=== PATIENT | female | born 1980 | race African-American/Black ===

== ENCOUNTER 2018-11-30 12:19 | Emergency (ER) | payer SELFPAY ==
[2018-11-30] MEDS ORDERED: NA CHLORIDE 0.9% 1,000 ML ONE (12:55)
[2018-11-30] MEDS ORDERED: KETOROLAC 30 MG/ML INJ ONE (12:55)
[2018-11-30] MEDS ORDERED: ONDANSETRON 4 MG/2 ML VIAL ONE (12:55)
[2018-11-30 13:03] LABS: Urine Blood NEGATIVE (NEG); Urine Glucose 2+ (NEG); Urine Protein NEGATIVE (NEG); Urine pH 6.5 (5.0-7.0)
[2018-11-30 13:18] LABS: Absolute Lymphocytes (CBC) 3.6 K/uL (0.7-4.9); Basophils % 0.8 % (0-1.3); Hematocrit 41.4 % (36.0-45.0); Lymphocytes % 44.5 % (15.3-44.8); MPV 8.6 fL (7.6-11.3)
[2018-11-30 13:30] LABS: ALT/SGPT 23 U/L (12-78); AST/SGOT 11 U/L (15-37); Alkaline Phosphatase 113 U/L (45-117); BUN Blood Urea Nitrogen 8 mg/dL (7-18); Bicarbonate 28 mmol/L (21-32); Bilirubin Total 0.3 mg/dL (0.2-1.0); Glucose Level 220 mg/dL (74-106); Potassium 3.9 mmol/L (3.5-5.1); Protein, Total 7.4 g/dL (6.4-8.2); Sodium Level 139 mmol/L (136-145)
--- NOTE | 2018-11-30 13:48 | ER ---
Nurse's Notes [facility] Name: Jeffrey Diaz Age: 38 yrs Sex: Female : 1980 Arrival Date: 11/30/2018 Time: 12:23 Bed 26 Private MD: Diagnosis: Migraine Presentation: 11/30 12:32 Presenting complaint: Patient states: has had a headache for a couple of days. It was dm5 getting a little worse while sitting in orientation. The patient states that she became nauseated and weak after eating a salad. Pt states that she has a history of migraines but that this one is a feels a little different. BP at this time is 123/86 MAP 100. Transition of care: patient was not received from another setting of care. Onset of symptoms was November 30, 2018. Risk Assessment: Do you want to hurt yourself or someone else? Patient reports no desire to harm self or others. Initial Sepsis Screen: Does the patient meet any 2 criteria? No. Patient's initial sepsis screen is negative. Does the patient have a suspected source of infection? No. Patient's initial sepsis screen is negative. Care prior to arrival: None. 12:32 Method Of Arrival: Wheelchair dm5 12:32 Acuity: NADER 3 dm5 Triage Assessment: 12:35 General: Appears in no apparent distress. uncomfortable, Behavior is cooperative. Pain: dm5 Complains of pain in head. Neuro: Level of Consciousness is awake, alert, obeys commands, Reports headache. Cardiovascular: No deficits noted. Respiratory: No deficits noted. GI: Reports nausea. : No deficits noted. No signs and/or symptoms were reported regarding the genitourinary system. Derm: Skin is pink, warm \T\ dry. 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 - Social history:: Smoking status: Patient/guardian denies using tobacco. - Ebola Screening: : Patient negative for fever greater than or equal to 101.5 degrees Fahrenheit, and additional compatible Ebola Virus Disease symptoms Patient denies exposure to infectious person Patient denies travel to an Ebola-affected area in the 21 days before illness onset No symptoms or risks identified at this time. - Family history:: not pertinent. Screenin:45 Abuse screen: Denies threats or abuse. Denies injuries from another. Nutritional ca1 screening: No deficits noted. Tuberculosis screening: No symptoms or risk factors identified. Fall Risk IV access (20 points). Assessment: 12:45 General: Appears in no apparent distress. comfortable, Behavior is calm, cooperative, ca1 appropriate for age. Pain: Complains of pain in right base of the skull and right occipital area and right side of the back of head and right frontal area and left base of the skull and left occipital area and left side of the back of head and left frontal area and forehead and top of head and head Pain currently is 10 out of 10 on a pain scale. Quality of pain is described as throbbing. 12:45 Neuro: Level of Consciousness is awake, alert, obeys commands, Oriented to person, ca1 place, time, situation. Cardiovascular: Heart tones S1 S2 present Capillary refill < 3 seconds Patient's skin is warm and dry. Respiratory: Airway is patent Respiratory effort is even, unlabored, Respiratory pattern is regular, symmetrical, Breath sounds are clear bilaterally. GI: Abdomen is flat, non-distended, Reports nausea. : No deficits noted. No signs and/or symptoms were reported regarding the genitourinary system. EENT: No deficits noted. No signs and/or symptoms were reported regarding the EENT system. Derm: Skin is intact, is healthy with good turgor, Skin is pink, warm \T\ dry. Musculoskeletal: Circulation, motion, and sensation intact. Capillary refill < 3 seconds. 13:30 Reassessment: Patient appears in no apparent distress at this time. Patient and/or ca1 family updated on plan of care and expected duration. Pain level reassessed. Patient is alert, oriented x 3, equal unlabored respirations, skin warm/dry/pink. 14:30 Reassessment: Patient appears in no apparent distress at this time. Patient and/or ca1 family updated on plan of care and expected duration. Pain level reassessed. Patient is alert, oriented x 3, equal unlabored respirations, skin warm/dry/pink. Vital Signs: 12:35 BP 123 / 86; Pulse 79; Resp 17; Temp 98.8; Pulse Ox 100% on R/A; dm5 12:35 Weight 65.77 kg (R); Height 5 ft. 2 in. (157.48 cm); Pain 10/10; ca1 13:30 BP 107 / 74; Pulse 85; Resp 16 S; Pulse Ox 100% on R/A; ca1 14:30 BP 121 / 79; Pulse 81; Resp 16 S; Temp 98(O); Pulse Ox 100% on R/A; ca1 12:35 Body Mass Index 26.52 (65.77 kg, 157.48 cm) ca1 ED Course: 12:23 Patient arrived in ED. iw 12:25 Teto Cardenas MD is Attending Physician. bennett 12:26 Karen Licea, SID is Primary Nurse. ca1 12:34 Triage completed. dm5 12:35 Arm band placed on right wrist. Patient placed in an exam room, in a wheelchair, on dm5 security monitor. 12:45 Patient has correct armband on for positive identification. Placed in gown. Bed in low ca1 position. Call light in reach. Side rails up X2. monitor and storage bin tender on. Pulse ox on. NIBP on. Door closed. Noise minimized. Lights dimmed. Warm blanket given. 12:45 No provider procedures requiring assistance completed. Inserted saline lock: 20 gauge ca1 in right antecubital area, using aseptic technique. Blood collected. 12:50 Urine collected: clean catch specimen, clear, rocky colored. jp3 14:39 IV discontinued, intact, bleeding controlled, No redness/swelling at site. Pressure ca1 dressing applied. Administered Medications: 12:55 Drug: NS 0.9% 1000 ml Route: IV; Rate: 1 bolus; Site: right antecubital; ca1 13:55 Follow up: Response: No adverse reaction; IV Status: Completed infusion; IV Intake: ca1 1000ml 12:55 Drug: TORadol 30 mg Route: IVP; Site: right antecubital; ca1 13:35 Follow up: Response: No adverse reaction; Pain is decreased ca1 12:56 Drug: Zofran 4 mg Route: IVP; Site: right antecubital; ca1 13:30 Follow up: Response: No adverse reaction; Nausea is decreased ca1 Intake: 13:55 IV: 1000ml; Total: 1000ml. ca1 Outcome: 13:48 Discharge ordered by MD. guajardo 14:39 Discharged to home ambulatory. ca1 14:39 Condition: stable 14:39 Discharge instructions given to patient, Instructed on discharge instructions, follow up and referral plans. medication usage, Demonstrated understanding of instructions, follow-up care, medications, Prescriptions given X 2. 14:43 Patient left the ED. ca1 Signatures: Ashlyn Larson, RN RN Teto Garcia MD MD cha Williams, Irene, RN Mitchel Valentin 3 Karen Licea RN RN ca1
--- NOTE | 2018-11-30 13:49 | EDPHYS ---
Physician Documentation [facility] Name: Jeffrey Diaz Age: 38 yrs Sex: Female : 1980 Arrival Date: 11/30/2018 Time: 12:23 Bed 26 Private MD: ED Physician Teto Cardenas HPI: 11/30 12:48 This 38 yrs old Black Female presents to ER via Wheelchair with complaints of Headache. bennett 12:48 The patient complains of pain to the top of head, forehead, left frontal area, left bennett side of the back of head, left occipital area, left base of the skull, right frontal area, right side of the back of head, right occipital area and right base of the skull. The patient describes the headache as aching. Onset: The symptoms/episode began/occurred just prior to arrival, 2 day(s) ago. Associated signs and symptoms: Pertinent positives: weakness. Severity of symptoms: At its worst the pain was mild, moderate, in the emergency department the pain is unchanged. Headache History: The patient has had previous headaches and this one is similar to previous episodes. The symptoms are alleviated by Darkened room, quiet, remaining still, the symptoms are aggravated by lights, movement, noise. The patient has experienced similar episodes in the past, multiple times. 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 - Social history:: Smoking status: Patient/guardian denies using tobacco. - Ebola Screening: : Patient negative for fever greater than or equal to 101.5 degrees Fahrenheit, and additional compatible Ebola Virus Disease symptoms Patient denies exposure to infectious person Patient denies travel to an Ebola-affected area in the 21 days before illness onset No symptoms or risks identified at this time. - Family history:: not pertinent. ROS: 12:48 Constitutional: Negative for fever, chills, and weight loss, Eyes: Negative for injury, bennett pain, redness, and discharge, ENT: Negative for injury, pain, and discharge, Neck: Negative for injury, pain, and swelling, Cardiovascular: Negative for chest pain, palpitations, and edema, Respiratory: Negative for shortness of breath, cough, wheezing, and pleuritic chest pain, Abdomen/GI: Negative for abdominal pain, nausea, vomiting, diarrhea, and constipation, Back: Negative for injury and pain, : Negative for injury, bleeding, discharge, and swelling, MS/Extremity: Negative for injury and deformity, Skin: Negative for injury, rash, and discoloration, Psych: Negative for depression, anxiety, suicide ideation, homicidal ideation, and hallucinations, Allergy/Immunology: Negative for hives, rash, and allergies, Endocrine: Negative for neck swelling, polydipsia, polyuria, polyphagia, and marked weight changes, Hematologic/Lymphatic: Negative for swollen nodes, abnormal bleeding, and unusual bruising. 12:48 Neuro: Positive for headache. Exam: 12:48 Constitutional: This is a well developed, well nourished patient who is awake, alert, bennett and in no acute distress. Head/Face: Normocephalic, atraumatic. Eyes: Pupils equal round and reactive to light, extra-ocular motions intact. Lids and lashes normal. Conjunctiva and sclera are non-icteric and not injected. Cornea within normal limits. Periorbital areas with no swelling, redness, or edema. ENT: Nares patent. No nasal discharge, no septal abnormalities noted. Tympanic membranes are normal and external auditory canals are clear. Oropharynx with no redness, swelling, or masses, exudates, or evidence of obstruction, uvula midline. Mucous membranes moist. Neck: Trachea midline, no thyromegaly or masses palpated, and no cervical lymphadenopathy. Supple, full range of motion without nuchal rigidity, or vertebral point tenderness. No Meningismus. Chest/axilla: Normal chest wall appearance and motion. Nontender with no deformity. No lesions are appreciated. Cardiovascular: Regular rate and rhythm with a normal S1 and S2. No gallops, murmurs, or rubs. Normal PMI, no JVD. No pulse deficits. Respiratory: Lungs have equal breath sounds bilaterally, clear to auscultation and percussion. No rales, rhonchi or wheezes noted. No increased work of breathing, no retractions or nasal flaring. Abdomen/GI: Soft, non-tender, with normal bowel sounds. No distension or tympany. No guarding or rebound. No evidence of tenderness throughout. Back: No spinal tenderness. No costovertebral tenderness. Full range of motion. Skin: Warm, dry with normal turgor. Normal color with no rashes, no lesions, and no evidence of cellulitis. MS/ Extremity: Pulses equal, no cyanosis. Neurovascular intact. Full, normal range of motion. Neuro: Awake and alert, GCS 15, oriented to person, place, time, and situation. Cranial nerves II-XII grossly intact. Motor strength 5/5 in all extremities. Sensory grossly intact. Cerebellar exam normal. Normal gait. Psych: Awake, alert, with orientation to person, place and time. Behavior, mood, and affect are within normal limits. 12:48 Neck: ROM/movement: is normal, no acute changes, Meningeal signs: are not present, Kernig's sign is negative, Brudzinski's sign is negative. Vital Signs: 12:35 BP 123 / 86; Pulse 79; Resp 17; Temp 98.8; Pulse Ox 100% on R/A; dm5 12:35 Weight 65.77 kg (R); Height 5 ft. 2 in. (157.48 cm); Pain 10/10; ca1 13:30 BP 107 / 74; Pulse 85; Resp 16 S; Pulse Ox 100% on R/A; ca1 14:30 BP 121 / 79; Pulse 81; Resp 16 S; Temp 98(O); Pulse Ox 100% on R/A; ca1 12:35 Body Mass Index 26.52 (65.77 kg, 157.48 cm) ca1 MDM: 12:25 Patient medically screened. [facility] 12:51 Data reviewed: vital signs, nurses notes, lab test result(s). [facility] 11/30 12:48 Order name: CBC with Diff; Complete Time: 13:47 [facility] 11/30 12:48 Order name: Comprehensive Metabolic Panel; Complete Time: 13:47 [facility] 11/30 12:59 Order name: Urine Dipstick--Ancillary (enter results); Complete Time: 13:47 11/30 12:59 Order name: Urine --Ancillary (enter results); Complete Time: 13:47 11/30 12:48 Order name: Urine Dipstick-Ancillary (obtain specimen); Complete Time: 12:50 [facility] 11/30 12:48 Order name: Urine Test (obtain specimen); Complete Time: 12:50 [facility] Administered Medications: 12:55 Drug: NS 0.9% 1000 ml Route: IV; Rate: 1 bolus; Site: right antecubital; ca1 13:55 Follow up: Response: No adverse reaction; IV Status: Completed infusion; IV Intake: ca1 1000ml 12:55 Drug: TORadol 30 mg Route: IVP; Site: right antecubital; ca1 13:35 Follow up: Response: No adverse reaction; Pain is decreased ca1 12:56 Drug: Zofran 4 mg Route: IVP; Site: right antecubital; ca1 13:30 Follow up: Response: No adverse reaction; Nausea is decreased ca1 Disposition: 11/30/18 13:48 Discharged to Home. Impression: Migraine. - Condition is Stable. - Discharge Instructions: Migraine Headache, Migraine Headache, [id number]. - Prescriptions for Fioricet with Codeine 50- 325-40-30 mg Oral capsule - take 1 capsule by ORAL route every 4 hours as needed not to exceed 6 capsules per 24hrs; 20 capsule. Zofran 4 mg Oral Tablet - take 1 tablet by ORAL route every 12 hours As needed; 20 tablet. - Medication Reconciliation Form, Thank You Letter, Antibiotic Education, Prescription Opioid Use form. - Follow up: Private Physician; When: 2 - 3 days; Reason: Recheck today's complaints, Continuance of care, Re-evaluation by your physician. - Problem is new. - Symptoms have improved. Signatures: Dispatcher [employer] Ashlyn Bledsoe RN RN dm5 Teto Cardenas MD MD cha Acob, Cheryl, RN RN ca1 Corrections: (The following items were deleted from the chart) 14:43 13:48 11/30/2018 13:48 Discharged to Home. Impression: Migraine. Condition is Stable. ca1 Discharge Instructions: Migraine Headache, Migraine Headache, [id number]. Prescriptions for Fioricet with Codeine 01-724-58-30 mg Oral capsule - take 1 capsule by ORAL route every 4 hours as needed not to exceed 6 capsules per 24hrs; 20 capsule, Zofran 4 mg Oral Tablet - take 1 tablet by ORAL route every 12 hours As needed; 20 tablet. and Forms are Medication Reconciliation Form, Thank You Letter, Antibiotic Education, Prescription Opioid Use. Follow up: Private Physician; When: 2 - 3 days; Reason: Recheck today's complaints, Continuance of care, Re-evaluation by your physician. Problem is new. Symptoms have improved. bennett
== END 2018-11-30 14:43 | disposition home or self-care (01) ==
LOC: ER 12:19
DX: G43.909 Migraine, unspecified, not intractable, without status migrainosus (principal)
CPT/HCPCS: 36415; 80053; 81003; 81025; 85025; 96361; 96374; 96375; 99284; J2405; J7030

== ENCOUNTER 2019-01-16 11:55 | Emergency (ER) | payer OTHER, SELFPAY ==
[2019-01-16] MEDS ORDERED: MORPHINE 4 MG/ML SYR ONE (13:23)
[2019-01-16] MEDS ORDERED: NA CHLORIDE 0.9% 1,000 ML ONE (13:23)
[2019-01-16] MEDS ORDERED: ONDANSETRON 4 MG/2 ML VIAL ONE (13:23)
[2019-01-16 13:29] LABS: Absolute Lymphocytes (CBC) 3.1 K/uL (0.7-4.9); Basophils % 0.9 % (0-1.3); Hematocrit 39.6 % (36.0-45.0); Lymphocytes % 42.7 % (15.3-44.8); MPV 8.8 fL (7.6-11.3); RBC Red Blood Cell Count 4.43 M/uL (3.86-4.86)
--- NOTE | 2019-01-16 13:41 | RAD REPORT ---
EXAM DESCRIPTION: CT - Abdomen Pelvis Wo Contrast - 01/16/2019 1:28 pm CLINICAL HISTORY: Abdominal pain vomiting COMPARISON: None TECHNIQUE: Computed axial tomography of the abdomen and pelvis was obtained. IV and oral contrast we re not requested. All CT scans are performed using dose optimization technique as appropriate and may include automated exposure control or mA/KV adjustment according to patient size. FINDINGS: The evaluation of solid organs, vessels and bowel is limited secondary to the lack of con trast administration. The liver, spleen, pancreas, adrenals and right kidney appear grossly normal. 15 millimeter low-density upper pole left kidney The appendix is normal. There is no evidence of diverticulitis. IMPRESSION: A 15 millimeter low-density upper pole left kidney could either represent a cyst or mild pyelocaliectasis. Normal appendix
[2019-01-16 13:50] LABS: ALT/SGPT 15 U/L (12-78); AST/SGOT 10 U/L (15-37); Albumin 3.9 g/dL (3.4-5.0); Alkaline Phosphatase 121 U/L (45-117); BUN Blood Urea Nitrogen 4 mg/dL (7-18); Bicarbonate 28 mmol/L (21-32); Bilirubin Direct 0.2 mg/dL (0-0.2); Bilirubin Total 0.5 mg/dL (0.2-1.0); Glucose Level 206 mg/dL (74-106); Lipase 120 U/L (73-393); Potassium 3.7 mmol/L (3.5-5.1); Protein, Total 7.2 g/dL (6.4-8.2); Sodium Level 138 mmol/L (136-145)
[2019-01-16 13:53] LABS: Urine Blood NEGATIVE (NEG); Urine Glucose 2+ (NEG); Urine Protein NEGATIVE (NEG); Urine pH 6.5 (5.0-7.0)
--- NOTE | 2019-01-16 14:20 | EDPHYS ---
Physician Documentation [facility] Name: Jeffrey Diaz Age: 38 yrs Sex: Female : 1980 Arrival Date: 01/16/2019 Time: 11:58 Bed 6 Private MD: GUADALUPE Physician Teto Cardenas HPI: 01/16 13:07 This 38 yrs old Black Female presents to ER via Wheelchair with complaints of Abdominal bennett Pain. 13:07 The patient presents with abdominal pain in the upper abdomen, in the lower abdomen. bennett Onset: The symptoms/episode began/occurred 2 day(s) ago. The patient presents to the emergency department with nausea, vomiting, that is continuous. Onset: The symptoms/episode began/occurred 2 day(s) ago. Possible causes: unknown. Associated signs and symptoms: The patient has no apparent associated signs or symptoms. Modifying factors: The symptoms are alleviated by nothing, the symptoms are aggravated by nothing. 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 - Social history:: Smoking status: Patient/guardian denies using tobacco. - Ebola Screening: : No symptoms or risks identified at this time. - Family history:: not pertinent. ROS: 13:07 Constitutional: Negative for fever, chills, and weight loss, Eyes: Negative for injury, bennett pain, redness, and discharge, ENT: Negative for injury, pain, and discharge, Neck: Negative for injury, pain, and swelling, Cardiovascular: Negative for chest pain, palpitations, and edema, Respiratory: Negative for shortness of breath, cough, wheezing, and pleuritic chest pain, Back: Negative for injury and pain, : Negative for injury, bleeding, discharge, and swelling, MS/Extremity: Negative for injury and deformity, Skin: Negative for injury, rash, and discoloration, Neuro: Negative for headache, weakness, numbness, tingling, and seizure, Psych: Negative for depression, anxiety, suicide ideation, homicidal ideation, and hallucinations, Allergy/Immunology: Negative for hives, rash, and allergies, Endocrine: Negative for neck swelling, polydipsia, polyuria, polyphagia, and marked weight changes. 13:07 Abdomen/GI: Positive for abdominal pain, nausea and vomiting, of the right lower quadrant and left lower quadrant. Exam: 13:07 Constitutional: This is a well developed, well nourished patient who is awake, alert, bennett and in no acute distress. Head/Face: Normocephalic, atraumatic. Eyes: Pupils equal round and reactive to light, extra-ocular motions intact. Lids and lashes normal. Conjunctiva and sclera are non-icteric and not injected. Cornea within normal limits. Periorbital areas with no swelling, redness, or edema. ENT: Nares patent. No nasal discharge, no septal abnormalities noted. Tympanic membranes are normal and external auditory canals are clear. Oropharynx with no redness, swelling, or masses, exudates, or evidence of obstruction, uvula midline. Mucous membranes moist. Neck: Trachea midline, no thyromegaly or masses palpated, and no cervical lymphadenopathy. Supple, full range of motion without nuchal rigidity, or vertebral point tenderness. No Meningismus. Chest/axilla: Normal chest wall appearance and motion. Nontender with no deformity. No lesions are appreciated. Cardiovascular: Regular rate and rhythm with a normal S1 and S2. No gallops, murmurs, or rubs. Normal PMI, no JVD. No pulse deficits. Respiratory: Lungs have equal breath sounds bilaterally, clear to auscultation and percussion. No rales, rhonchi or wheezes noted. No increased work of breathing, no retractions or nasal flaring. Back: No spinal tenderness. No costovertebral tenderness. Full range of motion. Female : Normal external genitalia. Skin: Warm, dry with normal turgor. Normal color with no rashes, no lesions, and no evidence of cellulitis. MS/ Extremity: Pulses equal, no cyanosis. Neurovascular intact. Full, normal range of motion. Neuro: Awake and alert, GCS 15, oriented to person, place, time, and situation. Cranial nerves II-XII grossly intact. Motor strength 5/5 in all extremities. Sensory grossly intact. Cerebellar exam normal. Normal gait. Psych: Awake, alert, with orientation to person, place and time. Behavior, mood, and affect are within normal limits. 13:07 Abdomen/GI: Inspection: abdomen appears normal, Bowel sounds: normal, Palpation: mild abdominal tenderness, moderate abdominal tenderness, in the right lower quadrant and left lower quadrant, Liver: no appreciated palpable abnormalities, Hernia: not appreciated. Vital Signs: 12:11 BP 111 / 86; Pulse 91; Resp 16 S; Temp 98.4(O); Pulse Ox 100% on R/A; Weight 68.95 kg aa5 (R); Height 5 ft. 0 in. (152.40 cm) (R); Pain 10/10; 13:46 Pulse 86; Resp 14; Pulse Ox 99% on R/A; Pain 7/10; ch 14:00 BP 118 / 76; Pulse 83; Resp 16 S; Pulse Ox 100% on R/A; jl7 15:00 BP 114 / 70; Pulse 74; Resp 16; Pulse Ox 100% ; Pain 9/10; jl7 12:11 Body Mass Index 29.69 (68.95 kg, 152.40 cm) aa5 MDM: 12:34 Patient medically screened. [facility] 13:09 Data reviewed: vital signs, nurses notes, lab test result(s), EKG, radiologic studies, bennett plain films. 01/16 13:03 Order name: Basic Metabolic Panel; Complete Time: 14:17 [facility] 01/16 13:03 Order name: CBC with Diff; Complete Time: 13:49 [facility] 01/16 13:03 Order name: Creatinine for Radiology; Complete Time: 13:49 [facility] 01/16 13:03 Order name: Hepatic Function; Complete Time: 14:17 [facility] 01/16 13:03 Order name: Lipase; Complete Time: 14:17 [facility] 01/16 13:03 Order name: Urine Culture [facility] 01/16 13:03 Order name: IV Saline Lock; Complete Time: 13:22 [facility] 01/16 13:03 Order name: CT Abd/Pelvis - Without Contrast; Complete Time: 13:49 [facility] 01/16 13:42 Order name: Urine Dipstick--Ancillary (enter results); Complete Time: 14:17 01/16 13:42 Order name: Urine --Ancillary (enter results); Complete Time: 14:17 01/16 13:03 Order name: Labs collected and sent; Complete Time: 13:22 [facility] 01/16 13:03 Order name: Urine Dipstick-Ancillary (obtain specimen); Complete Time: 13:22 bennett Administered Medications: 13:46 Drug: NS 0.9% 1000 ml Route: IV; Rate: 1 bolus; Site: left antecubital; 15:00 Follow up: Response: No adverse reaction; IV Status: Completed infusion; IV Intake: jl7 1000ml 13:46 Drug: morphine 4 mg Route: IVP; Site: left antecubital; 14:49 Follow up: Response: No adverse reaction; Pain is unchanged, physician notified jl7 13:46 Drug: Zofran 4 mg Route: IVP; Site: left antecubital; 14:49 Follow up: Response: No adverse reaction jl7 15:30 Drug: morphine 2 mg Route: IVP; Site: left antecubital; 7 15:35 Follow up: Response: No adverse reaction; Pain is decreased jl7 Disposition: 01/16/19 14:19 Discharged to Home. Impression: Abdominal tenderness, Hyperglycemia, unspecified. - Condition is Stable. - Discharge Instructions: Abdominal Pain, Adult, Hyperglycemia, Nausea and Vomiting, Adult, Abdominal Pain, Adult, [id number], Hyperglycemia, [id number]. - Prescriptions for Bentyl 20 mg Oral Tablet - take 1 tablet by ORAL route every 6 hours As needed; 20 tablet. Pepcid 20 mg Oral Tablet - take 1 tablet by ORAL route every 12 hours for 10 days; 20 tablet. Zofran 4 mg Oral Tablet - take 1 tablet by ORAL route every 12 hours As needed; 20 tablet. - Medication Reconciliation Form, Thank You Letter, Antibiotic Education, Prescription Opioid Use form. - Follow up: Private Physician; When: 2 - 3 days; Reason: Recheck today's complaints, Continuance of care, Re-evaluation by your physician. - Problem is new. - Symptoms have improved. Signatures: Dispatcher [employer] EDMS Juana Soliman RN RN ch Anderson, Corey, MD MD cha Calderon, Audri RN RN per5 Yuki Roberson RN RN jl7 Corrections: (The following items were deleted from the chart) 14:19 14:19 01/16/2019 14:19 Discharged to Home. Impression: Abdominal tenderness. Condition bennett is Stable. Forms are Medication Reconciliation Form, Thank You Letter, Antibiotic Education, Prescription Opioid Use. Follow up: Private Physician; When: 2 - 3 days; Reason: Recheck today's complaints, Continuance of care, Re-evaluation by your physician. Problem is new. Symptoms have improved. [facility] 15:41 14:19 01/16/2019 14:19 Discharged to Home. Impression: Abdominal tenderness; jl7 Hyperglycemia, unspecified. Condition is Stable. Forms are Medication Reconciliation Form, Thank You Letter, Antibiotic Education, Prescription Opioid Use. Follow up: Private Physician; When: 2 - 3 days; Reason: Recheck today's complaints, Continuance of care, Re-evaluation by your physician. Problem is new. Symptoms have improved. bennett
--- NOTE | 2019-01-16 14:20 | ER ---
Nurse's Notes [facility] Name: Jeffrey Diaz Age: 38 yrs Sex: Female : 1980 Arrival Date: 01/16/2019 Time: 11:58 Bed 6 Private MD: Diagnosis: Abdominal tenderness;Hyperglycemia, unspecified Presentation: 01/16 12:09 Presenting complaint: Patient states: lower abd pain , lower back pain, and migraine aa5 that began yesterday. Pt also reports vomiting, denies diarrhea. Transition of care: patient was not received from another setting of care. Onset of symptoms was December 2018. Risk Assessment: Do you want to hurt yourself or someone else? Patient reports no desire to harm self or others. Initial Sepsis Screen: Does the patient meet any 2 criteria? No. Patient's initial sepsis screen is negative. Does the patient have a suspected source of infection? No. Patient's initial sepsis screen is negative. Care prior to arrival: None. 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 - Social history:: Smoking status: Patient/guardian denies using tobacco. - Ebola Screening: : No symptoms or risks identified at this time. - Family history:: not pertinent. Screenin:22 Abuse screen: Denies threats or abuse. Denies injuries from another. Nutritional jl7 screening: No deficits noted. Tuberculosis screening: No symptoms or risk factors identified. Fall Risk IV access (20 points). Total Lewis Fall Scale indicates No Risk (0-24 pts). Assessment: 13:50 General: Appears uncomfortable, Behavior is appropriate for age, anxious. Pain: jl7 Complains of pain in left lower quadrant Pain radiates to right lower quadrant Pain Quality of pain is described as sharp, shooting, Pain began 1 day ago. Is continuous. Neuro: Level of Consciousness is awake, alert, obeys commands, Oriented to person, place, time, situation. Cardiovascular: Patient's skin is warm and dry. Respiratory: Airway is patent Respiratory effort is even, unlabored, Respiratory pattern is regular, symmetrical. GI: Abdomen is flat, non-distended, Bowel sounds present X 4 quads. Abd is soft X 4 quads Abdomen is tender to palpation in right lower quadrant and left lower quadrant Guarding noted in right lower quadrant and left lower quadrant Reports nausea, Patient currently denies constipation, diarrhea, vomiting. : Denies burning with urination. EENT: No signs and/or symptoms were reported regarding the EENT system. Derm: Skin is dry, Skin is normal, Skin temperature is warm. Musculoskeletal: No signs and/or symptoms reported regarding the musculoskeletal system. 14:25 Reassessment: Pt will be discharged after fluids are done infusing and ERD goes to talk jl7 to pt for discharge. 15:15 Reassessment: Dr. Cardenas at bedside discussing plan of care, VO for 2 mg Morphine IVP.jl7 Vital Signs: 12:11 BP 111 / 86; Pulse 91; Resp 16 S; Temp 98.4(O); Pulse Ox 100% on R/A; Weight 68.95 kg aa5 (R); Height 5 ft. 0 in. (152.40 cm) (R); Pain 10/10; 13:46 Pulse 86; Resp 14; Pulse Ox 99% on R/A; Pain 7/10; ch 14:00 BP 118 / 76; Pulse 83; Resp 16 S; Pulse Ox 100% on R/A; jl7 15:00 BP 114 / 70; Pulse 74; Resp 16; Pulse Ox 100% ; Pain 9/10; jl7 12:11 Body Mass Index 29.69 (68.95 kg, 152.40 cm) aa5 ED Course: 11:58 Patient arrived in ED. mr 12:10 Triage completed. aa5 12:10 Arm band placed on. aa5 12:34 Teto Cardenas MD is Attending Physician. [facility] 13:11 Yuki Roberson RN is Primary Nurse. [facility] 13:22 Patient has correct armband on for positive identification. Placed in gown. Bed in low jl7 position. Call light in reach. Side rails up X 1. Pulse ox on. NIBP on. Warm blanket given. 13:22 Initial lab(s) drawn, by me, sent to lab. Urine collected: clean catch specimen, clear. jl7 Inserted saline lock: 22 gauge in left antecubital area, using aseptic technique. Blood collected. 13:28 CT completed. Patient tolerated procedure well. Patient moved back from CT. mw3 13:30 CT Abd/Pelvis - Without Contrast In Process Unspecified. EDMS Administered Medications: 13:46 Drug: NS 0.9% 1000 ml Route: IV; Rate: 1 bolus; Site: left antecubital; 15:00 Follow up: Response: No adverse reaction; IV Status: Completed infusion; IV Intake: jl7 1000ml 13:46 Drug: morphine 4 mg Route: IVP; Site: left antecubital; 14:49 Follow up: Response: No adverse reaction; Pain is unchanged, physician notified jl7 13:46 Drug: Zofran 4 mg Route: IVP; Site: left antecubital; 14:49 Follow up: Response: No adverse reaction jl7 15:30 Drug: morphine 2 mg Route: IVP; Site: left antecubital; jl7 15:35 Follow up: Response: No adverse reaction; Pain is decreased jl7 Intake: 15:00 IV: 1000ml; Total: 1000ml. jl7 Outcome: 14:19 Discharge ordered by MD. guajardo 15:41 Patient left the ED. jl7 Signatures: Dispatcher [employer] EDMS Juana Soliman, RN Teto Che ch, MD MD cha Rivera, Mary mr Sen, Tyra, RN RN aa5 Yuki Roberson RN SID [email or web address] Magda Lin 3
[2019-01-16] MEDS ORDERED: MORPHINE 2 MG/ML SYR ONE (15:31)
[2019-01-16 15:46] VITALS: TEMP 98.4
[2019-01-16 15:48] VITALS: O2SAT 100
[2019-01-16 15:50] VITALS: BP 114/70
== END 2019-01-16 15:41 | disposition home or self-care (01) ==
LOC: ER 11:55
DX: R73.9 Hyperglycemia, unspecified (principal); Z91.048 Other nonmedicinal substance allergy status
CPT/HCPCS: 96361; 87088; 85025; 87086; 80048; 36415; 81025; 80076; 81003; 83690; 74176; 96375; 96374; 99284; J2270; J7030; J2405

== ENCOUNTER 2019-11-04 06:52 | Day surgery (SDC) | payer OTHER ==
[2019-11-01 14:17] LABS: Urine Appearance CLEAR; Urine Bilirubin NEGATIVE (NEG); Urine Blood NEGATIVE (NEG); Urine Color YELLOW; Urine Glucose 3+ (NEG); Urine Protein NEGATIVE (NEG); Urine Specific Gravity >=1.030 (1.005-1.030); Urine Urobilinogen 0.2 mg/dL (0.2-1.0); Urine pH 5.5 (5.0-7.0)
[2019-11-01 14:19] LABS: Absolute Lymphocytes (CBC) 4.1 K/uL (0.7-4.9); Basophils % 0.7 % (0-1.3); Hematocrit 42.8 % (36.0-45.0); Lymphocytes % 35.9 % (15.3-44.8); MPV 8.6 fL (7.6-11.3); RBC Red Blood Cell Count 4.71 M/uL (3.86-4.86)
[2019-11-01 14:26] LABS: Urine Microscopic Reflex NO UMIC
[2019-11-01 14:40] LABS: BUN Blood Urea Nitrogen 8 mg/dL (7-18); Bicarbonate 24 mmol/L (21-32); Glucose Level 139 mg/dL (74-106); Potassium 3.9 mmol/L (3.5-5.1); Sodium Level 141 mmol/L (136-145)
--- OUTSIDE RECORDS SUMMARY | 2019-11-04 06:54 | XMS REPORT | Continuity of Care Document ---
:1980 Author Organization [facility] t Address [address] [place] [address] Care Team Providers Name Role Phone Surya MCLAUGHLIN Attending Clinician Keshav Schmitt Attending Clinician Problems Condition Condition Condition Status Onset Resolution Last Treating Co mments Source Name Details Category Date Date Treatment Clinician Date LOWER BACK Diagnosis Active 2018-07-01 Memoria PAIN 9-15 14:13:00 l LOWER 00:00: Robert BACK PAIN 00 Active 01/03/2017 [facility] Fall on Problem 2017-09-05 Eloy heriberto same level 15:25:21 l from Fall on Chrisney slipping, same level tripping from and slipping, stumbling tripping without and subsequent stumbling striking without against subsequent object, striking initial against encounter object, initial encounter 09/05/2017 [facility] Radiculopa Problem 2017-2017-09-05 2017-09-05 Memoria thy, 2-15 15:25:21 15:25:21 l lumbar 04:25: Robert region Radiculopa 58 thy, lumbar region 06/05/2017 09/05/2017 [facility] Allergies, Adverse Reactions, Alerts Allergy Allergy Status Severity Reaction(s) Onset Inactive Treating Comm ents Source Name Type Date Date Clinician iodine iodine Active Memoria topical topical l Chrisney Medications Ordered Filled Start Stop Current Ordering Indication Dosage Frequency Signature Comments Components Source Medication Medication Date Date Medication? Clinician (SIG) Name Name Acetaminoph No 1 tab, PO, Memoria en 300 MG / 2-09 Q6H, PRN l Codeine 23:58: Pain, X 7 Aleja nn Phosphate 00 day, # 16 30 MG Oral tab, 0 Tablet Refill(s) [Tylenol with Codeine #3] baclofen 10 Yes 10 mg = 1 M emoria mg oral -09 tab, PO, l tablet 23:57: TID, PRN Robert 00 Spasms, # 24 tab, 0 Refill(s) ibuprofen 2017-0 No 800 mg = 1 Me moria 800 mg oral - tab, PO, l tablet 23:47: Q8H, PRN Chrisney 00 Pain, Take with food, X 8 day, # 28 tab, 0 Refill(s) Dexamethaso 2018-0 No 10 mg, Eloy heriberto ne 05-30 Route: IM, l 23:20: ONCE, Dosing Weight 77.273, kg, Priority: STAT, Start date: 05/30/17 17:20:00 [employer], Stop date: 05/30/17 17:20:00 [employer] Diazepam 2018-0 No 5 mg, Memoria 05-30 Route: PO, l 23:18: ONCE, Dosing Weight 77.273, kg, Priority: STAT, Start date: 05/30/17 17:18:00 [employer], Stop date: 05/30/17 17:18:00 [employer] ketOROLAC 2018-0 No 30 mg, Memori a 30 mg/mL 05-30 Route: IM, l injectable 23:17: Drug form: H ermann solution 00 INJ, ONCE, Dosing Weight 77.273, kg, Priority: STAT, Start date: 05/30/17 17:17:00 [employer], Stop date: 05/30/17 17:17:00 [employer] Vital Signs Vital Name Observation Time Observation Value Comments Source Systolic (mm Hg) 2017-05-30 23:01:00 Eloy brad Jones Diastolic (mm Hg) 2017-05-30 23:01:00 [facility] oritani Jones Temperature Oral (F) 2017-05-30 23:01:00 98.4 F [facility] Weight 2017-05-30 23:01:00 [facility] Heart Rate 2017-05-30 23:01:00 [facility] Respitory Rate 2017-05-30 23:01:00 Gigi Jung Procedures This patient has no known procedures. Encounters Start End Encounter Admission Attending Care Care Encounter Source Date/Time Date/Time Type Type Clinicians Facility Department ID 2018-12-14 2018-12-14 Emergency Surya [facility] [id number] 11:20:59 14:55:00 [place]u [place] [id number] [place] [id number] [place] [id number] 2017-05-30 2017-05-30 Outpatient Oskar [facility] [id number] 16:58:00 18:08:00 [place] 00 Keshav Results This patient has no known results.
--- OUTSIDE RECORDS SUMMARY | 2019-11-04 06:54 | XMS REPORT | Continuity of Care Document ---
:1980 Author Organization [facility] Care Team Providers Name Role Phone [facility] Unavailable Un available Problems Problem Status Onset Classification Date Comments Sourc e Date Reported Radiculopathy, 09/05/2017 [facility] lumbar region 8 LOWER BACK Active [facility] 7 Fall on same 09/05/2017 [facility] Samantha thwest level from slipping, tripping and stumbling without subsequent striking against object, initial encounter Medications Medication Details Route Status Patient Ordering Order Source Instructions Provider Date Acetaminophen 1 tab, PO, No Longer 300 MG / Codeine Q6H, PRN Active 018 [facility] est Phosphate 30 MG Pain, X 7 Oral Tablet day, # 16 [Tylenol with tab, 0 Codeine #3] Refill(s) baclofen 10 mg 10 mg = 1 Active oral tablet tab, PO, 018 [facility] TID, PRN Spasms, # 24 tab, 0 Refill(s) ibuprofen 800 mg 800 mg = 1 No Longer oral tablet tab, PO, Active 018 [facility] Q8H, PRN Pain, Take with food, X 8 day, # 28 tab, 0 Refill(s) Dexamethasone 10 mg, Inactive Route: IM, 018 [facility] ONCE, Dosing Weight 77.273, kg, Priority: STAT, Start date: 05/30/17 17:20:00 F[employer]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, Stop date: 05/30/17 17:20:00 FACILITIES 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 Diazepam 5 mg, Inactive Route: PO, 018 [facility] ONCE, Dosing Weight 77.273, kg, Priority: STAT, Start date: 05/30/17 17:18:00 FACILITIES 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, Stop date: 05/30/17 17:18:00 FACILITIES 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 ketOROLAC 30 30 mg, Inactive mg/mL injectable Route: IM, 018 [facility] solution Drug form: INJ, ONCE, Dosing Weight 77.273, kg, Priority: STAT, Start date: 05/30/17 17:17:00 FACILITIES 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, Stop date: 05/30/17 17:17:00 FACILITIES 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 Allergies, Adverse Reactions, Alerts Substance Category Reaction Severity Reaction Status Date Comments S ource type Reported iodine Assertion Drug Active topical allergy [facility] t Immunizations No Data Provided for This Section Results No Data Provided for This Section Pathology Reports No Data Provided for This Section Diagnostic Reports Report Value Date Source Spine lumbar 2 or 3 Patient Name: RASHARD DELACRUZ 05/30/2017 [facility] views DX : 1980; Age: 36 years y/o Female MR: [id number] Study: Spine lumbar 2 or 3 views DX 05/30/2017 5:1 1 PM 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 There are no fractures, pars defects, or spondylolisthesis. The intervertebral disc spaces are nor mal. The posterior elements, spinous processes and transverse processes are normal. The paraspinal soft tissues are unremarkable. The visualized sacroiliac joints are unremarkable. If there is further concern or neurological abnormalities on clinical exam, MRI or CT of the lumbar spine may be performed for complete assessment. IMPRESSION: Unremarkable lumbar spine series. SL: ABBY-DELBERT Consultation Notes No Data Provided for This Section Discharge Summaries No Data Provided for This Section History and Physicals No Data Provided for This Section Vital Signs Vital Sign Value Date Comments Source Systolic (mm Hg) 141 05/30/2017 [facility] t Diastolic (mm Hg) 96 05/30/2017 [facility] Temperature Oral (F) 98.4 F 05/30/2017 [facility] Weight 77.273 05/30/2017 [facility] Heart Rate 98 05/30/2017 [facility] Respitory Rate 18 05/30/2017 [facility] Encounters Location Location Encounter Encounter Reason Attending ADM DC Stat us Source Details Type Number For Provider Date Date [facility] [id number] [place] 05/30 05/31 Robert Schmitt /2017 [facility] Procedures No Data Provided for This Section Assessment and Plan No Data Provided for This Section Plan of Care No Data Provided for This Section Social History Social History Date Source Social History TypeResponse 05/30/2017 [facility] Smoking Status Unknown if ever smoked; 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
[2019-11-04 07:14] LABS: Specific Gravity >= 1.030 (1.005-1.030)
[2019-11-04] MEDS ORDERED: Ringers Lactate 1,000 ML IV ONE ×2 (07:19→13:32)
[2019-11-04] MEDS ORDERED: SCOPOLAMINE HYDROBROMIDE PATCH TD ONE (07:30)
[2019-11-04] MEDS ORDERED: NA CHLORIDE 0.9% 1,000 ML ONE (07:30)
[2019-11-04] MEDS ORDERED: CEFAZOLIN/SWI 2gm 2 GM/20 ML SYR ONE (07:31)
[2019-11-04] MEDS ORDERED: FENTANYL CITR 100 MCG/2 ML ONE ×2 (07:55→10:33)
[2019-11-04] MEDS ORDERED: propofoL 200 MG/20 ML VIAL IV ONE (07:56)
[2019-11-04] MEDS ORDERED: LIDOCAINE 2% MPF 5 ML VIAL ONE (07:56)
[2019-11-04] MEDS ORDERED: ROCURONIUM 50 MG/5 ML VIAL IV ONE (08:00)
[2019-11-04] MEDS ORDERED: MIDAZOLAM HCL 2 MG/2 ML INJ ONE (08:04)
[2019-11-04] MEDS ORDERED: dexAMETHasone 10 MG/ML VIAL ONE (08:47)
[2019-11-04] MEDS ORDERED: ONDANSETRON 4 MG/2 ML VIAL ONE (08:47)
[2019-11-04] MEDS ORDERED: KETOROLAC 30 MG/ML INJ ONE (08:47)
[2019-11-04] MEDS: BUPIVACAINE 0.25% PF 30 ML VIAL ONE ×2 (09:03→09:30)
[2019-11-04] MEDS ORDERED: NS 0.9% VIAL 10 ML ONE (10:33)
[2019-11-04] MEDS ORDERED: VECURONIUM 10 MG/VIAL IV ONE (10:34)
[2019-11-04] MEDS ORDERED: GLYCOPYRROLATE 0.2 MG/ML SYR ONE (11:55)
[2019-11-04] MEDS ORDERED: NEOSTIGMINE 1 MG/ML -5 ML ONE (11:56)
[2019-11-04] MEDS ORDERED: MEPERIDINE HCL 25 MG/ML SYR ONE (11:57)
[2019-11-04] MEDS: MEPERIDINE HCL 25 MG/ML SYR ONE ×2 (12:28→12:37)
[2019-11-04] MEDS: HYDROMORPHONE HCL 1 MG/ML INJ ONE ×2 (12:34→12:40)
[2019-11-04] MEDS ORDERED: PROMETHAZINE INJ 25 MG/ML AMP ONE (12:41)
[2019-11-04] MEDS ORDERED: HYDROMORPHONE HCL 1 MG/ML INJ ONE (12:56)
[2019-11-04] MEDS ORDERED: HYDROCODONE/APAP 5/325 MG TAB ONE (13:51)
[2019-11-04 13:52] VITALS: TEMP 97.9
[2019-11-04 14:47] VITALS: BP 138/71; O2SAT 100
--- NOTE | 2019-11-04 23:12 | OP ---
Date of Procedure: 11/04/2019 Surgeon: Anneliese Haque MD Unemployment Insurance Hearing Officer: Neli Lucia. Preoperative Diagnoses: Pelvic pain, dysmenorrhea, menorrhagia for which she had an ablation and now she has secondary amenorrhea, sickle cell trait. Postoperative Diagnoses: Pelvic pain, dysmenorrhea, menorrhagia for which she had an ablation and no w she has secondary amenorrhea, sickle cell trait, fibroids, no endometriosis with bilateral tubo-ova adria adhesions, adhesions of the bladder. Procedures Performed: 1.Total laparoscopic hysterectomy and bilateral salpingectomy. 2.Right ovariopexy. 3.Bilateral lysis of tubo-ovarian adhesions extensively and vaginal morcellation for retrieval of sp ecimen due to the size of the uterus. The uterine size was 260 g as measured in the OR. Anesthesia: General endotracheal. Estimated Blood Loss: Minimal. Complications: No complications. Drains: No drains. Condition: The patient's condition stable. Indications For Procedure: The patient is a 39-year-old 2, para 2, who had a tubal ligation in the past and ablation for bleeding, recently increased pelvic pain. On evaluation, possible cyst, slightly enlarged uterus, small myomata. After going through all the options and alternatives and b enefits of the procedure, she preferred to proceed with hysterectomy and bilateral salpingectomy, pos sible left oophorectomy if endometriosis was seen. She actually had a consultation with the hematolo gist to evaluate her sickle cell status. The patient believes that she had sickle cell disease and t hat she had crisis in the past, but on re-evaluation and further blood testing, her family support specialist dete rmined that hers was just the sickle cell trait and she was counseled appropriately. Description Of Procedure: After informed consent was verified, she was taken back to OR, placed in s upine fashion on the operating table. General anesthesia was given, placed in a dorsal lithotomy pos ition. Pelvic exam performed. Abdomen, vulva, vagina, and perineum were prepped and draped in a makayla rile fashion. Stahl was placed to drain the bladder and large VCare introduced into the uterus and f ixed in place. A 1 cm supraumbilical incision made with a scalpel using the open laparoscopy techniq ue. Fascia was incised. Peritoneum entered sharply. Tag sutures placed on edges of the fascia. Granger sson introduced. Peritoneal cavity insufflated. Site of entry was checked, unremarkable. Upper abd ominal surfaces were surveyed as well and were negative. After the patient was placed in Trendelenbu rg position, both tubes and ovaries were evaluated. Then, they had very dense adhesions of the tube and ovary to the lateral wall, posterior broad ligament, and to the sidewall. So, first before even starting the surgery, had to take down these adhesions for me to be able to get to the posterior aspe ct of the uterus itself. So, 5 left and right lower quadrant ports were placed, 10 suprapubic port. The bowel was retracted with a 3-0 Monocryl with a Craig-Albino needle from the left upper quadra nt. Then, after inspecting the posterior wall, the ureters were drawn closer near the cup, but other vazquez, no other distortions were seen. Tubo-ovarian adhesions were first taken down. The lateral adh esions of the tube were taken down. The tube had endometriosis close to its attachment to the uterus . This was dissected and removed. Then, mesosalpinx was taken down from the level of the fimbriated end and all the way. The tube was removed. There were adhesions between the tube and the ovary and these were also lysed. There were adhesions of the ovary to the posterior broad ligament and these were systematically taken down after getting good retraction. Then, once all these adhesions were ta rick down sharply as well as with the LigaSure, the ovary was freed up and then the utero-ovarian liga ment was taken down. Round ligament was taken down and broad ligament was opened up. The vessels we re skeletonized on the opposite side in similar fashion. The tube was resected, the proximal half. Then, utero-ovarian ligament taken down, round ligament taken down. Anteriorly, broad ligament was c onnected with the bladder flap. The bladder was dissected inferiorly on the anterior vaginal wall. Posteriorly, peritoneum taken down to the right uterosacral, was able to skeletonize the vessels whil e here as well. Then, vessels were cauterized with the bipolar and taken down with the LigaSure on b oth sides. Cardinal ligaments were also taken down. Circumferential colpotomy was performed with a monopolar hook blade used to perform this. The specimen was attempted to be pulled out through the v agina without morcellation and it did not work , so went vaginally. A vaginal tray was taken for mass clamps and a 10 blade with suction evacuator separately for this pa rt of the procedure. Lots of venous bleeding was seen that had come out. Then, the specimen was mor cellated to be retrieved through the vaginal canal. Once this was done, went back up on the top. Th ere were small areas of bleeding at the uterosacral attachments and these were cauterized with the lp of bipolar. Then, vaginal cuff closure with 0 PDS x5, 2 angle stitches, 3 eibahum-nn-jqqer in the center, very well apposed vaginal vault. The patient is doing well. The right ovary was stretched out because of her fibroids and was very droopy, increased risk of tors ion, so the ovary was taken and tacked to the base of the round ligament that was detached via 3-0 Mo nocryl suture. The left ovary appeared to be completely unremarkable and was left alone as discussed . Then, all the trocars were removed. Gas was desufflated. Fascial ports and skin were injected wi th 0.25% Marcaine with epi both at entry and exit. After the gas was desufflated, fascia was closed at the umbilicus with 0 Vicryl in a fashion that the ends were tied together. Then, suprapubic fasci al incision closed with simple 0 Vicryl stitch and then all the skin incisions with 4-0 Vicryl interr upted. The Stahl was removed and bladder cystoscopy was performed with a 17-Serbian sheath, 30-degree lens, n ormal saline. Strong jets of urine from both ureteric orifices. No evidence of any trauma. Bladder was then drained. Vagina cleaned up. There was excellent position of the edges at the top. The pa tient tolerated the procedure well. She will follow up with me in 1 week and then 4 weeks. RICHARD/SHARAD Voice ID: [id number] Report ID: [id number]
== END 2019-11-04 14:35 | disposition home or self-care (01) ==
LOC: OR 06:52
PROVIDERS: ATTEND Obstetrics & Gynecology
PROC: 0UT7FZZ Resection of Bilateral Fallopian Tubes, Via Natural or Artificial Opening With Percutaneous Endoscopic Assistance (ICD-10-PCS; 2019-11-04)
PROC: 0US04ZZ Reposition Right Ovary, Percutaneous Endoscopic Approach (ICD-10-PCS; 2019-11-04)
PROC: 0UT9FZZ Resection of Uterus, Via Natural or Artificial Opening With Percutaneous Endoscopic Assistance (ICD-10-PCS; principal; 2019-11-04 08:00)
DX: N94.6 Dysmenorrhea, unspecified (principal); N91.1 Secondary amenorrhea; N80.2 Endometriosis of fallopian tube; N73.6 Female pelvic peritoneal adhesions (postinfective); N32.89 Other specified disorders of bladder; N88.8 Other specified noninflammatory disorders of cervix uteri; D25.9 Leiomyoma of uterus, unspecified; N94.12 Deep dyspareunia; E11.9 Type 2 diabetes mellitus without complications; D57.219 Sickle-cell/Hb-C disease with crisis, unspecified; F17.210 Nicotine dependence, cigarettes, uncomplicated; Z79.84 Long term (current) use of oral hypoglycemic drugs; Z80.41 Family history of malignant neoplasm of ovary; Z80.49 Family history of malignant neoplasm of other genital organs; Z80.0 Family history of malignant neoplasm of digestive organs
CPT/HCPCS: 85025; 80048; 36415; 86900; 86850; 81025; 86901; 82947 ×2; 88307; 81003; 58554; 58999; U0002; J2704; J2550; J2250; J3010 ×2; J1100; J2175 ×2; J1170 ×2; J2710; J0690; J7120 ×2; J7030; J2405

== ENCOUNTER 2021-08-29 16:27 | Emergency (ER) | payer OTHER ==
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
[2021-08-29] MEDS ORDERED: HYDROCODONE/APAP 5/325 MG TAB ONE (17:12)
--- NOTE | 2021-08-29 17:19 | RAD REPORT ---
EXAM DESCRIPTION: CT - Head C Spine Mpr Wo Con - 08/29/2021 5:07 pm CLINICAL HISTORY: Head and neck injury status post fall. Head and neck pain COMPARISON: None. TECHNIQUE: Computed axial tomography of the head and cervical spine was obtained. Sagittal and coronal reconstruction was performed. All CT scans are performed using dose optimization technique as appropriate and may include automated exposure control or mA/KV adjustment according to patient size. FINDINGS: An intracranial bleed is not seen. The ventricles are normal in caliber. An extra-axial fl uid collection is not noted.Fluid within the visualized sinuses and mastoids is not seen A cervical fracture is not visualized. No dislocation is noted. IMPRESSION: No acute intracranial abnormality is seen. A cervical fracture is not visualized. If the patient continues to have symptoms to suggest intracra nial /spinal cord pathology then MRI would be recommended
--- NOTE | 2021-08-29 17:42 | RAD REPORT ---
EXAM DESCRIPTION: RAD - Pelvis - 08/29/2021 5:36 pm CLINICAL HISTORY: Pelvic pain status post injury FINDINGS: No fracture or dislocation is seen.
--- NOTE | 2021-08-29 17:43 | RAD REPORT ---
EXAM DESCRIPTION: RAD - Lumbar Spine 3 Views - 08/29/2021 5:36 pm CLINICAL HISTORY: Back pain FINDINGS: The alignment of the lumbar spine is satisfactory. No fracture or dislocation is seen. Sacralization of L5
--- NOTE | 2021-08-29 17:45 | RAD REPORT ---
EXAM DESCRIPTION: RAD - Ribs Left - 08/29/2021 5:36 pm CLINICAL HISTORY: Rib pain FINDINGS: Rib fracture is not visualized
--- NOTE | 2021-08-29 17:46 | RAD REPORT ---
EXAM DESCRIPTION: Bhupinder Single View08/29/2021 5:36 pm CLINICAL HISTORY: Chest pain COMPARISON: none FINDINGS: The lungs appear clear of acute infiltrate. The heart is normal size IMPRESSION: No acute abnormalities displayed
[2021-08-29 17:57] LABS: Urine Blood Negative (Negative); Urine Glucose 3+ (Negative); Urine Protein Negative (Negative)
[2021-08-29 17:58] LABS: Absolute Lymphocytes (CBC) 3.8 K/uL (0.7-4.9); Hematocrit 41.5 % (36.0-45.0); Lymphocytes % 41.5 % (15.3-44.8); MPV 7.9 fL (7.6-11.3); RBC Red Blood Cell Count 4.61 M/uL (3.86-4.86)
[2021-08-29 18:12] LABS: Potassium 3.8 mmol/L (3.5-5.1)
--- NOTE | 2021-08-29 18:14 | EDPHYS ---
Physician Documentation [facility] Name: Jeffrey Diaz Age: 40 yrs Sex: Female : 1980 Arrival Date: 08/29/2021 Time: 16:30 Bed 10 Private MD: ED Physician Natanael Ramirez HPI: 08/29 16:56 This 40 yrs old Black Female presents to ER via Ambulatory with complaints of Fall ms3 Injury, Head Injury Without LOC-Adult, Back Pain. 16:56 Details of fall: The patient fell from an upright position, while standing, and struck ms3 Hard floor. Onset: The symptoms/episode began/occurred today. Associated injuries: The patient sustained injury to the head, pain, injury to the chest, Pain, Left shoulder. Severity of symptoms: At their worst the symptoms were severe. 40-year-old female with past medical history of migraines, PTSD, anxiety presents for head pain, left shoulder pain, left rib pain status post falling prior to arrival. 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 Patient states she is in severe pain that is aching. Patient denies alleviating factors.. 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 - Social history:: Smoking status: Patient reports the use of cigarette tobacco products. ROS: 16:56 Constitutional: Negative for fever, and chills. Neck: Negative for injury, pain, and ms3 swelling, Cardiovascular: Negative for chest pain, and palpitations. Respiratory: Negative for shortness of breath, cough, wheezing, and pleuritic chest pain, Abdomen/GI: Negative for abdominal pain, nausea, vomiting, diarrhea, and constipation. 16:56 MS/extremity: Positive for pain, Head, Left chest, Left shoulder. 16:56 All other systems are negative. Exam: 16:56 Constitutional: This is a well developed, well nourished patient who is awake, alert, ms3 and in no acute distress. Eyes: Pupils equal round and reactive to light, extra-ocular motions intact. Lids and lashes normal. Conjunctiva and sclera are non-icteric and not injected. Periorbital areas with no swelling, redness, or edema. ENT: Nares patent. No nasal discharge, no septal abnormalities noted. Tympanic membranes are normal and external auditory canals are clear. Oropharynx with no redness, swelling, or masses, exudates, or evidence of obstruction, uvula midline. Mucous membranes moist. Neck: Trachea midline, no cervical lymphadenopathy. Supple, full range of motion without nuchal rigidity, or vertebral point tenderness. No Meningismus. Chest/axilla: Normal chest wall appearance and motion. Nontender with no deformity. Cardiovascular: Regular rate and rhythm with a normal S1 and S2. No gallops, murmurs, or rubs. Normal PMI, no JVD. No pulse deficits. Respiratory: Lungs have equal breath sounds bilaterally, clear to auscultation and percussion. No rales, rhonchi or wheezes noted. No increased work of breathing, no retractions or nasal flaring. Abdomen/GI: Soft, non-tender, with normal bowel sounds. No distension or tympany. No guarding or rebound. No evidence of tenderness throughout. Neuro: Awake and alert, GCS 15, oriented to person, place, time, and situation. Cranial nerves II-XII grossly intact. Motor strength 5/5 in all extremities. Sensory grossly intact. Cerebellar exam normal. Normal gait. 16:56 Musculoskeletal/extremity: Extremities: noted in the Left shoulder: pain, tenderness, noted in the Left ribs: pain, tenderness. Vital Signs: 16:36 BP 118 / 81; Pulse 101; Resp 17; Temp 98.6; Pulse Ox 99% ; Weight 65.77 kg; Height 5 jl7 ft. 0 in. (152.40 cm); Pain 10/10; 17:56 BP 126 / 82; Pulse 96; Resp 18; Pulse Ox 99% on R/A; Pain 6/10; ld1 16:36 Body Mass Index 28.32 (65.77 kg, 152.40 cm) jl7 MDM: 16:53 Patient medically screened. ms3 21:33 Differential diagnosis: abrasion, closed head injury, contusion, fracture, multiple ms3 trauma, sprain, strain. Data reviewed: vital signs, nurses notes, lab test result(s), radiologic studies, CT scan, plain films. Counseling: I had a detailed discussion with the patient and/or guardian regarding: the historical points, exam findings, and any diagnostic results supporting the discharge/admit diagnosis, lab results, radiology results, the need for outpatient follow up, to return to the emergency department if symptoms worsen or persist or if there are any questions or concerns that arise at home. ED course: Discussed labs, CT scans, x-rays, and PE findings with patient. Patient to follow up with PMD as discussd. Patient understands/ agrees with plan. All questions answered. Return precautions given to include worsening symptoms, or any other concerns. Patient is improved, in NAD, non-toxic appearing, ambulatory in ED, speaking full sentences.. 08/29 16:56 Order name: Basic Metabolic Panel ms3 08/29 16:56 Order name: CBC with Diff; Complete Time: 18:09 ms3 08/29 16:56 Order name: Type And Screen ms3 08/29 16:56 Order name: CT Head C Spine; Complete Time: 18:09 ms3 08/29 17:57 Order name: Urine Dipstick-Ancillary; Complete Time: 18:09 EDMS 08/29 18:15 Order name: Urine --Ancillary (enter results) bd 08/29 16:56 Order name: XRAY Chest (1 view); Complete Time: 18:09 ms3 08/29 16:56 Order name: Labs collected and sent; Complete Time: 17:45 ms3 08/29 16:56 Order name: Ribs Left XRAY; Complete Time: 18:09 ms3 08/29 17:18 Order name: Lumbar Spine (3 Views) XRAY; Complete Time: 18:09 ms3 08/29 17:18 Order name: Pelvis XRAY; Complete Time: 18:09 ms3 08/29 17:18 Order name: Urine Test (obtain specimen); Complete Time: 17:56 ms3 Administered Medications: 17:56 Drug: HYDROcodone-acetaminophen 5 mg-325 mg 1 tabs Route: PO; ld1 Disposition Summary: 08/29/21 18:14 Discharge Ordered Location: Home ms3 Condition: Stable ms3 Diagnosis - Fall on same level, unspecified ms3 - Acute post-traumatic headache ms3 - Pain in left shoulder ms3 - Pain in left hip ms3 - UTI/ Urinary tract infection, site not specified ms3 Followup: ms3 - With: Gelacio Santiago MD - When: 2 - 3 days - Reason: Recheck today's complaints Discharge Instructions: - Discharge Summary Sheet ms3 - Musculoskeletal Pain ms3 - Urinary Tract Infection, Adult ms3 Forms: - Medication Reconciliation Form ms3 - Thank You Letter ms3 - Antibiotic Education ms3 - Prescription Opioid Use ms3 Prescriptions: - Cephalexin 500 mg Oral Capsule - take 1 capsule by ORAL route every 12 hours for 7 days; 14 capsule; Refills: 0, ms3 Product Selection Permitted Signatures: Dispatcher [employer] EDMS Yuki Roberson RN RN jl7 Natanael Ramirez DO DO ms3 Ruchi Crocker RN RN ld1 Corrections: (The following items were deleted from the chart) 17:37 16:56 Shoulder Left 2 View+RAD.[email or web address].[email or web address] ordered. EDMS EDMS
--- NOTE | 2021-08-29 18:14 | ER ---
Nurse's Notes [facility] Name: Jeffrey Diaz Age: 40 yrs Sex: Female : 1980 Arrival Date: 08/29/2021 Time: 16:30 Bed 10 Private MD: Diagnosis: Fall on same level, unspecified;Acute post-traumatic headache;Pain in left shoulder;Pain in left hip;UTI/ Urinary tract infection, site not specified Presentation: 08/29 16:36 Chief complaint: Patient states: Pt fell on top of me and I hit my head/left eye on the jl7 wall and my back on the wall. Reports PETERS and back pain. Coronavirus screen: At this time, the client does not indicate any symptoms associated with coronavirus-19. Ebola Screen: No symptoms or risks identified at this time. Initial Sepsis Screen: Does the patient meet any 2 criteria? No. Patient's initial sepsis screen is negative. Does the patient have a suspected source of infection? No. Patient's initial sepsis screen is negative. Risk Assessment: Do you want to hurt yourself or someone else? Patient reports no desire to harm self or others. Onset of symptoms was August 29, 2021 at 16:00. 16:36 Method Of Arrival: Ambulatory [facility] 16:36 Acuity: NADER 4 jl7 Triage Assessment: 16:38 General: Appears in no apparent distress. uncomfortable, Behavior is calm, cooperative. jl7 Pain: Complains of pain in left eye and back Pain currently is 20 out of 10 on a pain scale. 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 - Social history:: Smoking status: Patient reports the use of cigarette tobacco products. Screenin:56 Abuse screen: Denies threats or abuse. Denies injuries from another. Nutritional ld1 screening: No deficits noted. Tuberculosis screening: No symptoms or risk factors identified. Fall Risk None identified. Assessment: 17:56 General: Appears in no apparent distress. comfortable, Behavior is calm, cooperative, ld1 appropriate for age. Pain: Complains of pain in back Pain does not radiate. Pain at worst was 8 out of 10 on a pain scale. Neuro: Level of Consciousness is awake, alert, obeys commands, Oriented to person, place, time, situation. Cardiovascular: Capillary refill < 3 seconds Patient's skin is warm and dry. Respiratory: Airway is patent Respiratory effort is even, unlabored. GI: Abdomen is flat, non-distended. : No signs and/or symptoms were reported regarding the genitourinary system. EENT: No signs and/or symptoms were reported regarding the EENT system. Derm: No signs and/or symptoms reported regarding the dermatologic system. Musculoskeletal: No signs and/or symptoms reported regarding the musculoskeletal system. Vital Signs: 16:36 BP 118 / 81; Pulse 101; Resp 17; Temp 98.6; Pulse Ox 99% ; Weight 65.77 kg; Height 5 jl7 ft. 0 in. (152.40 cm); Pain 10/10; 17:56 BP 126 / 82; Pulse 96; Resp 18; Pulse Ox 99% on R/A; Pain 6/10; ld1 16:36 Body Mass Index 28.32 (65.77 kg, 152.40 cm) jl7 ED Course: 16:30 Patient arrived in ED. mr 16:38 Triage completed. jl7 16:38 Arm band placed on right wrist. jl7 16:39 Natanael Ramirez DO is Attending Physician. ms3 17:01 Ruchi Crocker, RN is Primary Nurse. ld1 17:08 CT Head C Spine In Process Unspecified. EDMS 17:38 XRAY Chest (1 view) In Process Unspecified. EDMS 17:38 Ribs Left XRAY In Process Unspecified. EDMS 17:38 Lumbar Spine (3 Views) XRAY In Process Unspecified. EDMS 17:38 Pelvis XRAY In Process Unspecified. EDMS 17:56 Patient has correct armband on for positive identification. Placed in gown. Bed in low ld1 position. Call light in reach. Side rails up X2. bike technician on. Pulse ox on. NIBP on. Door closed. Noise minimized. Warm blanket given. 17:56 No provider procedures requiring assistance completed. Inserted saline lock: 20 gauge ld1 in right antecubital area, using aseptic technique. Blood collected. 18:12 Gelacio Santiago MD is Referral Physician. ms3 18:22 IV discontinued, intact, bleeding controlled, No redness/swelling at site. ld1 Administered Medications: 17:56 Drug: HYDROcodone-acetaminophen 5 mg-325 mg 1 tabs Route: PO; ld1 Medication: 17:56 VIS not applicable for this client. ld1 Outcome: 18:14 Discharge ordered by . ms3 18:22 Discharged to home ambulatory, with family, with friend. ld1 18:22 Condition: stable 18:22 Discharge instructions given to patient, family, Instructed on discharge instructions, follow up and referral plans. medication usage, Demonstrated understanding of instructions, follow-up care, medications, Prescriptions given X 1. 18:23 Patient left the ED. ld1 Signatures: Dispatcher [employer] EDPR Divya Avalos Jahala RN RN jl7 Natanael Ramirez DO DO ms3 Ruchi Crocker RN RN ld1
[2021-08-29 20:54] VITALS: TEMP 98.6; O2SAT 99
[2021-08-29 20:55] VITALS: BP 126/82
== END 2021-08-29 18:23 | disposition home or self-care (01) ==
LOC: ER 16:27
DX: G44.319 Acute post-traumatic headache, not intractable (principal); M25.512 Pain in left shoulder; M25.552 Pain in left hip; N39.0 Urinary tract infection, site not specified; W18.30XA Fall on same level, unspecified, initial encounter; Z72.0 Tobacco use; F43.10 Post-traumatic stress disorder, unspecified; Z91.048 Other nonmedicinal substance allergy status
CPT/HCPCS: 36415; 70450; 71045; 72100; 72125; 72170; 80048; 81003; 81025; 85025; 86850; 86900; 86901

== ENCOUNTER 2023-08-15 17:34 | Inpatient (IN) | payer BC, OTHER, SELFPAY ==
[2023-08-15] MEDS ORDERED: MORPHINE 4 MG/ML SYR ONE ×2 (18:28→20:00)
[2023-08-15] MEDS ORDERED: DIPHENHYDRAMINE 50 MG/ML VIAL ONE ×3 (18:28→23:12)
[2023-08-15] MEDS ORDERED: METOCLOPRAMIDE 10 MG/2mL INJ ONE (18:28)
[2023-08-15] MEDS ORDERED: NA CHLORIDE 0.9% 1,000 ML ONE ×3 (18:28→20:44)
[2023-08-15] MEDS ORDERED: KETOROLAC 30 MG/ML INJ ONE (18:28)
--- NOTE | 2023-08-15 19:18 | RAD REPORT ---
EXAM DESCRIPTION: CT - Head Brain Wo Cont - 08/15/2023 6:45 pm CLINICAL HISTORY: Headache COMPARISON: 2021 TECHNIQUE: Computed axial tomography of the head was obtained. IV contrast was not requested. All CT scans are performed using dose optimization technique as appropriate and may include automated exposure control or mA/KV adjustment according to patient size. FINDINGS: An intracranial bleed is not seen The ventricles are normal in caliber No extra-axial fluid collection is noted. Borderline atrophy cerebellar vermis without significant change Fluid within the sinuses/ mastoids is not seen. IMPRESSION: No acute intracranial abnormality is seen If patient's symptoms persist MRI of the brain would be recommended
--- NOTE | 2023-08-15 19:22 | RAD REPORT ---
EXAM DESCRIPTION: Bhupinder Single View08/15/2023 6:24 pm CLINICAL HISTORY: Chest pain COMPARISON: 2021 FINDINGS: The lungs appear clear of acute infiltrate. The heart is normal size IMPRESSION: No acute abnormalities displayed
--- NOTE | 2023-08-15 19:22 | RAD REPORT ---
EXAM DESCRIPTION: CT - Abdomen Pelvis Wo Contrast - 08/15/2023 6:46 pm CLINICAL HISTORY: Abdominal pain COMPARISON: 2019 TECHNIQUE: Computed axial tomography of the abdomen and pelvis was obtained. IV and oral contrast we re not requested. All CT scans are performed using dose optimization technique as appropriate and may include automated exposure control or mA/KV adjustment according to patient size. FINDINGS: The evaluation of solid organs, vessels and bowel is limited secondary to the lack of con trast administration. The liver, spleen, pancreas, adrenals and kidneys appear grossly normal. The appendix is normal. There is no evidence of diverticulitis. Hysterectomy. No adnexal masses Moderate amount stool the colon IMPRESSION: Moderate amount of stool within the colon
[2023-08-15 19:26] LABS: Absolute Basophils 0.1 K/uL (0-0.5); Absolute Eosinophils 0.1 K/uL (0-0.5); Absolute Lymphocytes (CBC) 3.7 K/uL (0.7-4.9); Absolute Monocytes 0.6 K/uL (0.1-1.3); Absolute Neutrophil 4.7 K/uL (1.8-8.0); Basophils % 1.2 % (0-1.3); Eosinophils % 1.3 % (0-4.4); Hemoglobin 13.7 g/dL (12.0-15.0); Lymphocytes % 40.2 % (15.3-44.8); MCH 29.8 pg (27.0-35.0); MCHC 33.5 g/dL (32.0-36.0); MCV 88.9 fL (80-100); MPV 8.4 fL (7.6-11.3); Monocytes % 6.1 % (3.3-12.3); Neutrophils % 51.2 % (41.7-73.7); Nucleated Red Blood Cells % 0.3 % (0-0); Platelets 288 thou/uL (152-406); RBC Red Blood Cell Count 4.61 M/uL (3.86-4.86); Red Cell Distribution Width 12.5 % (12.1-15.2)
[2023-08-15 19:32] LABS: Specific Gravity > 1.030 (1.005-1.030); Urine Bilirubin NEGATIVE (Negative); Urine Blood Negative (Negative); Urine Clarity Clear (Clear); Urine Color Colorless (Yellow); Urine Glucose 4+ (Over) (Negative); Urine Ketones NEGATIVE (Negative); Urine Microscopic Reflex YN NO UMIC; Urine Nitrite NEGATIVE (Negative); Urine Protein NEGATIVE (Negative); Urine Urobilinogen Normal (Normal); Urine pH 6.5 (5.0-7.0)
[2023-08-15 19:40] LABS: Percent Reticulocyte Count 1.26 % (0.4-2.05)
[2023-08-15 19:50] LABS: ALT/SGPT 17 U/L (13-56); Albumin 3.7 g/dL (3.4-5.0); Albumin/Globulin Ratio 0.9 (1.1-1.8); Alkaline Phosphatase 130 U/L (45-117); Anion Gap 11.3 mEq/L (5.0-15.0); BUN Blood Urea Nitrogen 14 mg/dL (7-18); Bicarbonate 24 mEq/L (21-32); Bilirubin Total 0.3 mg/dL (0.2-1.0); Globulin 3.9 g/dL (2.3-3.5); Glomerular Filtration Rate 43 ml/min (=/>90); Lipase 123 U/L (13-75); Protein, Total 7.6 g/dL (6.4-8.2); Sodium Level 134 mEq/L (136-145)
[2023-08-15 19:55] LABS: AST/SGOT 6 U/L (15-37); Magnesium 2.1 mg/dL (1.6-2.4); Potassium 4.3 mEq/L (3.5-5.1); Troponin High Sensitivity < 3.0 pg/mL (<58.9)
[2023-08-15 20:07] LABS: Glucose Level 421 mg/dL (74-106)
[2023-08-15] MEDS ORDERED: ASPIRIN 81 MG CHEWABLE TABLET ONE (20:41)
[2023-08-15] MEDS ORDERED: INSULIN GLARGINE 100 UNIT/ML SQ ONE (20:43)
[2023-08-15] MEDS ORDERED: INSULIN REGULAR (HUMAN) 100 UNIT/ML ONE (20:43)
[2023-08-15] MEDS ORDERED: FAMOTIDINE 20 MG/2 ML VIAL IV ONE ×2 (20:43→23:13)
--- NOTE | 2023-08-15 20:47 | EDPHYS ---
Physician Documentation [facility] Name: Jeffrey Diaz Age: 42 yrs Sex: Female : 1980 Arrival Date: 08/15/2023 Time: 17:34 Bed 16 Private MD: ED Physician Teto Cardenas HPI: 08/14 18:42 This 42 yrs old Black Female presents to ER via Wheelchair with complaints of Chest rt Pain, Headache. 18:42 Patient presents to the ED with epigastric lower chest pain starting yesterday. She has rt nausea, vomiting, headache. States the pain is worsened today. Denies other acute complaints at this time, symptoms are moderate in severity, no other aggravating relieving factors.. Historical: - Allergies: 17:56 Iodine; aa5 - PMHx: 17:56 Anxiety; Migraines; PTSD; aa5 - PSHx: 17:56 Total abdominal hysterectomy; aa5 - Immunization history:: Adult Immunizations up to date. - Infectious Disease History:: Denies. - Social history:: Smoking status: Patient reports the use of cigarette tobacco products. - Family history:: not pertinent. ROS: 18:42 Constitutional: Negative for fever, chills, and weight loss, Respiratory: Negative for rt shortness of breath, cough, wheezing, and pleuritic chest pain, MS/Extremity: Negative for injury and deformity, Skin: Negative for injury, rash, and discoloration, 18:42 Cardiovascular: Positive for chest pain, Negative for edema, 18:42 Abdomen/GI: Positive for abdominal pain, nausea and vomiting, 18:42 Neuro: Positive for headache, Negative for altered mental status, Exam: 18:42 Constitutional: This is a well developed, well nourished patient who is awake, alert, rt and in no acute distress. Head/Face: Normocephalic, atraumatic. Chest/axilla: Normal chest wall appearance and motion. Nontender with no deformity. No lesions are appreciated. Cardiovascular: Regular rate and rhythm with a normal S1 and S2. No gallops, murmurs, or rubs. Normal PMI, no JVD. No pulse deficits. Respiratory: Lungs have equal breath sounds bilaterally, clear to auscultation and percussion. No rales, rhonchi or wheezes noted. No increased work of breathing, no retractions or nasal flaring. Skin: Warm, dry with normal turgor. Normal color with no rashes, no lesions, and no evidence of cellulitis. MS/ Extremity: Pulses equal, no cyanosis. Neurovascular intact. Full, normal range of motion. Neuro: Awake and alert, GCS 15, oriented to person, place, time, and situation. Cranial nerves II-XII grossly intact. Motor strength 5/5 in all extremities. Sensory grossly intact. Cerebellar exam normal. Normal gait. Psych: Awake, alert, with orientation to person, place and time. Behavior, mood, and affect are within normal limits. 18:42 ECG was reviewed by the Attending Physician. 18:42 Abdomen/GI: Tenderness to the epigastrium with moderate guarding, no rebound, distention, Vital Signs: 17:55 BP 116 / 59; Pulse 105; Resp 18 S; Temp 97.7(TE); Pulse Ox 95% on R/A; Weight 61.69 kg aa5 (R); Height 5 ft. 5 in. (R); 19:30 BP 128 / 90; Pulse 80; Resp 16; Pulse Ox 98% on R/A; Pain 9/10; pf1 20:23 BP 111 / 78; Pulse 84; Resp 16; Pulse Ox 100% on R/A; pf1 21:30 BP 119 / 77; Pulse 79; Resp 16; Pulse Ox 100% on R/A; Pain 5/10; pf1 22:30 BP 108 / 69; Pulse 71; Resp 16; Pulse Ox 100% on R/A; pf1 23:30 BP 106 / 74; Pulse 78; Resp 19; Pulse Ox 100% on R/A; pf1 08/15 00:30 BP 113 / 77; Pulse 75; Resp 16; Temp 97.9; Pulse Ox 100% on R/A; pf1 08/14 17:55 Body Mass Index 22.63 (61.69 kg, 165.1 cm) aa5 19:30 Pain Scale: Adult pf1 21:30 Pain Scale: Adult pf1 MDM: 08/14 18:02 Patient medically screened. rt 20:41 Differential diagnosis: abnormal EKG, acute myocardial infarction, acute pericarditis, bennett cholecystitis, Cholelithiasis costochondritis, esophagitis, gastritis, hiatal hernia, pancreatitis, peptic ulcer disease, stable angina, unstable angina. HEART Score: History: Slightly Suspicious (0), ECG: Normal (0), Age: < or = 45 years (0), Risk Factors: No Risk Factors Known (0), Troponin: < or = 1 x Normal Limit (0). The patient was given aspirin in the Emergency Department. NOEMY Risk Score: TOTAL SCORE = 0. Data reviewed: vital signs, nurses notes, lab test result(s), EKG, radiologic studies, CT scan, plain films. Consideration of Admission/Observation Escalation of care including admission/observation considered. I considered the following discharge prescriptions or medication management in the emergency department Medications were administered in the Emergency Department. See MAR. Independent interpretation of the following test(s) in the Emergency Department EKG: See my EKG interpretation above. 08/14 18:13 Order name: CBC with Diff; Complete Time: 19:50 rt 08/14 18:13 Order name: CMP; Complete Time: 20:26 rt 08/14 18:13 Order name: Lipase; Complete Time: 20: rt 08/14 18:13 Order name: Urinalysis w/ reflexes; Complete Time: 19:50 rt 08/14 18:13 Order name: Magnesium; Complete Time: 20:26 rt 08/14 18:13 Order name: Troponin HS; Complete Time: 20:26 rt 08/14 18:13 Order name: Retic Count; Complete Time: 19:50 rt 08/14 21:06 Order name: Glucose, Ancillary Testing; Complete Time: 23:16 EDMS 08/14 21:56 Order name: Hemoglobin A1c; Complete Time: 23:16 EDMS 08/14 21:56 Order name: CBC with Automated Diff EDUT 08/14 21:56 Order name: CBC with Automated Diff EDMS 08/14 21:56 Order name: Comprehensive Metabolic Panel EDMS 08/14 21:56 Order name: Comprehensive Metabolic Panel EDMS 08/14 21:56 Order name: Lipase EDMS 08/14 21:56 Order name: Lipase EDMS 08/14 18:13 Order name: CT Abd/Pelvis - Without Contrast; Complete Time: 19:23 rt 08/14 18:13 Order name: XRAY Chest (1 view); Complete Time: 19:23 rt 08/14 18:38 Order name: Head Brain Wo Cont; Complete Time: 19:23 EDMS 08/14 21:50 Order name: Abdomen EDUT 08/14 18:13 Order name: IV Saline Lock; Complete Time: 19:08 rt 08/14 18:13 Order name: Labs collected and sent; Complete Time: 19: rt 08/14 18:13 Order name: Cardiac monitoring; Complete Time: 18:21 rt 08/14 18:13 Order name: EKG - Nurse/Tech; Complete Time: 18:21 rt 08/14 18:13 Order name: O2 Per Protocol; Complete Time: 18:21 rt 08/14 18:13 Order name: O2 Sat Monitoring; Complete Time: 18:21 rt EC:42 Rate is 94 beats/min. Rhythm is regular, Normal Sinus Rhythm with No ectopy. QRS [place] rt is Normal. AR interval is normal. QRS interval is normal. QT interval is normal. No Q waves. T waves are Normal. No ST changes noted. Interpreted by me. Administered Medications: 19:09 Drug: NS 0.9% IV 1000 ml IV at 1 bolus Per protocol; 1000 mL bolus Route: IV; Rate: 1 kc6 bolus; Site: left forearm; 20:07 Follow up: Response: No adverse reaction; Marked relief of symptoms; IV Status: pf1 Completed infusion; IV Intake: 1000ml 19:09 Drug: TORadol - Ketorolac IVP 15 mg IVP once Route: IVP; Site: left forearm; [facility] 20:07 Follow up: Response: No adverse reaction; Marked relief of symptoms; Pain is decreased pf1 19:09 Drug: morphine IVP or IV 4 mg IVP once over 4 mins Route: IVP; Infused Over: 4 mins; [facility] Site: left forearm; 20:08 Follow up: Response: No adverse reaction; Marked relief of symptoms; Pain is decreased; pf1 RASS: Alert and Calm (0) 19:09 Drug: metoCLOPramide IVP 10 mg IVP once; over 1 to 2 minutes Route: IVP; Site: left kc6 forearm; 20:07 Follow up: Response: No adverse reaction; Marked relief of symptoms; Pain is decreased pf1 19:09 Drug: diphenhydrAMINE IVP 25 mg IVP once Route: IVP; Site: left forearm; [facility] 20:07 Follow up: Response: No adverse reaction; Marked relief of symptoms; Pain is decreased pf1 20:06 Drug: morphine IVP or IV 4 mg IVP once over 4 mins Route: IVP; Infused Over: 4 mins; pf1 Site: left forearm; 20:35 Follow up: Response: No adverse reaction; Marked relief of symptoms pf1 20:06 Drug: NS 0.9% IV 1000 ml IV at 1 bolus Per protocol; 1000 mL bolus Route: IV; Rate: 1 pf1 bolus; Site: left forearm; 21:15 Follow up: Response: No adverse reaction; Marked relief of symptoms; IV Status: pf1 Completed infusion; IV Intake: 1000ml 20:58 Drug: Insulin Glargine Sub-Q 30 units Sub-Q once {Co-Signature: cp4 (Liliya, pf1 Juana).} Route: Sub-Q; Site: left upper arm; 21:50 Follow up: Response: No adverse reaction; Marked relief of symptoms pf1 21:02 CANCELLED (Physician Discretion): ns 0.9% 1000 ml IV at 1 bolus Per protocol; 1000 mL pf1 bolus 21:02 Drug: Famotidine IVP 20 mg IVP once; dilute with 10 mL 0.9% NaCl; give over 2 minutes pf1 Route: IVP; Site: left forearm; 22:00 Follow up: Response: No adverse reaction; Marked relief of symptoms pf1 21:02 CANCELLED (Physician Discretion): insulin regular human10 units IVP once pf1 21:03 Drug: NS 0.9% IV 1000 ml IV at 125 ml/hr continuous Route: IV; Rate: 125 ml/hr; Site: pf1 left forearm; 08/15 00:50 Follow up: Response: No adverse reaction; Marked relief of symptoms; IV Status: pf1 Completed infusion; IV Intake: 500ml 08/14 21:15 CANCELLED (Physician Discretion; admit doctorr): aspirinchewable tablet 162 mg PO once pf1 23:20 Drug: Famotidine IVP 20 mg IVP once; dilute with 10 mL 0.9% NaCl; give over 2 minutes pf1 Route: IVP; Site: left forearm; 08/15 00:20 Follow up: Response: No adverse reaction; Marked relief of symptoms pf1 08/14 23:20 Drug: diphenhydrAMINE IVP 25 mg IVP once Route: IVP; Site: left forearm; pf1 08/15 00:20 Follow up: Response: No adverse reaction; Marked relief of symptoms pf1 08/14 23:20 Drug: Decadron - Dexamethasone IVP 10 mg IVP once Route: IVP; Site: left forearm; pf1 08/15 00:20 Follow up: Response: No adverse reaction; Marked relief of symptoms pf1 08/14 23:35 Drug: Levalbuterol Inhalation 1.25 mg Inhalation once Route: Inhalation; pf1 08/15 00:30 Follow up: Response: No adverse reaction; Marked relief of symptoms pf1 00:15 CANCELLED (Duplicate Order): morphineor iv 4 mg IVP once over 4 mins pf1 Disposition Summary: 08/15/23 20:47 Hospitalization Ordered Notes: Hospitalization Status: Observation bennett Provider: Leonel Muro cha Location: Telemetry/MedSurg (observation) bennett Condition: Stable bennett Problem: new bennett Symptoms: have improved bennett Bed/Room Type: Standard bennett Room Assignment: 221(08/15/23 22:28) cg Diagnosis - Epigastric abdominal tenderness bennett - Vomiting bennett - Nausea with vomiting, unspecified bennett - Type 2 diabetes mellitus with hyperglycemia - new onset bennett - Unspecified kidney failure - insufficency bennett Forms: - Medication Reconciliation Form bennett - SBAR form bennett - Leadership Thank You Letter bennett Signatures: Dispatcher [employer] EDTeto Qureshi MD MD cha Calderon, Audri, RN RN aa5 Jeannie Gan RN RN cg Jeny Bishop RN RN [id number] Chip Clement MD MD rt Finley, Pamala, RN RN pf1 Juana Lovell cp4 Corrections: (The following items were deleted from the chart) 08/14 18:14 18:14 CBC+H.LAB.BRZ ordered. EDMS EDMS 18:14 18:14 COMPREHENSIVE METABOLIC PANEL+C.LAB.BRZ ordered. EDMS EDMS 18:14 18:14 LIPASE+C.LAB.BRZ ordered. EDMS EDMS 18:14 18:14 Urinalysis+U.LAB.BRZ ordered. EDMS EDMS 18:14 18:14 MAGNESIUM+C.LAB.BRZ ordered. EDMS EDMS 18:14 18:14 Troponin High Sensitivity+C.LAB.BRZ ordered. EDMS EDMS 18:14 18:14 RETIC COUNT+H.LAB.BRZ ordered. EDMS EDMS 18: 18:14 Abdomen Pelvis Wo Con+CT.RAD.BRZ ordered. EDMS EDMS 18: 18:14 Chest Single View+RAD.RAD.BRZ ordered. EDMS EDMS 21: 20:27 NS 0.9% IV 1000 ml IV at 1 bolus Per protocol; 1000 mL bolus ordered. bennett pf1 21: 20:32 Insulin Regular Human IVP 10 units IVP once ordered. bennett pf1 : 21: Insulin Regular Human IVP 10 units IVP once ordered. pf1 pf1 21: 21:02 NS 0.9% IV 1000 ml IV at 1 bolus Per protocol; 1000 mL bolus ordered. pf1 pf1 : 20:27 Aspirin PO Chewable Tablet 162 mg PO once ordered. bennett pf1 : 21:04 Aspirin PO Chewable Tablet 162 mg PO once given. pf1 pf1 : 21:14 Aspirin PO Chewable Tablet 162 mg PO once ordered. pf1 pf1 22:28 20:47 bennett cg 08/15 00:15 08/14 20:39 morphine IVP or IV 4 mg IVP once over 4 mins ordered. bennett pf1 08/15 00:15 00:15 morphine IVP or IV 4 mg IVP once over 4 mins ordered. pf1 pf1
--- NOTE | 2023-08-15 20:47 | ER ---
Nurse's Notes [facility] Name: Jeffrey Diaz Age: 42 yrs Sex: Female : 1980 Arrival Date: 08/15/2023 Time: 17:34 Bed 16 Private MD: Diagnosis: Epigastric abdominal tenderness;Vomiting;Nausea with vomiting, unspecified;Type 2 diabetes mellitus with hyperglycemia-new onset;Unspecified kidney failure-insufficency Presentation: 08/14 17:55 Chief complaint: Patient states: chest pain and headache that began 3 days ago. aa5 Coronavirus screen: headache. Ebola Screen: Patient denies travel to an Ebola-affected area in the 21 days before illness onset. Initial Sepsis Screen: Does the patient meet any 2 criteria? No. Patient's initial sepsis screen is negative. Does the patient have a suspected source of infection? No. Patient's initial sepsis screen is negative. Risk Assessment: Do you want to hurt yourself or someone else? Patient reports no desire to harm self or others. Onset of symptoms was July 2023. 17:55 Method Of Arrival: Wheelchair aa5 17:55 Acuity: NADER 3 aa5 Historical: - Allergies: 17:56 Iodine; aa5 - PMHx: 17:56 Anxiety; Migraines; PTSD; aa5 - PSHx: 17:56 Total abdominal hysterectomy; aa5 - Immunization history:: Adult Immunizations up to date. - Infectious Disease History:: Denies. - Social history:: Smoking status: Patient reports the use of cigarette tobacco products. - Family history:: not pertinent. Screenin:12 [facility] ED Fall Risk Assessment (Adult) History of falling in the last 3 months, kc6 including since admission No falls in past 3 months (0 pts) Confusion or Disorientation No (0 pts) Intoxicated or Sedated No (0 pts) Impaired Gait No (0 pts) Mobility Assist Device Used No (0 pt) Altered Elimination No (0 pt) Score/Fall Risk Level 0 - 2 = Low Risk. Abuse screen: Denies threats or abuse. Denies injuries from another. Nutritional screening: No deficits noted. Tuberculosis screening: No symptoms or risk factors identified. Assessment: 19:12 General: Appears in no apparent distress. uncomfortable, well groomed, well developed, kc6 Behavior is calm, cooperative, appropriate for age. Pain: Complains of pain in chest Pain does not radiate. Pain began 2-3 days ago. Neuro: Level of Consciousness is awake, alert, obeys commands, Oriented to person, place, time, situation, Appropriate for age Reports blurred vision headache photophobia. Cardiovascular: Reports chest pain, Heart tones S1 S2 present Capillary refill < 3 seconds. Respiratory: Airway is patent Trachea midline Respiratory effort is even, unlabored, Respiratory pattern is regular, symmetrical. GI: No signs and/or symptoms were reported involving the gastrointestinal system. : No signs and/or symptoms were reported regarding the genitourinary system. Urine is clear. EENT: No signs and/or symptoms were reported regarding the EENT system. Derm: No signs and/or symptoms reported regarding the dermatologic system. Skin is intact, is healthy with good turgor, Skin is pink, warm \T\ dry. Musculoskeletal: No signs and/or symptoms reported regarding the musculoskeletal system. Circulation, motion, and sensation intact. Capillary refill < 3 seconds, Range of motion: intact in all extremities. 19:15 General: Appears in no apparent distress. uncomfortable, well groomed, well developed, pf1 Behavior is calm, cooperative, appropriate for age, quiet. 19:15 Pain: Complains of pain in abdomen, back, chest, head Pain currently is 9 out of 10 on pf1 a pain scale. Pain began 2-3 days ago. Neuro: Level of Consciousness is awake, alert, obeys commands, Oriented to person, place, time, situation, Reports blurred vision headache photophobia. Cardiovascular: Reports chest pain, Capillary refill < 3 seconds Patient's skin is warm and dry. Respiratory: No deficits noted. Airway is patent Respiratory effort is even, unlabored, Respiratory pattern is regular, symmetrical. GI: Reports upper abdominal pain. : No deficits noted. No signs and/or symptoms were reported regarding the genitourinary system. EENT: No deficits noted. No signs and/or symptoms were reported regarding the EENT system. Derm: No deficits noted. No signs and/or symptoms reported regarding the dermatologic system. Musculoskeletal: Reports pain in back and chest. 20:23 Reassessment: Patient appears in no apparent distress at this time. Patient and/or pf1 family updated on plan of care and expected duration. Pain level reassessed. Patient is alert, oriented x 3, equal unlabored respirations, skin warm/dry/pink. 21:04 Reassessment: Patient appears in no apparent distress at this time. Patient and/or pf1 family updated on plan of care and expected duration. Pain level reassessed. Patient is alert, oriented x 3, equal unlabored respirations, skin warm/dry/pink. Patient states symptoms have improved. 22:30 Reassessment: Patient delayed with admission due to catscan ordered by admit Dr sara gatica in ER, to be per medicated for catscan then to wait 30 minutes to go to [facility]. 23:30 Reassessment: Patient and/or family updated on plan of care and expected duration. Pain pf1 level reassessed. Patient return from [facility] with having an allergic reaction symptoms of itchy throat, generalized body itching and SOB, notified Dr. Cardenas. 23:40 Reassessment: Notified Dr. Springer of patient's allergic reaction symptoms. pf1 08/15 00:38 Reassessment: Patient appears in no apparent distress at this time. Patient and/or pf1 family updated on plan of care and expected duration. Pain level reassessed. Patient is alert, oriented x 3, equal unlabored respirations, skin warm/dry/pink. Patient states symptoms have improved. Vital Signs: 08/14 17:55 BP 116 / 59; Pulse 105; Resp 18 S; Temp 97.7(TE); Pulse Ox 95% on R/A; Weight 61.69 kg aa5 (R); Height 5 ft. 5 in. (R); 19:30 BP 128 / 90; Pulse 80; Resp 16; Pulse Ox 98% on R/A; Pain 9/10; pf1 20:23 BP 111 / 78; Pulse 84; Resp 16; Pulse Ox 100% on R/A; pf1 21:30 BP 119 / 77; Pulse 79; Resp 16; Pulse Ox 100% on R/A; Pain 5/10; pf1 22:30 BP 108 / 69; Pulse 71; Resp 16; Pulse Ox 100% on R/A; pf1 23:30 BP 106 / 74; Pulse 78; Resp 19; Pulse Ox 100% on R/A; pf1 08/15 00:30 BP 113 / 77; Pulse 75; Resp 16; Temp 97.9; Pulse Ox 100% on R/A; pf1 08/14 17:55 Body Mass Index 22.63 (61.69 kg, 165.1 cm) aa5 19:30 Pain Scale: Adult pf1 21:30 Pain Scale: Adult pf1 ED Course: 08/14 17:38 Patient arrived in ED. mg5 17:42 Chip Clement MD is Attending Physician. rt 17:55 Arm band placed on. aa5 17:56 Triage completed. aa5 18:06 Jeny Bishop RN is Primary Nurse. kc6 18:20 EKG done, by ED staff. jg11 18:26 XRAY Chest (1 view) In Process Unspecified. EDMS 18:47 CT Abd/Pelvis - Without Contrast In Process Unspecified. EDMS 18:47 Head Brain Wo Cont In Process Unspecified. EDMS 19:00 O2 via room air. pf1 19:12 Patient has correct armband on for positive identification. Bed in low position. Call kc6 light in reach. Side rails up X 1. Adult w/ patient. Client placed on continuous cardiac and pulse oximetry monitoring. NIBP monitoring applied. Door closed. Noise minimized. Visitors limited. Lights dimmed. 19:12 Inserted saline lock: 22 gauge in left forearm, using aseptic technique. Blood kc6 collected. 19:13 Report given to Monica Beckwith RN. kc6 19:57 Notified ED physician of a critical lab result(s). Blood Glucose 421. cm10 20:07 Attending Physician role handed off by Chip Clement MD bennett 20:07 Teto Cardenas MD is Attending Physician. bennett 20:44 Leonel Muro is Hospitalizing Provider. bennett 23:16 Inserted saline lock: 18 gauge in right antecubital area, using aseptic technique. cm10 23:20 Primary Nurse role handed off by Jeny Bishop RN cm10 23:46 No provider procedures requiring assistance completed. pf1 08/15 00:00 Provided Education on: need for admit. pf1 00:50 Patient admitted, IV remains in place. pf1 Administered Medications: 08/14 19:09 Drug: NS 0.9% IV 1000 ml IV at 1 bolus Per protocol; 1000 mL bolus Route: IV; Rate: 1 kc6 bolus; Site: left forearm; 20:07 Follow up: Response: No adverse reaction; Marked relief of symptoms; IV Status: pf1 Completed infusion; IV Intake: 1000ml 19:09 Drug: TORadol - Ketorolac IVP 15 mg IVP once Route: IVP; Site: left forearm; kc6 20:07 Follow up: Response: No adverse reaction; Marked relief of symptoms; Pain is decreased pf1 19:09 Drug: morphine IVP or IV 4 mg IVP once over 4 mins Route: IVP; Infused Over: 4 mins; kc6 Site: left forearm; 20:08 Follow up: Response: No adverse reaction; Marked relief of symptoms; Pain is decreased; pf1 RASS: Alert and Calm (0) 19:09 Drug: metoCLOPramide IVP 10 mg IVP once; over 1 to 2 minutes Route: IVP; Site: left kc6 forearm; 20:07 Follow up: Response: No adverse reaction; Marked relief of symptoms; Pain is decreased pf1 19:09 Drug: diphenhydrAMINE IVP 25 mg IVP once Route: IVP; Site: left forearm; kc6 20:07 Follow up: Response: No adverse reaction; Marked relief of symptoms; Pain is decreased pf1 20:06 Drug: morphine IVP or IV 4 mg IVP once over 4 mins Route: IVP; Infused Over: 4 mins; pf1 Site: left forearm; 20:35 Follow up: Response: No adverse reaction; Marked relief of symptoms pf1 20:06 Drug: NS 0.9% IV 1000 ml IV at 1 bolus Per protocol; 1000 mL bolus Route: IV; Rate: 1 pf1 bolus; Site: left forearm; 21:15 Follow up: Response: No adverse reaction; Marked relief of symptoms; IV Status: pf1 Completed infusion; IV Intake: 1000ml 20:58 Drug: Insulin Glargine Sub-Q 30 units Sub-Q once {Co-Signature: cp4 Tisha, pfRaj Lorenzana.} Route: Sub-Q; Site: left upper arm; 21:50 Follow up: Response: No adverse reaction; Marked relief of symptoms pf1 21:02 CANCELLED (Physician Discretion): ns 0.9% 1000 ml IV at 1 bolus Per protocol; 1000 mL pf1 bolus 21:02 Drug: Famotidine IVP 20 mg IVP once; dilute with 10 mL 0.9% NaCl; give over 2 minutes pf1 Route: IVP; Site: left forearm; 22:00 Follow up: Response: No adverse reaction; Marked relief of symptoms pf1 21:02 CANCELLED (Physician Discretion): insulin regular human10 units IVP once pf1 21:03 Drug: NS 0.9% IV 1000 ml IV at 125 ml/hr continuous Route: IV; Rate: 125 ml/hr; Site: pf1 left forearm; 08/15 00:50 Follow up: Response: No adverse reaction; Marked relief of symptoms; IV Status: pf1 Completed infusion; IV Intake: 500ml 08/14 21:15 CANCELLED (Physician Discretion; admit doctorr): aspirinchewable tablet 162 mg PO once pf1 23:20 Drug: Famotidine IVP 20 mg IVP once; dilute with 10 mL 0.9% NaCl; give over 2 minutes pf1 Route: IVP; Site: left forearm; 08/15 00:20 Follow up: Response: No adverse reaction; Marked relief of symptoms pf1 08/14 23:20 Drug: diphenhydrAMINE IVP 25 mg IVP once Route: IVP; Site: left forearm; pf1 08/15 00:20 Follow up: Response: No adverse reaction; Marked relief of symptoms pf1 08/14 23:20 Drug: Decadron - Dexamethasone IVP 10 mg IVP once Route: IVP; Site: left forearm; pf1 08/15 00:20 Follow up: Response: No adverse reaction; Marked relief of symptoms pf1 08/14 23:35 Drug: Levalbuterol Inhalation 1.25 mg Inhalation once Route: Inhalation; pf1 08/15 00:30 Follow up: Response: No adverse reaction; Marked relief of symptoms pf1 00:15 CANCELLED (Duplicate Order): morphineor iv 4 mg IVP once over 4 mins pf1 Medication: 08/14 23:46 VIS not applicable for this client. pf1 Intake: 20:07 IV: 1000ml; Total: 1000ml. pf1 21:15 IV: 1000ml; Total: 2000ml. pf1 08/15 00:50 IV: 500ml; Total: 2500ml. pf1 Outcome: 08/14 20:47 Decision to Hospitalize by Provider. bennett 08/15 00:39 Admitted to Med/surg accompanied by tech, via wheelchair, room 221, Report called to pf1 report faxed Condition: improved Instructed on the need for admit, 00:50 Patient left the ED. pf1 Signatures: Dispatcher [employer] EDMS Teto Cardenas MD MD cha Calderon, Audri, RN RN aa5 Jeny Bishop RN RN kc6 Chip Clement MD MD rt Radha Beckwith RN RN pf1 Johanna Rey RN RN cm10 Cyndee Campbell mg5 Thong Shrestha jg11 Juana Lovell cp4 Corrections: (The following items were deleted from the chart) 08/14 21:14 21:00 Aspirin PO Chewable Tablet 162 mg PO pf1 pf1 08/15 06:20 08/14 22:00 Reassessment: Patient delayed with admission due to catscan ordered by pf1 evonne Pang while in ER, to be per medicated for catscan then to wait 30 minutes to go to catscan pf1 08/15 06:20 08/14 23:00 Reassessment: Patient appears in no apparent distress at this time. Patient pf1 and/or family updated on plan of care and expected duration. Pain level reassessed. Patient is alert, oriented x 3, equal unlabored respirations, skin warm/dry/pink. pf1
[2023-08-15] MEDS ORDERED: HYDRALAZINE HCL 20 MG/ML VIAL IV PRN (21:45)
[2023-08-15] MEDS: DIPHENHYDRAMINE 50 MG/ML VIAL IV ONE (21:47)
[2023-08-15] MEDS: Ringers Lactate 1,000 ML IV SCH (22:00)
--- NOTE | 2023-08-15 22:21 | P.HP ---
Certification for Inpatient Patient admitted to: Observation With expected LOS: <2 Midnights Patient will require the following post-hospital care: None Practitioner: I am a practitioner with admitting privileges, knowledge of patient current condition, hospital course, and medical plan of care. Services: Services provided to patient in accordance with Admission requirements found in Title 42 Section 412.3 of the Code of Federal Regulations Patient History Date of Service: 08/15/23 Reason for admission: Abdominal pain and vomiting History of Present Illness: 42-year-old female with past medical history of dysmenorrhea, PTSD status post hysterectomy, presented because of complaint of epigastric area pain onset since the last 3 days associated with abdominal bloating, vomiting x 3 episodes today nonbilious nonbloody, persistent nausea with anorexia. Patient admits she has been having worsening of the bloating since the last 2 days. She denies any constipation or diarrhea. She states epigastric pain initially started in the right mid quadrant then later migrated towards the epigastric area. She denies any chest pain despite previously noted on ER records. She denies any shortness of breath. She denies any fever or chills. She denies any dysuria. On arrival in the ED vital signs were stable, EKG shows normal sinus rhythm with no ST segment changes, troponin was negative, CT of the abdomen and pelvics shows stool in the bowel but no acute intra-abdominal pathology, lipase was noted elevated at 123, glucose was noted elevated at 417 with creatinine of 1.5. She states she has never been diagnosed with diabetes but does have a strong family history of diabetes in the mom and grandparents. Review of records shows she was actually started on metformin by Dr. Magallanes in 2019 during admission for dysmenorrhea requiring total abdominal hysterectomy at the time. She admits to history of a contrast allergy given her rash in the past Allergies iodine Allergy (Verified 11/01/19 13:21) Anaphylaxis Home Medications: Metformin HCl 1,000 mg PO BID 11/01/19 - Past Medical/Surgical History -: PTSD -: Denies history of diabetes but noted on metformin in the past -: Total abdominal hysterectomy - Family History Mother -: Diabetes - Social History Smoking Status: Current some day smoker Smoking therapy provided: No Alcohol use: No Place of Residence: Home Review of Systems 10-point ROS is otherwise unremarkable Cardiovascular: Orthopnea, Light Headedness Gastrointestinal: Nausea, Vomiting, Abdominal Pain, Distention Physical Examination - Physical Exam General: Alert, In no apparent distress, Oriented x3 HEENT: Atraumatic, Normocephalic, PERRLA Neck: Supple, 2+ carotid pulse no bruit, JVD not distended Respiratory: Clear to auscultation bilaterally, Normal air movement Cardiovascular: Normal pulses, Regular rate/rhythm, Normal S1 S2 Gastrointestinal: Normal bowel sounds, No ascites, Distended, Tenderness (intense with guarding ) Musculoskeletal: No clubbing, No swelling Integumentary: No breakdown, No significant lesion Neurological: Normal speech, Normal strength at 5/5 x4 extr, Normal tone - Studies Laboratory Data (last 24 hrs) 08/15/23 08/15/23 19:00 19:00 WBC 9.20 Hgb 13.7 Hct 41.0 Plt Count 288 Sodium 134 L Potassium 4.3 BUN 14 Creatinine 1.55 H Glucose 421 H* Magnesium 2.1 Total Bilirubin 0.3 AST 6 L ALT 17 Alkaline Phosphatase 130 H Lipase 123 H Assessment and Plan - Problems (Diagnosis) (1) Abdominal pain Current Visit: Yes Status: Acute - Plan Impression Right mid quadrant abdominal pain with elevated lipase Possible pancreatitis Elevated glucosemay be due to pancreatitis versus new onset diabetes mellitus History of iodine contrast allergy Plan Will admit patient to observation Will obtain repeat CT with contrast of the abdomen with contrast to further evaluate rule out pancreatitis Will premedicate with IV steroids/Benadryl given history of contrast allergy Obtain hemoglobin A1c Start gentle IV hydration Antiemetics as tolerated Pain control Insulin sliding scale with Accu-Cheks If actually elevated glucose and new diagnosis of diabetes are not due to pancreatitis will need diabetics teaching Subcutaneous Lovenox for DVT prophylaxis Discharge Plan: Home - Advance Directives Does patient have a Living Will: No Does patient have a Durable POA for Healthcare: No - Code Status/Comfort Care Code Status Assessed: Yes Code Status: Full Code Physician Review: Patient Assessed, Agree with Above Assessment and Plan Time Spent Managing Pts Care (In Minutes): 65
[2023-08-15] MEDS ORDERED: METHYLPREDNISOLONE 125 MG INJ ONE (22:36)
[2023-08-15] MEDS: METHYLPRED NA SUC 125 MG in NA CHLORIDE 0.9% 100 ML IV ONE (22:44)
[2023-08-15] MEDS: METHYLPREDNISOLONE 125 MG INJ IV ONE (22:47)
[2023-08-15] MEDS ORDERED: dexAMETHasone 10 MG/ML VIAL ONE (23:12)
[2023-08-15] MEDS ORDERED: EPINEPHRINE 1 MG/ML VIAL ONE (23:13)
[2023-08-15] MEDS ORDERED: LEVALBUTEROL 1.25 MG/3 ML NEB ONE (23:36)
[2023-08-16] MEDS: MORPHINE 2 MG/ML SYR IV PRN (01:26)
[2023-08-16 03:06] VITALS: BMI 26.5
[2023-08-16 03:11] LABS: Absolute Lymphocytes (CBC) 1.4 K/uL (0.7-4.9); Absolute Monocytes 0.2 K/uL (0.1-1.3); Absolute Neutrophil 11.1 K/uL (1.8-8.0); Basophils % 0.3 % (0-1.3); Eosinophils % 0.1 % (0-4.4); Hematocrit 39.2 % (36.0-45.0); Hemoglobin 12.7 g/dL (12.0-15.0); Lymphocytes % 10.9 % (15.3-44.8); MCH 29.4 pg (27.0-35.0); MCHC 32.5 g/dL (32.0-36.0); MCV 90.3 fL (80-100); Monocytes % 1.3 % (3.3-12.3); Neutrophils % 87.4 % (41.7-73.7); Platelets 283 thou/uL (152-406); RBC Red Blood Cell Count 4.34 M/uL (3.86-4.86); Red Cell Distribution Width 12.6 % (12.1-15.2)
[2023-08-16 03:24] LABS: Albumin 3.6 g/dL (3.4-5.0); Anion Gap -2.1 mEq/L (5.0-15.0); Bilirubin Total 0.2 mg/dL (0.2-1.0); Globulin 3.6 g/dL (2.3-3.5); Potassium 3.9 mEq/L (3.5-5.1); Protein, Total 7.2 g/dL (6.4-8.2)
[2023-08-16] MEDS ORDERED: ACETAMINOPHEN 325 MG TABLET PO PRN (03:45)
[2023-08-16] MEDS: INSULIN GLARGINE 100 UNIT/ML SQ SCH (04:21)
[2023-08-16] MEDS: ACETAMINOPHEN 500 MG TAB ONE (05:15)
--- NOTE | 2023-08-16 07:29 | P.PN ---
Date of Service: 08/16/23 Subjective: feeling much better compared to how she felt in ED has been having to strain/push when urinating for past few days. +urinating frequently and large volume minimal appetite last few days, +nausea/vomiting feels some pins/needles bottom of her feet tolerating sips of water. ROS: 10 point ROS as noted above, otherwise negative Physical Exam: GEN: Alert, oriented, NAD HEENT: Normal conjunctiva, sclera anicteric CV: Regular rate and rhythm, no edema Pulm: Nonlabored respirations on room air, clear bilaterally ABD: Soft, mild abdominal tenderness throughout, no distention Neuro: Normal speech, normal affect vitals reviewed Problem List: Intractable abdominal pain / nausea / vomiting secondary to Severe Hyperglycemia CRISTINA, pre-renal secondary to dehydration/GI loss; resolved Hyponatremia-pseudohyponatremia secondary to hyperglycemia IDDM2 Dysmenorrhea PTSD/anxiety tobacco use Intractable abdominal pain / nausea / vomiting secondary to severe hyperglycemia Reports worsening abdominal pain / bloating for ~1-2 days. +nausea/vomiting/headache CT abdomen (08/14): moderate stool in colon. CT abdomen w/contrast (08/14): 2.5 cm cystic structure at level of posterior pelvis - possible ovarian cyst, otherwise negative CT. CT head / chest xray (08/14): both negative for any acute findings lipase 123 on admission, repeat improved 64 (08/15) leukocytosis 9.2 -> 12.7 (08/15) suspect secondary to steroids given in ED continue IV fluids PRN analgesics / antiemetics trial of clear liquids for dinner; advance as tolerated urinalysis unremarkable Severe Hyperglycemia IDDM2 reports pre-diabetes ~4 years ago, and has been off metformin since ~2019 - told she didn't need it anymore Patient noted to be started on metformin [place] [address] Magallanes when admitted and had her total abdominal hysterectomy Was told she was prediabetic in 2019. Thinks a1c was ~5.5 in 2020. Reports intermittent headaches and neuropathy to lower extremities / feet titrate semglee pt will need insulin on discharge Accu-checks, SSI cortisol levels pending a1c 12.9 some component of hyperglycemia likely due to steroids given in ED, unclear reason for steroid CRISTINA, pre-renal secondary to dehydration/GI loss; resolved Hyponatremia-pseudohyponatremia secondary to hyperglycemia pre-renal CRISTINA, secondary to dehydration / vomiting / decreased PO intake creatinine 1-55 -> 0.93 (08/15) sodium 132 -> 128 (08/15) continue to monitor renal function, electrolytes nephrology consulted continue IV fluids Dysmenorrhea PTSD/anxiety confirm home meds, restart as appropriate tobacco use nicoderm patch ordered VTE: Lovenox Code: Full Dispo: Home, ~2 days Pending glc improves and remains stable
[2023-08-16] MEDS: NICOTINE 21 MG/PAT TD SCH (08:46)
[2023-08-16] MEDS: ENOXAPARIN 40 MG/0.4 ML SQ SCH (08:47)
[2023-08-16] MEDS: INSULIN REGULAR (HUMAN) 100 UNIT/ML SQ SCH (08:54)
--- NOTE | 2023-08-16 11:39 | CON ---
Date of Consultation: 08/16/2023 Reason For Consultation: Elevated BUN and creatinine, fluid management. History Of Present Illness: This is a pleasant 42-year-old female with significant past medical hist ory of posttraumatic stress, sickle cell trait with episode every 3 months. The patient came to the hospital complaining of nausea and vomiting and found to have DKA and elevation in BUN and creatinine . Creatinine 1.5. Patient was started on aggressive hydration. The patient's kidney function has b een improved. Acidosis resolved, but blood sugar still elevated. Past Medical History: Includes sickle cell trait. Past Surgical History: Includes hysterectomy. Allergies: TO IODINE. Home Medications: Include metformin. Social History: Active smoker. Occasional alcohol. Denied drugs abuse. Review of Systems: Head and Neck: Has headache. GI: Has nausea, vomiting. : No polyuria. No dysuria. No hematuria. 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 Respiratory: No shortness of breath. Cardiovascular: No chest pain. Endocrine: No polydipsia. Skin: No rash. Neuro: Has neuropathy. Musculoskeletal: No joint pain. Physical Examination: General: When I saw the patient, patient was lying in bed. Vital Signs: Blood pressure 118/67, pulse of 76, afebrile. Chest: Clear to auscultation. Heart: S1, S2. Regular. Abdomen: Tenderness. No guarding or rebound. DICTATION ENDS HERE LISSETTE Voice ID: [id number] Report ID: [id number]
[2023-08-16] MEDS: ACETAMINOPHEN 500 MG TAB PO PRN (11:44)
[2023-08-16] MEDS: NA CHLORIDE 0.9% 1,000 ML IV SCH (11:46)
--- NOTE | 2023-08-16 13:21 | CON ---
Date of Consultation: 08/16/2023 Reason For Consultation: Elevated BUN and creatinine, electrolyte imbalance. History Of Present Illness: This is a pleasant 42-year-old female with significant past medical hist ory of sickle cell disease with episodes of crisis every 3 months, hypertension, hyperlipidemia. ___ history of diabetes. The patient came to the hospital with nausea and vomiting for the last 3 days with abdominal pain, found to have elevation in BUN and creatinine, acidosis. For that reason , we have been consulted. The patient denied taking any pain medication. Upon arrival to the [facility], the patient was started on aggressive hydration. Kidney function has improved. Still has abdomi nal pain. Past Medical History: Includes: 1.Hypertension. 2.Sickle cell disease. Past Surgical History: Includes hysterectomy. Allergy: Iodine. Home Medication: Metformin. Family History: Positive for diabetes. Social History: Active smoker. Occasional alcohol. Denied drug abuse. Review of Systems: Head and Neck: No red eye. No ear pain. GI: Has abdominal pain. Has nausea, vomiting. : No polyuria, no dysuria, no hematuria. 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 Respiratory: No shortness of breath. Cardiovascular: No chest pain. Endocrine: No polydipsia. Skin: No rash. Physical Examination: Vital Signs: Blood pressure 118/67, pulse of 76, afebrile. Chest: Clear to auscultation. Heart: S1, S2 regular. Abdomen: Soft, tender. No guarding or rebound. Extremities: No edema. Neurologic: Alert. No focality. Lab: Upon admission hemoglobin 13.7, today 12.7, WBC 12.7, platelets 283. Upon admission sodium 134 , potassium 4.3, bicarb 24, BUN 14, creatinine 1.5, GFR of 43, blood sugar 421. Calcium 8.9, magnesi um 2.1. Albumin 3.7. Today sodium 128, potassium 3.9, bicarb 21, BUN 18, creatinine 0.9, blood suga r 322. Calcium 8.3. Albumin 3.6. Current Medications: The patient on include diphenhydramine, nicotine patch, hydralazine, LR, Zofran , Solu-Medrol. Assessment And Plan: 1.Acute kidney injury secondary to prerenal, secondary to gluco diuresis and GI loss, resolved. I a m going to go ahead and send for basic workup with PC ratio history of diabetes and we latasha l continue hydration. 2.Hyponatremia secondary to renal failure superimposed with pseudo hyponatremia secondary to hypergl ycemia. Corrected sodium around 131. I am going to change IV fluid to normal saline and we will inc rease the rate. We will send for cortisol and uric acid with TSH and we will follow up. 3.Hyperglycemia. As by primary. 4.Contraction alkalosis. Start aggressive hydration. 5.Gastroenteritis secondary to hyperglycemia. Continue symptomatic treatment. Follow up with ronel melton. Thank you Dr. Springer for allowing us to participate in the care of your patient. LUCIAN/SHARAD Voice ID: [id number] Report ID: [id number]
[2023-08-16] MEDS: INSULIN GLARGINE 100 UNIT/ML SQ ONE (13:55)
[2023-08-16] MEDS: INSULIN GLARGINE 100 UNIT/ML SQ STA (14:01)
[2023-08-16] MEDS: DIPHENHYDRAMINE 25 MG TAB/CAP PO ONE (19:48)
[2023-08-16] MEDS ORDERED: METHYLPREDNISOLONE 125 MG INJ IV ONE (21:46)
[2023-08-17] MEDS: ONDANSETRON 4 MG/2 ML VIAL IV PRN (07:37)
[2023-08-17 07:45] LABS: Albumin 2.5 g/dL (3.4-5.0); Anion Gap 4.3 mEq/L (5.0-15.0); Phosphorus 2.4 mg/dL (2.5-4.9); Potassium 3.3 mEq/L (3.5-5.1); Thyroid Stimulating Hormone 0.893 uIU/mL (0.358-3.740); Uric Acid 3.8 mg/dL (2.6-6.0)
[2023-08-17 08:08] LABS: Absolute Eosinophils 0.1 K/uL (0-0.5); Absolute Lymphocytes (CBC) 4.4 K/uL (0.7-4.9); Absolute Monocytes 0.4 K/uL (0.1-1.3); Absolute Neutrophil 4.5 K/uL (1.8-8.0); Basophils % 0.1 % (0-1.3); Eosinophils % 0.7 % (0-4.4); Hematocrit 30.1 % (36.0-45.0); Lymphocytes % 46.8 % (15.3-44.8); MCH 29.8 pg (27.0-35.0); MCHC 33.3 g/dL (32.0-36.0); MCV 89.7 fL (80-100); MPV 8.2 fL (7.6-11.3); Monocytes % 4.6 % (3.3-12.3); Neutrophils % 47.8 % (41.7-73.7); Platelets 201 thou/uL (152-406); RBC Red Blood Cell Count 3.36 M/uL (3.86-4.86); Red Cell Distribution Width 12.6 % (12.1-15.2)
[2023-08-17] MEDS: MORPHINE 4 MG/ML SYR IV PRN ×2 (08:49→21:08)
--- NOTE | 2023-08-17 10:19 | P.PN ---
Date of Service: 08/17/23 Subjective: nausea/vomiting worsened overnight. 2 episodes of vomiting overnight no BM since admission. +flatus. feeling some abdominal discomfort/bloating, worsened with movement still having to strain/push entire time when urinating. +large volume. Having to urinate every 1-2 hours chronologically started feeling bloated first, then straining when urinating ROS: 10 point ROS as noted above, otherwise negative Physical Exam: GEN: Alert, oriented, NAD HEENT: Normal conjunctiva, sclera anicteric CV: Regular rate and rhythm, no edema Pulm: Nonlabored respirations on room air, clear bilaterally ABD: Soft, moderate abdominal tenderness throughout, no distention Neuro: Normal speech, normal affect vitals reviewed Problem List: Intractable abdominal pain / nausea / vomiting secondary to Severe Hyperglycemia CRISTINA, pre-renal secondary to dehydration/GI loss; resolved Hyponatremia-pseudohyponatremia secondary to hyperglycemia IDDM2 with Severe Hyperglycemia Constipation Dysmenorrhea PTSD/anxiety tobacco use hx Sickle cell trait Intractable abdominal pain / nausea / vomiting secondary to severe hyperglycemia Reports worsening abdominal pain / bloating for ~1-2 days. + nausea/vomiting/headache CT abdomen (08/14): moderate stool in colon. CT abdomen w/contrast (08/14): 2.5 cm cystic structure at level of posterior pelvis - possible ovarian cyst, otherwise negative CT. CT head / chest xray (08/14): both negative for any acute findings lipase 123 on admission, repeat improved 64 (08/15) leukocytosis resolved (08/16) suspect secondary to steroids given in ED continue IV fluids PRN analgesics / antiemetics clear liquid diet urinalysis unremarkable IDDM2 with Severe Hyperglycemia reports pre-diabetes ~4 years ago, and has been off metformin since ~2019 - told she didn't need it anymore. Thinks a1c was ~5.5 in 2019. Patient noted to be started on [place] [address] Magallanes when admitted and had her total abdominal hysterectomy Reports intermittent headaches and neuropathy to lower extremities / feet titrate semglee pt will need insulin on discharge Accu-checks, SSI cortisol 1.93 wnl a1c 12.9 some component of hyperglycemia likely due to steroids given in ED, unclear reason for steroid Constipation CT with moderate amount of stool throughout colon Patient reports increased bloating/abd discomfort, +has to strain when urinating Hasn't had BM in few days. +passing flatus suspect urinary symptoms secondary to constipation. Urinalysis not suggestive of UTI. patient wanting to try for oral/liquid laxative first Start stool softener, mag citrate x1 ordered CRISTINA, pre-renal secondary to dehydration/GI loss; resolved Hyponatremia-pseudohyponatremia secondary to hyperglycemia pre-renal CRISTINA, secondary to dehydration / vomiting / decreased PO intake CRISTINA resolved, hypoNa resolved (08/16) continue to monitor renal function, electrolytes nephrology consulted continue IV fluids Dysmenorrhea PTSD/anxiety confirm home meds, restart as appropriate tobacco use nicoderm patch ordered hx Sickle cell trait Reports being bedridden and had to be hospitalized in [place] as a child. Has been relatively okay/stable since moving to [place] years ago. does not appear to be in crisis VTE: Lovenox Code: Full Dispo: Home, ~1-2 days Pending glc improves and remains stable pending +BM
[2023-08-17] MEDS: MAGNESIUM CITRATE 300 ML BOT PO SCH (11:00)
--- NOTE | 2023-08-17 12:01 | RAD REPORT ---
EXAM DESCRIPTION: Abdomen Pelvis W Contrast 11:11:59 PM CLINICAL HISTORY: Suspected pancreatitis COMPARISON: 08/15/2023, CT Abdomen Pelvis Without IV Contrast 06: 50:31 PM TECHNIQUE: Contiguous axial images of the abdomen and pelvis were obtained after the administration of intravenous contrast followed by reconstruction images.This exam was performed according to our de partmental dose-optimization program, which includes automated exposure control, adjustment of the mA and/or kV according to patient size and/or use of iterative reconstruction technique. FINDINGS: 2.5 cm cystic structure at the level of the posterior pelvis could represent an ovarian cy st. No further follow-up recommended. The liver, spleen, pancreas and kidneys are within normal limits. There is no hydronephrosis or renal stones. The gallbladder is unremarkable by CT criteria. Adrenal glands are within normal limits. Aor ta is of normal caliber and tapering. There is no free fluid in the abdomen or pelvis. There is no amanda wel obstruction. There is no stranding of the mesenteric fat to suggest an inflammatory response. The appendix is within normal limits. There is no pericecal inflammation. IMPRESSION: No acute intra-abdominal abnormality. Electronically signed by: Inderjit Bellamy MD 08/15/2023 11:38 PM CDT Due to temporary technical issues with the PACS/Fluency reporting system, reports are being signed by the in house radiologists without review as a courtesy to insure prompt reporting. The interpreting radiologist is fully responsible for the content of the report.
--- NOTE | 2023-08-17 12:17 | PN ---
Date of Progress Note: 08/17/2023 Subjective: The patient was admitted to the hospital with acute kidney injury, sickle cell crisis __ hyponatremia, and contrast. The patient after hydration, kidney function has been improved. Physical Examination: Vital Signs: Blood pressure 125/81, pulse of 83, afebrile. Chest: Clear to auscultation. Heart: S1, S2 regular. Abdomen: Mild tenderness. No guarding or rebound. Extremities: No edema. Laboratory Data: Hemoglobin 10. Sodium 140, potassium 3.3, bicarb 24, BUN 11, creatinine 0.5, calci um 7.6. Uric acid 3.8. Phosphorus 2.4. Albumin 2.5. Corrected calcium is 8.8. Current Medications: The patient is on include: Diphenhydramine, Lovenox, hydralazine, Zofran, insu laurie, normal saline at 150 per hour. Assessment And Plan: 1.Acute kidney injury secondary to contrast exposure, prerenal secondary to glucose diuresis. On recovery phase. I am going to decrease IV fluid to 75. Plan to discontinue. 2.Hypokalemia. We will supplement. 3.Alkalosis secondary to glucose diuresis, recover, resolved. 4.Diabetic ketoacidosis as by primary. 5.Diabetes as by primary. LUCIAN/SHARAD Voice ID: [id number] Report ID: [id number]
[2023-08-17] MEDS: DIPHENHYDRAMINE 25 MG TAB/CAP ONE (13:27)
[2023-08-17] MEDS: POTASSIUM CL 40 MEQ in NA CHLORIDE 0.9% 500 ML IV SCH (13:29)
[2023-08-17] MEDS: DOCUSATE NA 100 MG CAP PO SCH (13:30)
[2023-08-17] MEDS: NA CHLORIDE 0.9% 1,000 ML IV SCH (13:30)
[2023-08-17] MEDS: DIPHENHYDRAMINE 12.5MG/5ML LIQ ONE (13:48)
[2023-08-17] MEDS: DIPHENHYDRAMINE 12.5MG/5ML LIQ PO ONE (13:50)
[2023-08-17] MEDS: MORPHINE 4 MG/ML SYR ONE (15:21)
[2023-08-17] MEDS: MORPHINE 4 MG/ML SYR IV ONE (15:23)
[2023-08-17] MEDS ORDERED: FLEET ENEMA ADULT PR PRN (17:53)
[2023-08-17] MEDS: KETOROLAC 30 MG/ML INJ IV ONE (19:17)
[2023-08-17] MEDS: DIPHENHYDRAMINE 25 MG TAB/CAP PO ONE (22:21)
--- NOTE | 2023-08-17 22:56 | P.PN ---
Date of Service: 08/17/23 Called to evaluate patient's with complaint of chest pain. On arrival patient complaining of bilateral breast pain,, she states her breast has increased in size since after showering this evening. On evaluation breast appears normal size, no tenderness of the breast, tenderness over the rib margin extending to on both sides and shoulder as well as posterior rib borders. Also tenderness on palpation of the extreme long bones. Patient on questioning admits to history of sickle cell trait. She states she has siblings who have sickle cell anemia. She says she has never had any chest syndrome but have intermittent bone pains. Will hemoglobin is stable at 13.7. Will continue pain regimen of morphine as needed, Will also obtain sickle cell screen as well as troponin level. Previously ordered EKG canceled
[2023-08-18] MEDS: CODEINE 30MG/APAP 300MG TAB PO PRN (00:24)
[2023-08-18 07:20] LABS: Absolute Basophils 0.1 K/uL (0-0.5); Absolute Eosinophils 0.2 K/uL (0-0.5); Absolute Lymphocytes (CBC) 4.4 K/uL (0.7-4.9); Absolute Monocytes 0.4 K/uL (0.1-1.3); Absolute Neutrophil 2.9 K/uL (1.8-8.0); Basophils % 0.9 % (0-1.3); Eosinophils % 2.9 % (0-4.4); Hematocrit 33.8 % (36.0-45.0); Hemoglobin 11.3 g/dL (12.0-15.0); Lymphocytes % 55.5 % (15.3-44.8); MCH 30.2 pg (27.0-35.0); MCHC 33.4 g/dL (32.0-36.0); MCV 90.5 fL (80-100); MPV 8.8 fL (7.6-11.3); Monocytes % 4.5 % (3.3-12.3); Neutrophils % 36.2 % (41.7-73.7); Nucleated Red Blood Cells % 0.2 % (0-0); Platelets 234 thou/uL (152-406); RBC Red Blood Cell Count 3.73 M/uL (3.86-4.86); Red Cell Distribution Width 12.7 % (12.1-15.2)
[2023-08-18 07:41] LABS: ALT/SGPT 65 U/L (13-56); AST/SGOT 51 U/L (15-37); Albumin 2.8 g/dL (3.4-5.0); Alkaline Phosphatase 84 U/L (45-117); Anion Gap 6.9 mEq/L (5.0-15.0); BUN Blood Urea Nitrogen 4 mg/dL (7-18); Bicarbonate 24 mEq/L (21-32); Bilirubin Total 0.3 mg/dL (0.2-1.0); Globulin 2.8 g/dL (2.3-3.5); Glomerular Filtration Rate 120 ml/min (=/>90); Glucose Level 126 mg/dL (74-106); Phosphorus 2.6 mg/dL (2.5-4.9); Potassium 3.9 mEq/L (3.5-5.1); Protein, Total 5.6 g/dL (6.4-8.2); Sodium Level 140 mEq/L (136-145)
[2023-08-18 07:45] LABS: Bilirubin Direct < 0.1 mg/dL (0-0.2); Bilirubin Indirect, Calculated ND mg/dL (0.2-0.8)
[2023-08-18] MEDS: DIPHENHYDRAMINE 25 MG TAB/CAP PO ONE (09:08)
--- NOTE | 2023-08-18 13:03 | EKG ---
Test Date: 2023-08-15 Test Time: 18:14:37 Inspector Aide: CATARINO MEASUREMENT RESULTS: Intervals: Rate: 94 CT: 130 QRSD: 84 QT: 358 QTc: 447 [place]: P: 79 CT: 130 QRS: 74 T: 46 INTERPRETIVE STATEMENTS: Normal sinus rhythm Normal ECG No previous ECG available for comparison Electronically Signed On 08-18-23 12:56:17 CDT by Vivek Wong
[2023-08-18 21:18] LABS: UR PROTEIN 10.4 mg/dL (<11.9); Urine Protein/Creatinine Ratio 0.14 ratio (<0.15)
[2023-08-18] MEDS: DIPHENHYDRAMINE 50 MG/ML VIAL IV PRN (23:51)
[2023-08-19 00:31] VITALS: O2SAT 100
--- NOTE | 2023-08-19 03:36 | PN ---
Date of Progress Note: 08/18/2023 Chief Complaint: Elevated BUN and creatinine and electrolyte imbalance. History: The patient is a 42-year-old woman with past medical history significant for sickle cell di sease with episodes of crisis every 3 months, hypertension, hyperlipidemia, has history of diabetes m ellitus. The patient came to the hospital because of nausea, vomiting. She developed some abdominal pain over 3 days prior to this admission. She was found to have elevated BUN and creatinine, metabo lic acidosis. Nephrology was consulted for abnormal renal function test. Renal function has somewha t improved in response to aggressive hydration. The patient is still complaining of nausea and abdom inal pain. Review of Systems: Denies chest pain, palpitations. Physical Examination: Lungs: Diminished breath sounds at bases. Heart: S1, S2. Abdomen: Soft. Extremities: No edema. Laboratory Data: BUN 14, creatinine 1.5, potassium 4.3. Sodium 134, calcium 8.9, blood glucose 421, magnesium is 2.1, albumin 3.7. Impression And Plan: 1.Acute kidney injury secondary to prerenal azotemia and uncontrolled diabetes. The patient had GI loss due to nausea, vomiting, and diarrhea. Continue IV fluids and monitor for renal function. 2.Hyponatremia secondary to renal pseudohyponatremia due to hyperglycemia. Corrected sod ium is around 131. Continue IV fluids with normal saline and adjust rate according to lab results. Monitor cortisol level and uric acid level as well as TSH to rule out other etiology. 3.Hyperglycemia. Continue insulin per primary team. 4.Contraction alkalosis. The patient was started on IV fluids to correct alkalosis. 5.Gastroenteritis, secondary to hyperglycemia. Continue treatment for gastroenteritis. Continue IV fluids. EB/MODL Voice ID: [id number] Report ID: [id number]
[2023-08-19 04:22] LABS: Albumin 2.7 g/dL (3.4-5.0); Phosphorus 3.5 mg/dL (2.5-4.9)
--- NOTE | 2023-08-19 07:33 | P.PN ---
Date of Service: 08/18/23 Subjective: no worsening minimal improvement of abd cramping pain +BMs overnight straining with urination less nausea, able to keep clear liquids down today ROS: 10 point ROS as noted above, otherwise negative Physical Exam: GEN: Alert, oriented, appears uncomfortable HEENT: Normal conjunctiva, sclera anicteric CV: Regular rate and rhythm, no edema Pulm: Nonlabored respirations on room air, clear bilaterally ABD: Soft, moderate abdominal tenderness throughout, no distention Neuro: Normal speech, normal affect vitals reviewed Problem List: Intractable abdominal pain / nausea / vomiting secondary to Severe Hyperglycemia CRISTINA, pre-renal secondary to dehydration/GI loss; resolved Hyponatremia-pseudohyponatremia secondary to hyperglycemia IDDM2 with Severe Hyperglycemia Constipation Dysmenorrhea PTSD/anxiety tobacco use hx Sickle cell trait Intractable abdominal pain / nausea / vomiting secondary to severe hyperglycemia Reports worsening abdominal pain / bloating for ~1-2 days. +nausea/vomiting/headache CT abdomen (08/14): moderate stool in colon. CT abdomen w/contrast (08/14): 2.5 cm cystic structure at level of posterior pelvis - possible ovarian cyst, otherwise negative CT. CT head / chest xray (08/14): both negative for any acute findings lipase 123 on admission, repeat improved 64 (08/15) leukocytosis resolved (08/16) suspect secondary to steroids given in ED continue IV fluids PRN analgesics / antiemetics clear liquid diet advance to fulls, ok for crackers 08/17 urinalysis unremarkable IDDM2 with Severe Hyperglycemia reports pre-diabetes ~4 years ago, and has been off metformin since ~2019 - told she didn't need it anymore. Thinks a1c was ~5.5 in 2019. Patient noted to be started on [place] [address] Magallanes when admitted and had her total abdominal hysterectomy Reports intermittent headaches and neuropathy to lower extremities / feet titrate semglee pt will need insulin on discharge Accu-checks, SSI cortisol 1.93 wnl a1c 12.9 some component of hyperglycemia likely due to steroids given in ED steroids given due to iodine allergy reported, and underwent CT with contrast Constipation CT with moderate amount of stool throughout colon Patient reports increased bloating/abd discomfort, +has to strain when urinating Hasn't had BM in few days. +passing flatus suspect urinary symptoms secondary to constipation. Urinalysis not suggestive of UTI. stool softener BMs after mg citrate CRISTINA, pre-renal secondary to dehydration/GI loss; resolved Hyponatremia-pseudohyponatremia secondary to hyperglycemia pre-renal CRISTINA, secondary to dehydration / vomiting / decreased PO intake CRISTINA resolved, hypoNa resolved (08/16) continue to monitor renal function, electrolytes nephrology consulted resolved with IVF Dysmenorrhea PTSD/anxiety confirm home meds, restart as appropriate tobacco use nicoderm patch ordered hx Sickle cell trait Reports being bedridden and had to be hospitalized in [place] as a child. Has been relatively okay/stable since moving to [place] years ago. does not appear to be in crisis VTE: Lovenox Code: Full Dispo: Home, ~1 day Pending glc improves and remains stable
[2023-08-19] MEDS: HYDROCODONE/APAP 5/325 MG TAB PO PRN (11:15)
[2023-08-19] MEDS: NA CHLORIDE 0.9% 1,000 ML IV SCH (13:00)
[2023-08-19] MEDS: NA CHLORIDE 0.9% 1,000 ML IV ONE (13:02)
[2023-08-19 16:16] VITALS: BP 105/59; TEMP 97.8
--- NOTE | 2023-08-19 16:54 | P.DS ---
Admission Date: 08/17/23 Discharge Date: 08/19/23 Disposition: ROUTINE DISCHARGE Discharge Condition: FAIR Reason for Admission: Abdominal pain and vomiting Brief History of Present Illness: 42-year-old female with past medical history of dysmenorrhea, PTSD status post hysterectomy, presented because of complaint of epigastric area pain of 3 days duration associated with abdominal bloating, nausea and vomiting. Patient also reported constipation. On arrival in the ED, CT of the abdomen and pelvics shows stool in the bowel but no acute intra-abdominal pathology, lipase was noted elevated at 123, glucose was noted elevated at 417 with creatinine of 1.5. Review of records showed she was actually started on metformin [place] [address] Haque during admission for dysmenorrhea requiring total abdominal hysterectomy at the time. Patient was hospitalized for further management. Hospital Course: Diagnosis Intractable abdominal pain / nausea / vomiting secondary to Severe Hyperglycemia CRISTINA, pre-renal secondary to dehydration/GI loss; resolved Hyponatremia-pseudohyponatremia secondary to hyperglycemia IDDM2 with Severe Hyperglycemia Constipation Dysmenorrhea PTSD/anxiety tobacco use hx Sickle cell trait Ovarian cyst. Presented with abdominal pain, nausea vomiting and headache. CT abdomen and pelvis showed some constipation, and a cystic structure at the level of the pelvis suggesting ovarian cyst Blood work also demonstrated severe hyperglycemia, hemoglobin A1c of 12 indicating uncontrolled diabetes. Blood work also showed dehydration. Patient was treated with IV fluid and placed on insulin sliding scale. Patient blood sugar readings were mostly below 200 which does not correlate with the high hemoglobin A1c. She intermittently needed insulin coverage but not every day during the hospital stay. Diet modification may play a significant role in her blood sugar control since she did not need as much insulin coverage. Patient was started on clear liquid diet and slowly advance to solid diet which she tolerated without nausea or vomiting. Her abdominal pain was managed with opioids. Overall patient has clinically improved. Patient is discharged with prescription for metformin and insulin sliding scale. Vital Signs/Physical Exam: Temp Pulse Resp BP Pulse Ox 97.8 F 81 14 105/59 L 100 08/19/23 15:54 08/19/23 15:54 08/19/23 15:54 08/19/23 15:54 08/19/23 15:54 General: Alert, In no apparent distress, Oriented x3 HEENT: Mucous membr. moist/pink Neck: Supple, JVD not distended Respiratory: Clear to auscultation bilaterally, Normal air movement Cardiovascular: No edema, Regular rate/rhythm, Normal S1 S2 Gastrointestinal: Normal bowel sounds, Soft and benign, Non-distended, No tenderness Musculoskeletal: No swelling Integumentary: No rashes, No cyanosis Neurological: Normal strength at 5/5 x4 extr Laboratory Data at Discharge: WBC 8.00 thou/uL (4.3-10.9) 08/18/23 06:18 Hgb 11.3 g/dL (12.0-15.0) L D 08/18/23 06:18 Hct 33.8 % (36.0-45.0) L 08/18/23 06:18 Plt Count 234 thou/uL (152-406) 08/18/23 06:18 Sodium 138 mEq/L (136-145) 08/19/23 03:27 Potassium 4.0 mEq/L (3.5-5.1) 08/19/23 03:27 BUN 4 mg/dL (7-18) L 08/19/23 03:27 Creatinine 0.67 mg/dL (0.55-1.02) 08/19/23 03:27 Glucose 253 mg/dL (74-106) H 08/19/23 03:27 Uric Acid 3.8 mg/dL (2.6-6.0) 08/17/23 06:53 Phosphorus 3.5 mg/dL (2.5-4.9) 08/19/23 03:27 Magnesium 2.1 mg/dL (1.6-2.4) 08/15/23 19:00 Total Bilirubin 0.3 mg/dL (0.2-1.0) 08/18/23 06:18 AST 51 U/L (15-37) H 08/18/23 06:18 ALT 65 U/L (13-56) H 08/18/23 06:18 Alkaline Phosphatase 84 U/L (45-117) 08/18/23 06:18 Lipase 57 U/L (13-75) 08/18/23 06:18 Home Medications: Alcohol Antiseptic Pads [Alcohol Swabs] 1 each TP TID #100 swab 08/19/23 Blood Sugar Diagnostic [Blood Glucose Test Strip] 1 each MC TID #90 strip 08/19/23 Blood-Glucose Meter [Blood Glucose Monitoring] 1 each MC TID #1 kit 08/19/23 Docusate [Colace Cap*] 100 mg PO BID #60 cap 08/19/23 Hydrocodone 5/APAP 325 [Prichard 5/325*] 1 tab PO Q6H PRN #12 tab 08/19/23 Insulin -Regular Human [Novolin -R*] See Protocol SQ ACHS #15 ml 08/19/23 Insulin Lispro [Insulin Lispro Kwikpen U-100] 100 unit SQ TID #15 ml 08/19/23 Lancets [E-Z Ject Lancets] 1 each MC TID #100 ea 08/19/23 Metformin HCl [Glucophage*] 500 mg PO BIDWM #60 tab 08/19/23 Syring-Needl,Disp,Insul,0.3 ml [Insulin Syringe] 1 each MC TID #100 units 08/19/23 New Medications: Alcohol Antiseptic Pads [Alcohol Swabs] 1 each TID #100 swab Blood-Glucose Meter [Blood Glucose Monitoring] 1 each MC TID #1 kit Blood Sugar Diagnostic [Blood Glucose Test Strip] 1 each MC TID #90 strip Docusate [Colace Cap*] 100 mg PO BID #60 cap Lancets [E-Z Ject Lancets] 1 each MC TID #100 ea Metformin HCl [Glucophage*] 500 mg PO BIDWM #60 tab Insulin Lispro [Insulin Lispro Kwikpen U-100] 100 unit SQ TID #15 ml Syring-Needl,Disp,Insul,0.3 ml [Insulin Syringe] 1 each MC TID #100 units Hydrocodone 5/APAP 325 [Prichard 5/325*] 1 tab PO Q6H PRN #12 tab PRN Reason: Pain Scale 5-7 (Moderate) Insulin -Regular Human [Novolin -R*] See Protocol SQ ACHS #15 ml Physician Discharge Instructions: Presented with abdominal pain, nausea vomiting and headache. CT abdomen and pelvis showed some constipation, and a cystic structure at the level of the pe lvis suggesting ovarian cyst Blood work also demonstrated severe hyperglycemia, hemoglobin A1c of 12 indicating uncontrolled diabetes. Blood work also showed dehydration. Patient was treated with IV fluid and placed on insulin sliding scale. Patient blood sugar readings were mostly below 200 which does not correlate with the high hemoglobin A1c. She intermittently needed insulin coverage but not every day during the hospital stay. Diet modification may play a significant role in her blood sugar control since she did not need as much insulin coverage. Patient was started on clear liquid diet and slowly advance to solid diet which she tolerated without nausea or vomiting. Her abdominal pain was managed with opioids. Overall patient has clinically improved. Patient is discharged with prescription for metformin and insulin sliding scale. Please check your blood sugar 3 times before meals and give yourself insulin according to the sliding scale. Keep a log of your blood sugar readings and follow-up with your PCP within 1 week for diabetes medications adjustments. Diabetic diet highly recommended. Please follow-up with your water valve repairer Dr. Haque regarding the ovarian cyst noted on the CT scan. Diet: ADA Activity: Ad kiran Followup: NONE,NONE [Primary Care Provider] - 1-2 Weeks Time spent managing pt's care (in minutes): 38
--- NOTE | 2023-08-19 17:18 | PN ---
Date of Progress Note: 08/19/2023 Subjective: The patient was admitted with sickle cell crisis with acute kidney injury secondary to p rerenal. The patient was started on hydration. The patient had contrast. Kidney function normalize d. Objective: Vital Signs: Blood pressure 97/54, pulse of 72, afebrile. Chest: Clear to auscultation. Heart: S1, S2. Regular. Abdomen: Tender. No guarding or rebound. Laboratory Data: Hemoglobin 11.3, sodium 138, potassium 4, bicarb 30, BUN 4, creatinine 0.6, calcium 8.1, phosphorus 3.1, albumin 2.7, corrected calcium 9.5. Current Medications: The patient on, it includes nicotine patch, Lovenox, Tylenol, insulin. Assessment And Plan: 1.Acute kidney injury secondary to prerenal. Continue to recover, resolved. Patient looked to me o n the dry side. I resumed hydration for the patient and we will follow up. 2.Hypertension, currently blood pressure on the lower side. We will follow up the patient. 3.DKA, new diagnosis, diabetes, as by Primary. 4.Contraction alkalosis. We will resume IV fluid. 5.Hyponatremia, depletional. Resume hydration. LUCIAN/SHARAD Voice ID: [id number] Report ID: [id number]
== END 2023-08-19 17:40 | disposition home health service (06) | DRG 638 ==
LOC: ER 17:34 → ERHOLD 21:49 → 2ND 23:50 → OBSVTOIN 08-17 10:40
PROVIDERS: ADMIT Internal Medicine; ATTEND Internal Medicine
DX: E11.10 Type 2 diabetes mellitus with ketoacidosis without coma (principal); E87.1 Hypo-osmolality and hyponatremia; N17.9 Acute kidney failure, unspecified; E87.3 Alkalosis; E11.40 Type 2 diabetes mellitus with diabetic neuropathy, unspecified; D57.1 Sickle-cell disease without crisis; E87.6 Hypokalemia; F43.10 Post-traumatic stress disorder, unspecified; E86.0 Dehydration; N94.6 Dysmenorrhea, unspecified; K59.00 Constipation, unspecified; F41.9 Anxiety disorder, unspecified; N83.209 Unspecified ovarian cyst, unspecified side; K52.9 Noninfective gastroenteritis and colitis, unspecified; D72.829 Elevated white blood cell count, unspecified; T38.0X5A Adverse effect of glucocorticoids and synthetic analogues, initial encounter; F17.210 Nicotine dependence, cigarettes, uncomplicated; Z79.84 Long term (current) use of oral hypoglycemic drugs; Z90.710 Acquired absence of both cervix and uterus; Z91.048 Other nonmedicinal substance allergy status
CPT/HCPCS: 36415; 70450; 71045; 74176; 74177; 80053; 80069; 80076; 81003; 82533; 82550; 82570; 82947; 83036; 83690; 83735; 84132; 84156; 84300; 84443; 84484; 84550; 85025; 85044; 85660; 93005; 96361; 96372; 96374; 96375; 99285; G0378; J0171; J1100; J1200; J1650; J1815; J2270; J2405; J2765; J2919; J3480; J7030; J7040; J7120; J7614; Q0163; Q9967

== ENCOUNTER 2023-09-29 19:24 | Emergency (ER) | payer BC ==
[2023-09-29] MEDS ORDERED: KETOROLAC 30 MG/ML INJ ONE (20:01)
[2023-09-29] MEDS ORDERED: DIPHENHYDRAMINE 50 MG/ML VIAL ONE (20:02)
[2023-09-29] MEDS ORDERED: METOCLOPRAMIDE 10 MG/2mL INJ ONE (20:02)
[2023-09-29] MEDS ORDERED: NA CHLORIDE 0.9% 1,000 ML ONE (20:02)
[2023-09-29 20:28] LABS: Absolute Basophils 0.1 K/uL (0-0.5); Absolute Eosinophils 0.1 K/uL (0-0.5); Absolute Lymphocytes (CBC) 2.8 K/uL (0.7-4.9); Absolute Monocytes 0.3 K/uL (0.1-1.3); Absolute Neutrophil 3.6 K/uL (1.8-8.0); Hematocrit 43.4 % (36.0-45.0); Hemoglobin 13.8 g/dL (12.0-15.0); Lymphocytes % 40.9 % (15.3-44.8); MCH 28.6 pg (27.0-35.0); MCHC 31.9 g/dL (32.0-36.0); MCV 89.9 fL (80-100); MPV 7.4 fL (7.6-11.3); Neutrophils % 52.1 % (41.7-73.7); Platelets 361 thou/uL (152-406); RBC Red Blood Cell Count 4.83 M/uL (3.86-4.86); Red Cell Distribution Width 12.7 % (12.1-15.2)
[2023-09-29 20:42] LABS: Anion Gap 5.6 mEq/L (5.0-15.0); Potassium 3.6 mEq/L (3.5-5.1)
--- NOTE | 2023-09-29 21:28 | ER ---
Nurse's Notes [facility] Name: Jeffrey Diaz Age: 42 yrs Sex: Female : 1980 Arrival Date: 09/29/2023 Time: 19:24 Bed 15 Private MD: Diagnosis: Hyperglycemia, unspecified;Migraine without aura, not intractable Presentation: 09/28 19:39 Chief complaint: Patient states: "For the past 3 days, I've had a migraine, N/V. I feel mb9 like my Diabetes is giving me a headache.". Coronavirus screen: At this time, the client does not indicate any symptoms associated with coronavirus-19. Ebola Screen: No symptoms or risks identified at this time. Initial Sepsis Screen: Does the patient meet any 2 criteria? No. Patient's initial sepsis screen is negative. Does the patient have a suspected source of infection? No. Patient's initial sepsis screen is negative. Risk Assessment: Do you want to hurt yourself or someone else? Patient reports no desire to harm self or others. Onset of symptoms was September 29, 2023. 19:39 Method Of Arrival: Ambulatory 9 19:39 Acuity: NADER 3 mb9 Triage Assessment: 19:41 General: Appears in no apparent distress. Behavior is calm, cooperative. Pain: mb9 Complains of pain in headache. Pain: Pain radiates to back Pain currently is 10 out of 10 on a pain scale. Quality of pain is described as sharp, Pain began 2-3 days ago. Is continuous. EENT: No signs and/or symptoms were reported regarding the EENT system. Neuro: Ocampo Agitation-Sedation Scale (RASS): 0 - Alert and Calm Level of Consciousness is awake, alert, obeys commands, Oriented to person, place, time, situation, Appropriate for age Secondary Teacher are equal bilaterally Moves all extremities. Gait is steady, Speech is normal, Facial symmetry appears normal, Pupils are PERRLA, Intact. Neuro: Reports headache. Cardiovascular: Patient's skin is warm and dry. Respiratory: Airway is patent Respiratory effort is even, unlabored, Respiratory pattern is regular, symmetrical. GI: Reports nausea, vomiting. : No signs and/or symptoms were reported regarding the genitourinary system. Derm: Skin is pink, warm \\T\\ dry. Musculoskeletal: Range of motion: intact in all extremities. KAIAKO KURA KAUPAPA MAORI: 21:49 LMP 2023, unknown jw7 Historical: - Allergies: 19:40 Iodine; mb9 - Home Meds: 19:40 None [Active]; mb9 - PMHx: 19:40 Anxiety; Migraines; PTSD; Diabetes mellitus; mb9 - PSHx: 19:40 Total abdominal hysterectomy; mb9 - Immunization history:: Adult Immunizations up to date. - Infectious Disease History:: Denies. - Social history:: Smoking status: Patient denies any tobacco usage or history of. Screenin:50 [facility] ED Fall Risk Assessment (Adult) History of falling in the last 3 months, jw7 including since admission No falls in past 3 months (0 pts) Confusion or Disorientation No (0 pts) Intoxicated or Sedated No (0 pts) Impaired Gait No (0 pts) Mobility Assist Device Used No (0 pt) Altered Elimination No (0 pt) Score/Fall Risk Level 0 - 2 = Low Risk Oriented to surroundings, Maintained a safe environment, Educated pt \\T\\ family on fall prevention, incl call for assistance when getting out of bed. Abuse screen: Denies threats or abuse. Denies injuries from another. Nutritional screening: No deficits noted. Tuberculosis screening: No symptoms or risk factors identified. Assessment: 19:50 General: Appears in no apparent distress. uncomfortable, Behavior is calm, cooperative, jw7 appropriate for age. Pain: Complains of pain in Head Pain does not radiate. Pain currently is 9 out of 10 on a pain scale. Quality of pain is described as throbbing, Pain began 2-3 days ago. Is continuous. Neuro: Level of Consciousness is awake, alert, obeys commands, Oriented to person, place, time, situation, Appropriate for age. Cardiovascular: Heart tones S1 S2 present Capillary refill < 3 seconds Patient's skin is warm and dry. Respiratory: Airway is patent Trachea midline Respiratory effort is even, unlabored, Respiratory pattern is regular, symmetrical. GI: Abdomen is flat, non-distended. : No deficits noted. No signs and/or symptoms were reported regarding the genitourinary system. EENT: No deficits noted. No signs and/or symptoms were reported regarding the EENT system. Derm: Skin is intact, is healthy with good turgor, Skin is dry, Skin is normal, Skin temperature is warm. Musculoskeletal: Circulation, motion, and sensation intact. Range of motion: intact in all extremities. 20:50 Reassessment: Patient appears in no apparent distress at this time. Patient and/or jw7 family updated on plan of care and expected duration. Pain level reassessed. Patient is alert, oriented x 3, equal unlabored respirations, skin warm/dry/pink. Patient states feeling better. Patient states symptoms have improved. 21:50 Reassessment: Patient appears in no apparent distress at this time. No changes from [facility] previously documented assessment. Patient and/or family updated on plan of care and expected duration. Pain level reassessed. Patient is alert, oriented x 3, equal unlabored respirations, skin warm/dry/pink. Vital Signs: 19:39 BP 131 / 76; Pulse 116; Resp 18; Temp 98.5; Pulse Ox 100% on R/A; Weight 59.87 kg; mb9 Height 5 ft. 0 in. ; Pain 10/10; 20:00 BP 113 / 90; Pulse 101; Resp 17 S; Pulse Ox 100% on R/A; jw7 21:42 BP 128 / 91; Pulse 98; Resp 17; Temp 98.1; Pulse Ox 100% ; Pain 0/10; jj7 19:39 Body Mass Index 25.78 (59.87 kg, 152.4 cm) mb9 19:39 Pain Scale: Adult mb9 21:42 Pain Scale: Adult 7 ED Course: 19:28 Patient arrived in ED. ra3 19:34 Debora Kennedy FNP-C [facility] kb 19:34 Chip Clement MD is Attending Physician. kb 19:40 Triage completed. mb9 19:41 Arm band placed on. mb9 19:47 Evi Teresa, SID is Primary Nurse. jw7 19:50 Patient has correct armband on for positive identification. Bed in low position. Call [facility] light in reach. Provided Education on: Use of Call Light. 20:15 Initial lab(s) drawn, by me, sent to lab. Inserted saline lock: 20 gauge in right jw antecubital area, using aseptic technique. Blood collected. 20:19 CBC with Diff Sent. jw7 20:19 Basic Metabolic Panel Sent. jw7 21:42 IV discontinued, intact, bleeding controlled, No redness/swelling at site. Pressure jj7 dressing applied. 21:49 No provider procedures requiring assistance completed. jw7 Administered Medications: 20:19 Drug: NS 0.9% IV 1000 ml IV at 1000 ml once Route: IV; Rate: 1000 ml; Site: right jw7 antecubital; 21:50 Follow up: Response: No adverse reaction; IV Status: Completed infusion; IV Intake: jw7 1000ml 20:19 Drug: metoCLOPramide IVP 10 mg IVP once; over 1 to 2 minutes Route: IVP; Site: right jw7 antecubital; 21:49 Follow up: Response: No adverse reaction; Marked relief of symptoms jw7 20:19 Drug: diphenhydrAMINE IVP 12.5 mg IVP once Route: IVP; Site: right antecubital; jw7 21:49 Follow up: Response: No adverse reaction; Marked relief of symptoms jw7 20:19 Drug: Ketorolac IVP 15 mg IVP once Route: IVP; Site: right antecubital; jw7 21:49 Follow up: Response: No adverse reaction; Marked relief of symptoms; Pain is decreased jw7 Medication: 21:49 VIS not applicable for this client. jw7 Intake: 21:50 IV: 1000ml; Total: 1000ml. jw7 Outcome: 21:27 Discharge ordered by MD. marcelo 21:42 Discharged to home ambulatory, jj7 21:42 Condition: improved 21:42 Discharge instructions given to patient, Instructed on discharge instructions, Demonstrated understanding of instructions, 21:51 Patient left the ED. jw7 Signatures: Debora Kennedy FNP-C FNP-Evi Cohen RN RN jw7 Charito Garcia RN RN jjDivya Serrano RN RN mb9 Lilian Starkey ra3
--- NOTE | 2023-09-29 21:28 | EDPHYS ---
Physician Documentation [facility] Name: Jeffrey Diaz Age: 42 yrs Sex: Female : 1980 Arrival Date: 09/29/2023 Time: 19:24 Bed 15 Private MD: ED Physician Chip Clement HPI: 09/28 19:43 This 42 yrs old Black Female presents to ER via Ambulatory with complaints of Migraine kb x3days. 19:43 Pt is a 42 year old female who presents for migraine that started 3 days ago. States kb this is similar to previous migraines. Reports nausea, vomiting, photophobia. Checked her BGL just [employer] and it was 478. . 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 - Infectious Disease History:: Denies. - Social history:: Smoking status: Patient denies any tobacco usage or history of. ROS: 19:43 Constitutional: As per HPI kb Exam: 19:43 Constitutional: This is a well developed, well nourished patient who is awake, alert, kb and in no acute distress. Head/Face: Normocephalic, atraumatic. Eyes: Pupils equal round and reactive to light, extra-ocular motions intact. Lids and lashes normal. Conjunctiva and sclera are non-icteric and not injected. Cornea within normal limits. Periorbital areas with no swelling, redness, or edema. ENT: Moist Mucous membranes Cardiovascular: Regular rate Respiratory: Respirations even and unlabored. No increased work of breathing. Talking in full sentences Abdomen/GI: Soft, non-tender. No distention Skin: Warm, dry with normal turgor. Normal color. MS/ Extremity: Pulses equal, no cyanosis. Neurovascular intact. Full, normal range of motion. Neuro: Awake and alert, GCS 15, oriented to person, place, time, and situation. Moves all extremities. Normal gait. Vital Signs: 19:39 BP 131 / 76; Pulse 116; Resp 18; Temp 98.5; Pulse Ox 100% on R/A; Weight 59.87 kg; mb9 Height 5 ft. 0 in. ; Pain 10/10; 20:00 BP 113 / 90; Pulse 101; Resp 17 S; Pulse Ox 100% on R/A; jw7 21:42 BP 128 / 91; Pulse 98; Resp 17; Temp 98.1; Pulse Ox 100% ; Pain 0/10; jj7 19:39 Body Mass Index 25.78 (59.87 kg, 152.4 cm) mb9 19:39 Pain Scale: Adult mb9 21:42 Pain Scale: Adult jj7 MDM: 19:43 Patient medically screened. kb 19:44 Data reviewed: vital signs, nurses notes. kb 19:45 Differential diagnosis: migraine, tension headache, DKA, hyperglycemia, dehydration. kb 19:46 Care significantly affected by the following chronic conditions: Diabetes. kb 20:46 Counseling: I had a detailed discussion with the patient and/or guardian regarding the kb historical points, exam findings, and any diagnostic results supporting the discharge/admit diagnosis, lab results, the need for outpatient follow up, a family practitioner, to return to the emergency department if symptoms worsen or persist or if there are any questions or concerns that arise at home. 21:27 Response to treatment: the patient's symptoms have resolved after treatment. 09/28 19:45 Order name: CBC with Diff; Complete Time: 20:46 kb 09/28 19:45 Order name: Basic Metabolic Panel; Complete Time: 20:46 kb 09/28 19:45 Order name: IV Start; Complete Time: 20:19 kb Administered Medications: 20:19 Drug: NS 0.9% IV 1000 ml IV at 1000 ml once Route: IV; Rate: 1000 ml; Site: right [facility] antecubital; 21:50 Follow up: Response: No adverse reaction; IV Status: Completed infusion; IV Intake: jw7 1000ml 20:19 Drug: metoCLOPramide IVP 10 mg IVP once; over 1 to 2 minutes Route: IVP; Site: right [facility] antecubital; 21:49 Follow up: Response: No adverse reaction; Marked relief of symptoms [facility] 20:19 Drug: diphenhydrAMINE IVP 12.5 mg IVP once Route: IVP; Site: right antecubital; [facility] 21:49 Follow up: Response: No adverse reaction; Marked relief of symptoms jw7 20:19 Drug: Ketorolac IVP 15 mg IVP once Route: IVP; Site: right antecubital; jw7 21:49 Follow up: Response: No adverse reaction; Marked relief of symptoms; Pain is decreased jw7 Disposition Summary: 09/29/23 21:27 Discharge Ordered Notes: Location: Home kb Condition: Stable kb Diagnosis - Hyperglycemia, unspecified kb - Migraine without aura, not intractable kb Followup: kb - With: Emergency Department - When: As needed - Reason: Worsening of condition Followup: kb - With: Private Physician - When: 2 - 3 days - Reason: Recheck today's complaints, Continuance of care, Re-evaluation by your physician Discharge Instructions: - Discharge Summary Sheet kb - Migraine Headache, [id number] kb - Hyperglycemia, [id number] kb Forms: - Medication Reconciliation Form kb - Antibiotic Education kb - Prescription Opioid Use kb - Patient Portal Instructions kb - Leadership Thank You Letter kb Signatures: Dispatcher [employer] Debora Jones, DONG-C IRRIGATION FOREMAN-Evi Cohen, RN RN jw7 Divya Calderon RN RN mb9
[2023-09-29 22:14] VITALS: BP 128/91; TEMP 98.1; O2SAT 100
== END 2023-09-29 21:51 | disposition home or self-care (01) ==
LOC: ER 19:24
DX: E11.65 Type 2 diabetes mellitus with hyperglycemia (principal); G43.009 Migraine without aura, not intractable, without status migrainosus
CPT/HCPCS: 96361; 85025; 80048; 36415; 96375; 96374; 99284; J2765; J1200; J7030

== ENCOUNTER 2024-04-27 20:06 | Emergency (ER) | payer BC, SELFPAY ==
[2024-04-27] MEDS ORDERED: KETOROLAC 30 MG/ML INJ ONE (20:11)
[2024-04-27] MEDS ORDERED: NA CHLORIDE 0.9% 1,000 ML ONE ×2 (20:23→21:42)
[2024-04-27 20:25] LABS: Absolute Eosinophils 0.1 K/uL (0-0.5); Absolute Lymphocytes (CBC) 2.9 K/uL (0.7-4.9); Absolute Monocytes 0.4 K/uL (0.1-1.3); Absolute Neutrophil 3.1 K/uL (1.8-8.0); Basophils % 0.5 % (0-1.3); Hematocrit 41.4 % (36.0-45.0); Hemoglobin 13.6 g/dL (12.0-15.0); Lymphocytes % 43.7 % (15.3-44.8); MCH 29.7 pg (27.0-35.0); MCHC 32.8 g/dL (32.0-36.0); MCV 90.4 fL (80-100); MPV 7.9 fL (7.6-11.3); Monocytes % 5.5 % (3.3-12.3); Neutrophils % 48.3 % (41.7-73.7); Nucleated Red Blood Cells % 0.1 % (0-0); Platelets 283 thou/uL (152-406); RBC Red Blood Cell Count 4.58 M/uL (3.86-4.86); Red Cell Distribution Width 13.1 % (12.1-15.2)
[2024-04-27 20:46] LABS: Specific Gravity > 1.030 (1.005-1.030)
[2024-04-27 20:47] LABS: Specific Gravity > 1.030 (1.005-1.030); Sqamous Epithelial <5 /HPF (None Seen); Urine Bacteria <20 /HPF (<20); Urine Bilirubin NEGATIVE (Negative); Urine Blood Negative (Negative); Urine Clarity Clear (Clear); Urine Color Colorless (Yellow); Urine Culture Reflex Order NOT NEEDED; Urine Glucose 4+ (Over) (Negative); Urine Ketones NEGATIVE (Negative); Urine Microscopic Reflex YN ORDER UMIC; Urine Nitrite NEGATIVE (Negative); Urine Protein NEGATIVE (Negative); Urine RBC <5 /HPF (None Seen); Urine Urobilinogen Normal (Normal); Urine WBC <5 /HPF (<5); Urine pH 5.5 (5.0-7.0)
[2024-04-27 20:50] LABS: ALT/SGPT 22 U/L (13-56); AST/SGOT < 10 U/L (15-37); Albumin 3.8 g/dL (3.4-5.0); Alkaline Phosphatase 123 U/L (45-117); Anion Gap 10.2 mEq/L (5.0-15.0); BUN Blood Urea Nitrogen 11 mg/dL (7-18); Bicarbonate 25 mEq/L (21-32); Bilirubin Total 0.3 mg/dL (0.2-1.0); Glomerular Filtration Rate 82 ml/min (=/>90); Lipase 38 U/L (13-75); Potassium 4.2 mEq/L (3.5-5.1); Protein, Total 7.8 g/dL (6.4-8.2); Sodium Level 132 mEq/L (136-145)
[2024-04-27 20:53] LABS: Glucose Level 495 mg/dL (74-106)
--- NOTE | 2024-04-27 21:14 | RAD REPORT ---
EXAMINATION: ONE VIEW CHEST XR CLINICAL INDICATION: CHEST PAIN TECHNIQUE: Frontal chest projection is submitted. Examination is limited by patient positioning and t echnique. COMPARISON: 08/15/2023 FINDINGS: The lungs are well inflated and clear. The heart is normal in size. No displaced fractures identified . IMPRESSION: No acute intrathoracic abnormalities.
[2024-04-27] MEDS ORDERED: METOCLOPRAMIDE 10 MG/2mL INJ ONE (21:40)
[2024-04-27] MEDS ORDERED: DIPHENHYDRAMINE 50 MG/ML VIAL ONE (21:40)
[2024-04-27] MEDS ORDERED: ACETAMINOPHEN 500 MG TAB ONE (21:40)
[2024-04-27] MEDS ORDERED: INSULIN REGULAR (HUMAN) 100 UNIT/ML ONE (21:41)
[2024-04-27 22:32] LABS: Percent Reticulocyte Count 1.23 % (0.4-2.05); RBC Red Blood Cell Count 4.61 M/uL (3.86-4.86)
[2024-04-27] MEDS ORDERED: MORPHINE 4 MG/ML SYR ONE (23:51)
--- NOTE | 2024-04-28 00:21 | EDPHYS ---
Physician Documentation [facility] Name: Jeffrey Diaz Age: 43 yrs Sex: Female : 1980 Arrival Date: 04/27/2024 Time: 20:06 Bed 6 Private MD: ED Physician Raman Barroso HPI: 04/27 20:07 This 43 yrs old Black Female presents to ER via Unassigned with complaints of LOW EXT sp4 PAIN. 22:17 43-year-old female presents with complaint of lower extremity pain. Patient has history sp4 of sickle cell trait, anxiety, diabetes mellitus, PTSD, migraine, hypertensive disorder. Patient reportedly was apprehended by police and developed diffuse pain particularly in her arms or legs. Patient's blood sugar was recorded as 389 by EMS. Patient states she has been off her metformin for several days.. 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 It has been more than one year since last vaccine. - Infectious Disease History:: Denies. - Social history:: Smoking status: Patient reports the use of cigarette tobacco products, smokes two packs cigarettes per day. - Family history:: not pertinent. ROS: 22:17 Constitutional: Negative for fever, chills, and weight loss, positive for bilateral sp4 pain of extremities 22:17 All other systems are negative, Exam: 22:17 Constitutional: This is a well developed, well nourished patient who is awake, alert, sp4 and in no acute distress. Head/Face: Normocephalic, atraumatic. Eyes: Pupils equal round and reactive to light, extra-ocular motions intact. Lids and lashes normal. Conjunctiva and sclera are not injected. Cornea within normal limits. Periorbital areas with no swelling, redness, or edema. ENT: Nares patent. No nasal discharge, no septal abnormalities noted. Tympanic membranes are normal and external auditory canals are clear. Oropharynx with no redness, swelling, or masses, exudates, or evidence of obstruction, uvula midline. Mucous membranes moist. Neck: Trachea midline, no thyromegaly or masses palpated, and no cervical lymphadenopathy. Supple, full range of motion without nuchal rigidity, or vertebral point tenderness. Chest/axilla: Normal chest wall appearance and motion. Nontender with no deformity. No lesions are appreciated. Cardiovascular: Regular rate and rhythm with a normal S1 and S2. No gallops, murmurs, or rubs. Normal PMI, no JVD. No pulse deficits. Respiratory: Lungs have equal breath sounds bilaterally, clear to auscultation and percussion. No rales, rhonchi or wheezes noted. No increased work of breathing, no retractions or nasal flaring. Abdomen/GI: Soft, with normal bowel sounds. No distension or tympany. No guarding or rebound. No evidence of tenderness throughout. Back: No spinal tenderness. No costovertebral tenderness. Skin: Warm, dry with normal turgor. Normal color with no rashes, no lesions, and no evidence of cellulitis. MS/ Extremity: Pulses equal, no cyanosis. Neurovascular intact. Full, normal range of motion. Neuro: Awake and alert, GCS 15, oriented to person, place, time, and situation. Cranial nerves II-XII grossly intact. Motor strength 5/5 in all extremities. Sensory grossly intact. Psych: Awake, alert, with orientation to person, place and time. Behavior, mood, and affect are within normal limits Vital Signs: 20:08 BP 131 / 84; Pulse 120; Resp 16; Temp 98.4; Pulse Ox 100% on R/A; Weight 59.87 kg; dd2 Height 5 ft. 0 in. ; Pain /10; 04/28 00:15 BP 119 / 80; Pulse 91; Resp 16; Pulse Ox 100% on R/A; ay 04/27 20:08 Body Mass Index 25.78 (59.87 kg, 152.4 cm) dd2 04/27 20:08 Pain Scale: Adult dd2 [place] Coma Score: 04/27 20:28 Eye Response: spontaneous(4). Motor Response: obeys commands(6). Verbal Response: ay oriented(5). Total: 15. 22:17 Eye Response: spontaneous(4). Motor Response: obeys commands(6). Verbal Response: sp4 oriented(5). Total: 15. MDM: 20:12 Medical Screening Exam initiated sp4 21:28 ED course: EXAMINATION: ONE VIEW CHEST XR CLINICAL INDICATION: CHEST PAIN TECHNIQUE: sp4 Frontal chest projection is submitted. Examination is limited by patient positioning and technique. COMPARISON: 08/15/2023 FINDINGS: The lungs are well inflated and clear. The heart is normal in size. No displaced fractures identified. IMPRESSION: No acute intrathoracic abnormalities. . 22:19 Differential Diagnosis altered mental status, sepsis, flu, Diabetic complications . sp4 Data reviewed: vital signs, nurses notes. Consideration of Admission/Observation Escalation of care including admission/observation considered. ED course: improved overall . 04/27 20:08 Order name: CBC with Diff; Complete Time: 21:25 [facility] 04/27 20:08 Order name: CMP; Complete Time: 21:25 [facility] 04/27 20:08 Order name: Lipase; Complete Time: 21:25 [facility] 04/27 20:08 Order name: Test, Urine; Complete Time: 21:25 [facility] 04/27 20:08 Order name: Urinalysis w/ reflexes; Complete Time: 21:25 [facility] 04/27 20:11 Order name: Retic Count; Complete Time: 22:47 4 04/27 20:11 Order name: LDH; Complete Time: 23:20 [facility] 04/27 20:14 Order name: Lactate w/ 2H reflex if indic.; Complete Time: 21:48 [facility] 04/27 21:45 Order name: Ghost Lactate-NO COLLECT Timer; Complete Time: 00:20 [facility] 04/27 23:42 Order name: Glucose, Ancillary Testing [facility] 04/27 20:12 Order name: Chest Single View XRAY; Complete Time: 21:25 [facility] 04/27 20:08 Order name: IV Saline Lock; Complete Time: 21:07 [facility] 04/27 20:08 Order name: Labs collected and sent; Complete Time: 21: [facility] 04/27 21:49 Order name: Accucheck Blood Glucose [facility] 04/27 23:20 Order name: Accucheck Blood Glucose; Complete Time: 23:56 sp4 Administered Medications: 20:13 Drug: Ketorolac IVP 30 mg IVP once Route: IVP; Site: right antecubital; ay 04/28 00:41 Follow up: Response: No adverse reaction ay 04/27 20:28 Drug: NS 0.9% IV 1000 ml IV at 1 bolus Per protocol; to be given as a bolus over 60 ay minutes Route: IV; Rate: 1 bolus; Site: right antecubital; 04/28 00:41 Follow up: IV Status: Completed infusion; IV Intake: 1000ml ay 04/27 21:52 Drug: Acetaminophen PO 1000 mg PO once Route: PO; ay 23:57 Follow up: Response: No adverse reaction ay 21:52 Drug: Insulin Regular Human IVP 10 units IVP once {Co-Signature: dd2 (MAYUR WHEELER RN).} Route: IVP; Site: right antecubital; 23:57 Follow up: Response: No adverse reaction ay 21:52 Drug: diphenhydrAMINE IVP 25 mg IVP once Route: IVP; Site: right antecubital; ay 23:57 Follow up: Response: No adverse reaction ay 21:52 Drug: metoCLOPramide IVP 10 mg IVP once; over 1 to 2 minutes Route: IVP; Site: right ay antecubital; 23:56 Follow up: Response: No adverse reaction ay 23:00 Drug: NS 0.9% IV 1000 ml IV at 1000 ml once; to be given as a bolus over 60 minutes ay Route: IV; Rate: 1000 ml; Site: right antecubital; 04/28 00:40 Follow up: IV Status: Completed infusion; IV Intake: 1000ml ay 04/27 23:55 Drug: morphine IVP or IV 4 mg IVP once over 4 mins Route: IVP; Infused Over: 4 mins; ay Site: right antecubital; 04/28 00:40 Follow up: Response: No adverse reaction ay Disposition Summary: 04/28/24 00:21 Discharge Ordered Notes: Location: Home sp4 Problem: new sp4 Symptoms: have improved sp4 Condition: Stable sp4 Diagnosis - Type 2 diabetes mellitus with hyperglycemia sp4 - Acute headache, acute generalized pain, uncontrolled diabetes mellitus type 2, sp4 Moderate Dehydration Followup: sp4 - With: Private Physician - When: 7 - 10 days - Reason: Recheck today's complaints Discharge Instructions: - Discharge Summary Sheet sp4 - Hyperglycemia sp4 Forms: - Patient Portal Instructions sp4 Prescriptions: - Fioricet 50-300-40 mg Oral capsule - take 1 capsule ORAL route every 8 hours PRN headache; 30 capsule; Refills: 0, sp4 Product Selection Permitted - sumatriptan succinate 25 mg Oral tablet - take 1 tablet ORAL route every 6 hours PRN Migraine; 30 tablet; Refills: 0, sp4 Product Selection Permitted - Metformin 850 mg Oral tablet - take 1 tablet ORAL route 2 times per day with morning and evening meals; 180 sp4 tablet; Refills: 0, Product Selection Permitted Signatures: Dispatcher [employer] Raman Velasquez MD MD sp4 MAYUR WHEELER RN RN dd2 Muna Obregon RN RN ay MAYUR WHEELER RN dd2
--- NOTE | 2024-04-28 00:21 | ER ---
Nurse's Notes [facility] Name: Jeffrey Diaz Age: 43 yrs Sex: Female : 1980 Arrival Date: 04/27/2024 Time: 20:06 Bed 6 Private MD: Diagnosis: Type 2 diabetes mellitus with hyperglycemia;Acute headache, acute generalized pain, uncontrolled diabetes mellitus type 2, Moderate Dehydration Presentation: 04/27 20:08 Chief complaint: EMS states: TONED OUT FOR PAIN TO SHARRI LEGS. EMS REPORTS PT WAS BEING dd2 ARRESTED AND BEGAN SHARRI LEG CRAMPING, PAIN AND DIZZINESS. PT REPORTS HX OF SICKLE CELL, DM AND NOT TAKING INSULIN OR PO MEDS. Coronavirus screen: At this time, the client does not indicate any symptoms associated with coronavirus-19. Ebola Screen: No symptoms or risks identified at this time. Initial Sepsis Screen: Does the patient meet any 2 criteria? No. Patient's initial sepsis screen is negative. Does the patient have a suspected source of infection? No. Patient's initial sepsis screen is negative. Risk Assessment: Do you want to hurt yourself or someone else? Patient reports no desire to harm self or others. Onset of symptoms was April 27, 2024. Care prior to arrival: Glucose check: 389. 20:08 Method Of Arrival: EMS: [facility] dd2 20:08 Acuity: NADER 3 dd2 Triage Assessment: 20:12 General: Appears in no apparent distress. uncomfortable, Behavior is calm, cooperative, dd2 appropriate for age. Pain: Complains of pain in right leg and left leg Pain does not radiate. Pain currently is 9 out of 10 on a pain scale. EENT: No deficits noted. No signs and/or symptoms were reported regarding the EENT system. TOP CAGER: 20:12 LMP N/A - control method, Not dd2 Historical: - Allergies: 20:12 Iodine; dd2 - PMHx: 20:12 Anxiety; diabetes mellitus; Migraines; PTSD; Hypertensive disorder; dd2 - PSHx: 20:12 Total abdominal hysterectomy; dd2 - Immunization history:: Adult Immunizations up to date, Flu vaccine is not up to date. It has been more than one year since last vaccine. - Infectious Disease History:: Denies. - Social history:: Smoking status: Patient reports the use of cigarette tobacco products, smokes two packs cigarettes per day. - Family history:: not pertinent. Screenin:28 [facility] ED Fall Risk Assessment (Adult) History of falling in the last 3 months, ay including since admission Yes- single mechanical fall (1 pt) Confusion or Disorientation No (0 pts) Intoxicated or Sedated No (0 pts) Impaired Gait No (0 pts) Mobility Assist Device Used No (0 pt) Altered Elimination No (0 pt) Score/Fall Risk Level 0 - 2 = Low Risk Oriented to surroundings, Maintained a safe environment, Educated pt \T\ family on fall prevention, incl call for assistance when getting out of bed. Abuse screen: Denies threats or abuse. Denies injuries from another. Nutritional screening: No deficits noted. Tuberculosis screening: No symptoms or risk factors identified. Assessment: 20:28 General: Appears in no apparent distress. uncomfortable, Behavior is cooperative, ay restless. Pain: Complains of pain in Bilateral upper and lower extremities Pain currently is 7 out of 10 on a pain scale. Quality of pain is described as crampy, Noted to be restless. Neuro: Level of Consciousness is awake, alert, obeys commands, Oriented to person, place, time, situation, Speech is normal. Cardiovascular: Capillary refill < 3 seconds. Respiratory: Airway is patent Respiratory effort is even, unlabored, Respiratory pattern is regular, symmetrical. GI: Abdomen is flat. : No signs and/or symptoms were reported regarding the genitourinary system. EENT: No signs and/or symptoms were reported regarding the EENT system. Derm: No signs and/or symptoms reported regarding the dermatologic system. Musculoskeletal: No signs and/or symptoms reported regarding the musculoskeletal system. Vital Signs: 20:08 BP 131 / 84; Pulse 120; Resp 16; Temp 98.4; Pulse Ox 100% on R/A; Weight 59.87 kg; dd2 Height 5 ft. 0 in. ; Pain 9/10; 04/28 00:15 BP 119 / 80; Pulse 91; Resp 16; Pulse Ox 100% on R/A; ay 04/27 20:08 Body Mass Index 25.78 (59.87 kg, 152.4 cm) dd2 04/27 20:08 Pain Scale: Adult dd2 [place] Coma Score: 04/27 20:28 Eye Response: spontaneous(4). Motor Response: obeys commands(6). Verbal Response: ay oriented(5). Total: 15. 22:17 Eye Response: spontaneous(4). Motor Response: obeys commands(6). Verbal Response: sp4 oriented(5). Total: 15. ED Course: 20:06 Patient arrived in ED. [id number] 20:07 Raman Barroso MD is Attending Physician. sp4 20:07 MAYUR WHEELER RN is Primary Nurse. dd2 20:12 Triage completed. dd2 20:12 Arm band placed on right wrist. Patient placed in an exam room, on a stretcher, on dd2 pulse oximetry. 20:13 Inserted saline lock: 20 gauge in right antecubital area, using aseptic technique. sa1 Blood collected. Flushed with 10 mL NS. 20:15 Initial lab(s) drawn, by me, sent to lab. sa1 20:25 Urine collected: clean catch specimen, clear. sa1 20:28 Patient has correct armband on for positive identification. Bed in low position. Call ay light in reach. Side rails up X2. Adult w/ patient. Provided Education on: plan of care. 21:08 Chest Single View XRAY In Process Unspecified. EDMS 04/28 00:38 No provider procedures requiring assistance completed. IV discontinued, intact, ay bleeding controlled, No redness/swelling at site. Pressure dressing applied. Administered Medications: 04/27 20:13 Drug: Ketorolac IVP 30 mg IVP once Route: IVP; Site: right antecubital; ay 04/28 00:41 Follow up: Response: No adverse reaction ay 04/27 20:28 Drug: NS 0.9% IV 1000 ml IV at 1 bolus Per protocol; to be given as a bolus over 60 ay minutes Route: IV; Rate: 1 bolus; Site: right antecubital; 04/28 00:41 Follow up: IV Status: Completed infusion; IV Intake: 1000ml ay 04/27 21:52 Drug: Acetaminophen PO 1000 mg PO once Route: PO; ay 23:57 Follow up: Response: No adverse reaction ay 21:52 Drug: Insulin Regular Human IVP 10 units IVP once {Co-Signature: dd2 (MAYUR WHEELER RN).} Route: IVP; Site: right antecubital; 23:57 Follow up: Response: No adverse reaction ay 21:52 Drug: diphenhydrAMINE IVP 25 mg IVP once Route: IVP; Site: right antecubital; ay 23:57 Follow up: Response: No adverse reaction ay 21:52 Drug: metoCLOPramide IVP 10 mg IVP once; over 1 to 2 minutes Route: IVP; Site: right ay antecubital; 23:56 Follow up: Response: No adverse reaction ay 23:00 Drug: NS 0.9% IV 1000 ml IV at 1000 ml once; to be given as a bolus over 60 minutes ay Route: IV; Rate: 1000 ml; Site: right antecubital; 04/28 00:40 Follow up: IV Status: Completed infusion; IV Intake: 1000ml ay 04/27 23:55 Drug: morphine IVP or IV 4 mg IVP once over 4 mins Route: IVP; Infused Over: 4 mins; ay Site: right antecubital; 04/28 00:40 Follow up: Response: No adverse reaction ay Medication: 04/27 20:28 VIS not applicable for this client. ay Intake: 04/28 00:40 IV: 1000ml; Total: 1000ml. ay 00:41 IV: 1000ml; Total: 2000ml. ay Outcome: 00:21 Discharge ordered by MD. suero 00:38 Discharged to home ambulatory, ay 00:38 Condition: stable 00:38 Discharge instructions given to patient, Instructed on discharge instructions, follow up and referral plans. medication usage, Demonstrated understanding of instructions, follow-up care, medications, Prescriptions given X 3, 00:39 Patient left the ED. ay Signatures: Dispatcher [employer] EDMS Teressa Chatterjee Sergey, MD MD sp4 Sultan dolly Mehta DIANA RN RN dd2 Muna Obregon RN RN ay DAVIS, DIANA RN dd2
[2024-04-28 00:54] VITALS: TEMP 98.4; O2SAT 100
[2024-04-28 01:04] VITALS: BP 119/80
== END 2024-04-28 00:39 | disposition home or self-care (01) ==
LOC: ER 20:06
DX: E11.65 Type 2 diabetes mellitus with hyperglycemia (principal); E86.0 Dehydration; R52 Pain, unspecified; I10 Essential (primary) hypertension
CPT/HCPCS: 96361; 85025; 81001; 36415; 83615; 81025; 85044; 82947; 83605; 83690; 80053; 71045; 96375; 96374; 99284; J2765; J1200; J7030 ×2

== ENCOUNTER 2024-07-26 19:42 | Emergency (ER) | payer BC, OTHER, SELFPAY ==
--- OUTSIDE RECORDS SUMMARY | 2024-07-26 19:48 | XMS REPORT | Continuity of Care Document ---
Author Name Unknown Address [address] [facility] [address] [place] [address] [facility] Address [address] [facility] [place] [address] Care Team Providers Care Hogshead Hooper Name Role Phone Pcp, Pcp Primary Care Physician Unavailab Maryana Valencia Attending Clinician Unavailab FREDDY Wu Attending Clinician Unava illiborio Michaud, Generic Provider Attending Clinician Unavailable LEONEL WINCHESTER Attending Clinician Unavail able LEONEL WINCHESTER Attending Clinician Unavail Leonel Ramirez MD Attending Clinician KIRILL MAGANA Attending Clinician Teresa martinez GC_[email or web address]_S Attending Clinician Unavaila SALVADOR Atkinson Attending Clinician Unavaila MADDIE Sood Attending Clinician Unavailable Doctor Unassigned, [place] Attending Clinician U ETHAN Escobar Attending Clinician Unavailable Ethan Calhoun MD Attending Clinician [phone] Nova Hinojosa MD Attending Clinician [phone] NOVA HINOJOSA Attending Clinician Unavailabl e UNKNOWN, ATTENDING Attending Clinician Unavailab HENRRY Suero Attending Clinician Unavailable RADIOLOGY Attending Clinician Unavailable Tutu London MD Attending Clinician [phone] LEONEL WINCHESTER Admitting Clinician Unavail able [email or web address]_S Admitting Clinician UnavailETHAN Thibodeaux Admitting Clinician Unavailable SACHA ABDI Admitting Clinician Beth goldstein Payers Payer Name Policy Type Policy Number Effective Date Expirati on Date Source [employer] COMM [id number] 2022 00:00:00 Problems Condition Name Condition Details Condition Category Status Onset Date Resolution Date Last Treatment Date Treating Clinician Comments Source Musculoske letal pain (finding) Musculoske letal pain (finding) Active 04/13/2023 Diagnosis 04/15/2023 [facility] Diagnosis Active 2022-04 00:00: 00 2023-04-15 22:16:46 Angel Jones FALL, LOWER BACK PAIN FALL, LOWER BACK PAIN Active 04/12/2023 [facility] Diagnosis Active 2022-04 19:30: 00 2023-04-13 02:22:00 Angel Jones MIGRAINE MIGRAINE Active 12/31/2022 [facility] Diagnosis Active 12-31 00:00: 00 2023-01-01 04:51:00 Angel Jones Dyspepsia Dyspepsia Disease Active 2018-04 00:00: 00 [facility] Intramural and submucous leiomyoma of uterus Intramural and submucous leiomyoma of uterus Disease Active 2018-04 00:00: 00 [facility] Abdominal pain, generalize d Abdominal pain, generalize d Disease Active 2018-04 00:00: 00 [facility] Pain pelvic Pain pelvic Disease Active 2018-04 00:00: 00 [facility] Nausea and vomiting in adult Nausea and vomiting in adult Disease Active 2018-04 00:00: 00 [facility] Chronic female pelvic pain Chronic female pelvic pain Disease Active 2018-04 00:00: 00 [facility] 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 Longest migraine 1 week. With nausea/vo miting and photophob ia. Diagnosed as teen [facility] LOWER BACK PAIN LOWER BACK PAIN Active 01/03/2017 [facility] Diagnosis Active 01-03 00:00: 00 2018-07-01 14:13:00 Angel Jones Obesity (BMI 30-39.9) Obesity (BMI 30-39.9) Disease Active - 00:00: 00 [facility] Headache (finding) Headache (finding) Active Problem 04/15/2023 [facility] Problem Active 2023-04-15 22:16:46 Angel Jones Sickle cell trait (disorder) Sickle cell trait (disorder) Active Problem 04/15/2023 [facility] Problem Active 2023-04-15 22:16:46 Angel Jones Diabetes mellitus type 2 (disorder) Diabetes mellitus type 2 (disorder) Active Problem 04/15/2023 [facility] Problem Active 2023-04-15 22:16:46 Angel Jones Fall on same level from slipping, tripping and stumbling without subsequent striking against object, initial encounter Fall on same level from slipping, tripping and stumbling without subsequent striking against object, initial encounter 09/05/2017 [facility] Problem 2017-09-05 15:25:21 Angel Jones History of Past Illness Condition Name Condition Details Condition Category Status Onset Date Resolution Date Last Treatment Date Treating Clinician Comments Source Muscle pain (finding) Muscle pain (finding) 04/13/2023 Diagnosis 04/15/2023 [facility] Diagnosis 2022- 2- 07:52: 00 2023-04-15 22:16:46 2023-04-15 22:16:46 Angel Jones Injury of head (disorder) Injury of head (disorder) 04/13/2023 Diagnosis 04/15/2023 [facility] Diagnosis 2022- 2- 07:51: 00 2023-04-15 22:16:46 2023-04-15 22:16:46 Angel Jones Fall (finding) Fall (finding) 04/13/2023 Diagnosis 04/15/2023 [facility] Diagnosis 2022-04 07:51: 00 2023-04-15 22:16:46 2023-04-15 22:16:46 Angel Jones Headache, unspecifie d Headache, unspecifie d 01/01/2023 01/06/2023 [facility] Problem - 11:06: 00 2023-01-06 14:41:47 2023-01-06 14:41:47 Angel Jones Radiculopa thy, lumbar region Radiculopa thy, lumbar region 06/05/2017 09/05/2017 [facility] 2017- 2-15 04:25: 58 2017-09-05 15:25:21 2017-09-05 15:25:21 Angel Jones Allergies, Adverse Reactions, Alerts Allergy Name Allergy Type Status Severity Reaction(s) Onset Date Inactive Date Treating Clinician Comments Source Iodine Propensi ty to adverse reaction s Active 2023-04 00:00: 00 Angel Jones Epic Iodine Propensi ty to adverse reaction s Active Anaphylaxis 12-26 00:00: 00 [facility] Penicill ins Propensi ty to adverse reaction s Active Rash 12-26 00:00: 00 [facility] Penicill ins Propensi ty to adverse reaction s Active Rash 12-26 00:00: 00 [facility] IODINE DRUG INGREDI Active Anaphylaxis 12-26 00:00: 00 [facility] PENICILL INS Drug Class Active Rash 12-26 00:00: 00 [facility] iodine iodine Active Angel Jones Social History Social Habit Start Date Stop Date Quantity Comments Source Gender identity 2023-07-13 08:08:13 Identifies as female gender (finding) [facility] ASSERTION Possible [facility] [place] Sexual orientation [facility] Exposure to SARS-CoV-2 (event) Not sure [facility] History of Social function 2024-04-13 00:00:00 2024-04-13 00:00:00 [place] Alcoholic beverage intake 2019-02-26 00:00:00 2019-02-26 00:00:00 Current non-drinker of alcohol (finding) [facility] Alcohol intake 2019-02-26 00:00:00 2019-02-26 00:00:00 Current non-drinker of alcohol (finding) [facility] Tobacco use and exposure 2017-10-23 00:00:00 2017-10-23 00:00:00 Former smokeless tobacco user [facility] Sex assigned at 1980 00:00:00 1980 00:00:00 [facility] Smoking Status Start Date Stop Date Source Never smoked tobacco Angel Jones [facility] Social History [facility] no Medications Ordered Medication Name Filled Medication Name Start Date Stop Date Current Medication? Ordering Clinician Indication Dosage Frequency Signature (SIG) Comments Components Source acetaminoph en (TYLENOL) tablet 650 mg 2023-04 20:00: 00 03-17 20:05 :00 No 650mg 650 mg, Oral, ONCE, 1 dose, On Fri03/17/24 at 1400, MIK [facility] ketorolac (TORADOL) injection 30 mg 2023-04 18:45: 00 03-17 18:21 :00 No 30mg 30 mg, Slow IV Push, ONCE, 1 dose, On Fri03/17/24 at 1245, Routine [facility] ketOROLAC 10 mg oral tablet 2022-04 07:52: 00 Yes 10 mg = 1 tab, PO, Q6H, X 5 day, # 20 tab, 0 Refill(s) Angel Jones ondansetron 4 mg oral tablet, disintegrat ing 2022-04 07:52: 00 Yes 4 mg = 1 tab, PO, TID, PRN Nausea / Vomiting, Dissolve tab under tongue, X 3 day, # 10 tab, 0 Refill(s) Angel Jones tizanidine 2 mg oral tablet 2022-04 07:52: 00 Yes 2 mg = 1 tab, PO, Q8H, # 15 tab, 0 Refill(s) Angel Jones ondansetron 4 mg oral tablet, disintegrat ing 9-13 11:11: 00 No 4 mg = 1 tab, PO, TID, PRN Nausea / Vomiting, Dissolve tab under tongue, X 3 day, # 10 tab, 0 Refill(s) Angel sami Jones ketOROLAC 10 mg oral tablet 01-01 11:07: 00 No 10 mg = 1 tab, PO, Q6H, X 5 day, # 20 tab, 0 Refill(s) Peeweetarun sami Jones metoclopram jed 10 mg oral tablet 01-01 11:07: 00 Yes 10 mg = 1 tab, PO, QID-Before Meals, X 7 day, # 28 tab, 0 Refill(s) Angel sami Jones Fioricet 300 mg-50 mg-40 mg oral capsule 01-01 11:07: 00 No 1 cap, PO, Q4H, PRN PRN Headache, Do not exceed 6 capsules in 24 hours, X 5 day, # 30 cap, 0 Refill(s) Angel Jones metoclopram jed 01-01 09:14: 00 No Notes: (Same as: Reglan) Angel Jones diphenhydrA MINE 01-01 09:14: 00 No Notes: (Same as: Benadryl) Angel oJnes morphine Sulfate 01-01 09:14: 00 No Notes: (Same as:MORPhin e Sulfate) Angel Jones ketOROLAC 30 mg/mL injectable solution 01-01 07:00: 00 No 4 days MEDICATION WASTE Product Size: 30 mg Product Wasted: ___ mg Angel Jones [place] 5/325 oral tablet 01-01 07:00: 00 No Notes: (Same as: [place] 325/5) Do not exceed 4gm/day of acetaminop hen. Angel Jones NS (Bolus) IV 01-01 07:00: 00 No 1,000 mL, 1,000 ml/hr, Infuse Over: 1 hr, Route: IV, 1,000, Drug form: INJ, ONCE, Priority: STAT, Dosing Weight 60 kg, Start date: 01/01/23 2:00:00 CDT, Stop date: 01/01/23 2:00:00 CDT, 0 Angel Jones ondansetron 01-01 07:00: 00 No Notes: (Same as: Zofran) MEDICATION WASTE Product Size: 4 mg Product Wasted: ___ mg Angel Jones iohexol (OMNIPAQUE 350 BULK-150 mL) injection 111 mL 12-20 14:06: 00 12-20 13:57 :00 No 111mL 111 mL, Intravenou s, ONCE, 1 dose, Fri12/21/19 at 0915, Routine [facility] iohexol (OMNIPAQUE 350 BULK) 25 mL 12-20 13:15: 00 12-20 13:04 :00 No 25mL 25 mL, Oral, ONCE, 1 dose, Fri12/21/19 at 0815, Routine [facility] HYDROcodone -acetaminop hen (NORCO) 10-325 mg tablet 1 tablet 12-14 17:45: 00 12-14 17:35 :00 No 1{tbl} 1 tablet, Oral, ONCE, 1 dose, Fri12/14/18 at 1245, MIK [facility] ondansetron (ZOFRAN-ODT ) disintegrat ing tablet 4 mg 12-14 17:45: 00 12-14 17:35 :00 No 4mg 4 mg, Oral, ONCE, 1 dose, Fri12/14/18 at 1245, Routine [facility] gabapentin 600 mg tablet 10-23 16:53: 46 Yes 600mg Take 600 mg by mouth 2 (two) times daily. [facility] rizatriptan (MAXALT) 5 mg tablet 10-23 00:00: 00 Yes [id number] 5mg Take 1 tablet by mouth as needed for Migraine. May repeat in 2 hours if needed, Max 2 pills/24 hour period [facility] acetaminoph en-codeine 300-30 mg tablet 10-23 00:00: 00 Yes [id number] 1{tbl} Take 1 tablet by mouth every 6 (six) hours as needed for Pain (scale 4-6). [facility] traZODONE 100 mg tablet 4-25 00:00: 00 Yes 100mg Take 100 mg by mouth at bedtime. [facility] Acetaminoph en 300 MG / Codeine Phosphate 30 MG Oral Tablet [Tylenol with Codeine #3] 05-30 23:58: 00 No 1 tab, PO, Q6H, PRN Pain, X 7 day, # 16 tab, 0 Refill(s) Angel Jones baclofen 10 mg oral tablet 05-30 23:57: 00 Yes 10 mg = 1 tab, PO, TID, PRN Spasms, # 24 tab, 0 Refill(s) Angel Jones ibuprofen 800 mg oral tablet 05-30 23:47: 00 No 800 mg = 1 tab, PO, Q8H, PRN Pain, Take with food, X 8 day, # 28 tab, 0 Refill(s) Angel Jones Dexamethaso ne 05-30 23:20: 00 No 10 mg, Route: IM, ONCE, Dosing Weight 77.273, kg, Priority: STAT, Start date: 05/30/17 17:20:00 [employer] 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, Stop date: 05/30/17 17:20:00 FI[employer] PROTE[employer] 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 Angel Jones Diazepam 05-30 23:18: 00 No 5 mg, Route: PO, ONCE, Dosing Weight 77.273, kg, Priority: STAT, Start date: 05/30/17 17:18:00 FIRE PROTE[employer] 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, Stop date: 05/30/17 17:18:00 FI[employer] PROTE[employer] 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 Angel Jones ketOROLAC 30 mg/mL injectable solution 05-30 23:17: 00 No 30 mg, Route: IM, Drug form: INJ, ONCE, Dosing Weight 77.273, kg, Priority: STAT, Start date: 05/30/17 17:17:00 FI[employer] PROTE[employer] 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, Stop date: 05/30/17 17:17:00 FIRE PROTECTION 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 Angel Jones No known medications No Un eli it[facility] No known medications No [facility] el[facility] it[facility] No known medications No Un eli it[facility] No known medications No Un eli it[facility] No known medications No Un eli it[facility] No known medications No [facility] Immunizations Ordered Immunization Name Filled Immunization Name Date Status Comments Source SARS-COV-2 COVID-19 MODERNA 12+ YRS VACCINE 2020-08-18 00:00:00 Completed SARS-COV-2 COVID-19 MODERNA 12+ YRS VACCINE 2020-07-21 00:00:00 Completed [facility] SARS-COV-2 COVID-19 MODERNA VACCINE 2020-07-21 00:00:00 Completed [facility] Vital Signs Vital Name Observation Time Observation Value Comments S [place] Systolic blood pressure 2024-03-17 20:00:00 139 mm[Hg] [facility] Diastolic blood pressure 2024-03-17 20:00:00 88 mm[Hg] [facility] Heart rate 2024-03-17 20:00:00 98 /min [facility] Respiratory rate 2024-03-17 20:00:00 18 /min [facility] Oxygen saturation in Arterial blood by Pulse oximetry 2024-03-17 20:00:00 100 /min [facility] Body temperature 2024-03-17 17:00:00 36.83 Alejandrina [facility] Body height 2024-03-17 17:00:00 152.4 cm [facility] Body weight 2024-03-17 17:00:00 61.236 kg [facility] BMI 2024-03-17 17:00:00 26.37 kg/m2 [facility] Systolic blood pressure 2018-12-14 16:19:00 134 mm[Hg] [facility] Diastolic blood pressure 2018-12-14 16:19:00 87 mm[Hg] [facility] Heart rate 2018-12-14 16:19:00 100 /min [facility] Body temperature 2018-12-14 16:19:00 36.94 Alejandrina [facility] Respiratory rate 2018-12-14 16:19:00 18 /min [facility] Body weight 2018-12-14 16:19:00 65.772 kg [facility] BMI 2018-12-14 16:19:00 28.32 kg/m2 [facility] Oxygen saturation in Arterial blood by Pulse oximetry 2018-12-14 16:19:00 100 /min [facility] Systolic blood pressure 2018-12-14 16:19:00 134 mm[Hg] [facility] Diastolic blood pressure 2018-12-14 16:19:00 87 mm[Hg] [facility] Heart rate 2018-12-14 16:19:00 100 /min [facility] Body temperature 2018-12-14 16:19:00 36.94 Alejandrina [facility] Respiratory rate 2018-12-14 16:19:00 18 /min [facility] Body weight 2018-12-14 16:19:00 65.772 kg [facility] BMI 2018-12-14 16:19:00 28.32 kg/m2 [facility] Oxygen saturation in Arterial blood by Pulse oximetry 2018-12-14 16:19:00 100 /min [facility] Height 2023-04-13 03:36:00 5 [ft_i] [facility] BMI Calculated 2023-04-13 03:36:00 [facility] Weight 2023-04-13 03:36:00 [facility] [place] Systolic (mm Hg) 2023-04-13 03:36:00 [facility] Diastolic (mm Hg) 2023-04-13 03:36:00 [facility] [place] Heart Rate 2023-04-13 03:36:00 [facility] Temperature Oral (F) 2023-04-13 03:36:00 97.8 F [facility] Systolic (mm Hg) 2023-01-01 11:16:00 [facility] Diastolic (mm Hg) 2023-01-01 11:16:00 [facility] [place] Heart Rate 2023-01-01 11:16:00 [facility] Respitory Rate 2023-01-01 11:16:00 [facility] Systolic (mm Hg) 2023-01-01 10:04:00 [facility] Diastolic (mm Hg) 2023-01-01 10:04:00 [facility] Respitory Rate 2023-01-01 10:04:00 [facility] Heart Rate 2023-01-01 10:04:00 [facility] Heart Rate 2023-01-01 09:05:00 [facility] [place] Respitory Rate 2023-01-01 09:05:00 [facility] Systolic (mm Hg) 2023-01-01 09:05:00 [facility] Diastolic (mm Hg) 2023-01-01 09:05:00 [facility] [place] Height 2023-01-01 06:38:00 152.4 cm [facility] BMI Calculated 2023-01-01 06:38:00 [facility] Weight 2023-01-01 06:38:00 [facility] Temperature Oral (F) 2023-01-01 06:38:00 99 F [facility] [place] Systolic (mm Hg) 2017-05-30 23:01:00 [facility] [place] Diastolic (mm Hg) 2017-05-30 23:01:00 [facility] Temperature Oral (F) 2017-05-30 23:01:00 98.4 F [facility] [place] Weight 2017-05-30 23:01:00 [facility] Heart Rate 2017-05-30 23:01:00 [facility] Respitory Rate 2017-05-30 23:01:00 M cliffritani Jones Procedures Procedure Date / Time Performed Performing Clinician Source URINE DRUG (IMMUNOASSAY) - COMPREHENSIVE DRUG SCREEN W/O REFLEX 2024-03-17 18:29:00 Leonel Winchester [facility] URINALYSIS 2024-03-17 18:23:00 Leonel Winchester [facility] XR CHEST 1 VW 2024-03-17 18:16:56 Leonel Winchester [facility] LIPASE 2024-03-17 18:03:00 Leonel Winchester [facility] COMP. METABOLIC PANEL (00659) 2024-03-17 18:03:00 Leonel Winchester [facility] CBC WITH DIFF 2024-03-17 18:03:00 Leonel Winchester [facility] RETICULOCYTES AUTOMATED 2024-03-17 18:03:00 Ryanne Winchester [facility] POCT GLUCOSE (AUTOMATED) 2024-03-17 17:41:00 Kwame Winchester [facility] AUTHORIZATION FOR RELEASE OF PHI 2020-07-24 05:01:00 Doctor Unassigned, [place] [facility] AUTHORIZATION FOR RELEASE OF PHI 2020-05-07 06:01:00 Doctor Unassigned, [place] [facility] MR THORACIC SPINE WO CONTRAST 2020-04-27 15:14:01 Ethan Calhoun [facility] ASSIGNMENT OF BENEFITS 2020-04-27 13:58:57 Docto r Unassigned, [place] [facility] CT ABDOMEN PELVIS W CONTRAST 2019-12-21 14:06:34 Nova Hinojosa [facility] HB CREATININE BLOOD 2019-12-21 13:21:00 Trish Hinojosa [facility] ASSIGNMENT OF BENEFITS 2019-12-21 12:35:56 Docto r Unassigned, [place] [facility] XR LUMBAR SPINE 2 VW 2018-12-14 18:03:08 Manuel London [facility] XR CERVICAL SPINE 3 VW 2018-12-14 18:02:19 Tk London [facility] XR SHOULDER 2+ VW LEFT 2018-12-14 18:01:06 Tk London [facility] POCT TEST 2018-12-14 17:11:00 Mac London [facility] CONSENT/REFUSAL FOR DIAGNOSIS AND TREATMENT 2018-12-14 16:07:13 Doctor Unassigned, [place] [facility] Encounters Start Date/Time End Date/Time Encounter Type Admission Type Attending Clinicians Care Facility Care Department Encounter ID Source 2024-04-27 00:00:00 2024-04-27 16:36:43 Patient Outreach [place] [address] [place] [address] [id number] [id number] [id number] Angel Jones [facility] 2024-04-23 00:00:00 2024-04-23 12:43:05 Patient Outreach [place] [address], [address] [place] [address] [id number] 350.1.13.70 8.2.7.2.686 [id number] Angel Jones [facility] 2024-04-13 09:41:00 2024-04-13 12:36:00 Emergency Emergency FREDDY HECK General Medicine [id number] [place] 2024-03-24 00:00:00 2024-03-24 11:11:01 Letter (Out) Campaigns, Generic Provider Campaigns, Generic Provider [facility] 1..840.114 350.1.13.10 4.2.7.2.686 [id number] [facility] 2024-03-17 10:52:00 2024-03-17 14:11:00 Emergency X LEONEL WINCHESTER [facility] [id number] [facility] 2024-03-17 10:52:00 2024-03-17 14:11:00 Emergency Leonel Winchester [facility] 1..840.114 350.1.13.10 4.2.7.2.686 [id number] [facility] 2023-04-12 20:40:00 2023-04-13 02:02:00 Emergency E KIRILL MAGANA BALJIT [place] [id number] [facility] 2023-02-16 00:00:00 2023-02-16 00:00:00 Outpatient GC_GCBZW_Ka adolfo_Kaya [facility] [id number] [facility] 2023-01-01 01:15:00 2023-01-01 06:22:00 Emergency E SALVADOR GUERRA BALJIT [place] [id number] [facility] 2020-08-18 12:30:00 2020-08-18 12:30:00 Outpatient MADDIE ANDINO [facility] [id number] [facility] 2020-07-24 00:00:00 2020-07-24 00:00:00 Orders Only Doctor Unassigned, [place] [facility] 1..840.114 350.1.13.10 4.2.7.2.686 [id number] [facility] 2020-07-21 12:30:00 2020-07-21 12:30:00 Outpatient MADDIE ANDINO [facility] [id number] [facility] 2020-05-07 00:00:00 2020-05-07 00:00:00 Orders Only Doctor Unassigned, [place] [facility] 1.2.840.114 350.1.13.10 4.2.7.2.686 [id number] [facility] 2020-04-27 08:02:03 2020-04-27 23:59:00 Outpatient Emerald CALHOUN ETHAN [facility] [id number] [facility] 2020-04-27 08:00:00 2020-04-27 23:59:00 Hospital Encounter Ethan Calhoun Tal [facility] 1.2.840.114 350.1.13.10 4.2.7.2.686 [id number] 2020-04-27 08:00:00 2020-04-27 23:59:00 Hospital Encounter PeterannmarieEthan nobles [facility] 1.2.840.114 350.1.13.10 4.2.7.2.686 [id number] [facility] 2020-04-27 00:00:00 2020-04-27 00:00:00 Outpatient ETHAN SWARTZ [facility] [id number] [facility] 2020-04-27 00:00:00 2020-04-27 00:00:00 Orders Only Doctor Unassigned, [place] [facility] 1.2.840.114 350.1.13.10 4.2.7.2.686 [id number] 2020-04-27 00:00:00 2020-04-27 00:00:00 Orders Only Doctor Unassigned, [place] [facility] 1.2.840.114 350.1.13.10 4.2.7.2.686 [id number] [facility] 2020-03-14 00:00:00 2020-03-14 00:00:00 Outpatient ETHAN SWARTZ [facility] [id number] [facility] 2019-12-21 07:38:17 2019-12-21 23:59:00 [facility] 1.2.840.114 350.1.13.10 4.2.7.2.686 [id number] 2019-12-21 07:38:17 2019-12-21 23:59:00 [facility] 1.2.840.114 350.1.13.10 4.2.7.2.686 [id number] [facility] 2019-12-21 00:00:00 2019-12-21 00:00:00 Outpatient R ASHISH [facility] [id number] [facility] 2019-12-21 00:00:00 2019-12-21 00:00:00 Orders Only Doctor Unassigned, [place] [facility] 1.2.840.114 350.1.13.10 4.2.7.2.686 [id number] 2019-12-21 00:00:00 2019-12-21 00:00:00 Orders Only Doctor Unassigned, [place] [facility] 1.2.840.114 350.1.13.10 4.2.7.2.686 [id number] [facility] 2019-12-13 10:46:49 2019-12-13 23:59:00 Hospital Encounter [facility] 1.2.840.114 350.1.13.10 4.2.7.2.686 [id number] 2019-12-13 10:46:49 2019-12-13 23:59:00 Hospital Encounter Nova Hinojosa [facility] 1.2.840.114 350.1.13.10 4.2.7.2.686 [id number] [facility] 2019-12-13 00:00:00 2019-12-13 00:00:00 Outpatient R NOVA HINOJOSA [facility] [id number] [facility] 2019-06-15 08:45:00 2019-06-15 08:45:00 Outpatient R UNKNOWN, ATTENDING [facility] [id number] [facility] 2019-02-18 08:00:00 2019-02-18 08:00:00 Outpatient R LAURA HENRRY [facility] [id number] [facility] 2019-02-15 08:30:00 2019-02-15 09:51:44 Outpatient R HENRRY SANCHEZ [facility] [id number] [facility] 2019-02-12 09:36:04 2019-02-12 23:59:00 Outpatient R RADIOLOGY [facility] [id number] [facility] 2019-02-10 10:54:56 2019-02-10 23:59:00 Outpatient R RADIOLOGY [facility] [id number] [facility] 2019-01-28 13:37:02 2019-01-28 23:59:00 Outpatient R RADIOLOGY [facility] [id number] [facility] 2019-01-16 11:15:00 2019-01-16 11:40:29 Outpatient R UNKNOWN, ATTENDING [facility] [id number] [facility] 2018-12-14 11:20:59 2018-12-14 14:55:00 Emergency [facility] [id number] 2018-12-14 11:20:59 2018-12-14 14:55:00 Emergency [facility] [id number] [facility] Results Test Description Test Time Test Comments Results Result Co mments Source [facility]24[facility] 18:52:47* Test Item Value Reference Range Interpretation Comme nts LIPASE (test code = 8584091980) 156 U/L 0-220 Lab Interpretation (test cod e = 27441-2) Normal [facility] ClinicsCbc with [id number] 18:41:05* Test Item Value Reference Range Interpretation Comme nts WBC (test code = 6690-2) 6.68 4.30-11.10 RBC (test code = 789-8) 3.93 3.93-5.25 HGB (test code = 718-7) 11.6 g/dL 11.6-15.0 HCT (test code = 4544-3) 35.8 % 35.7-45.2 MCV (test code = 787-2) 91.1 fL 80.6-95.5 MCH (test code = 785-6) 29.5 pg 25.9-32.8 MCHC (test code = 786-4) 32.4 g/dL 31.6-35.1 RDW-SD (test code = 53125-1) 38.9 fL 39.0-49.9 L RDW-CV (test code = 788-0) 11.5 % 12.0-15.5 L PLT (test code = 777-3) 227 166-358 MPV (test code = 99445-1) 10.5 fL 9.5-12.9 NRBC/100 WBC (test code = 1728657996) 0.0 0.0-10.0 NRBC x10^3 (test code = 4626414077) See_Comment [Automated messa ge] The system which generated this result transmitted reference range: 10*3/?L. The reference range was not used to interpret this result as normal/abnormal. GRAN MAT (NEUT) % (test code = 770-8) 68.7 % IMM GRAN % (test code = 6718885401) 0.30 % LYMPH % (test code = 736-9) 24.7 % MONO % (test code = 5905-5) 5.2 % EOS % (test code = 713-8) 1.0 % BASO % (test code = 706-2) 0.1 % GRAN MAT x10^3(ANC) (test code = 0514193964) 4.58 10*3/uL 1.88-7.09 IMM GRAN x10^3 (test code = 2339661493) 0.00-0.06 LYMPH x10^3 (test code = 731-0) 1.65 10*3/uL 1.32-3.29 MONO x10^3 (test code = 742-7) 0.35 10*3/uL 0.33-0.92 EOS x10^3 (test code = 711-2) 0.07 10*3/uL 0.03-0.39 BASO x10^3 (test code = 704-7) 0.01-0.07 Lab Interpretation (test code = 26443-6) Abnormal [facility] ClinicsReticulocytes Qpxeacnnv6797-63-10 18:41:05* Test Item Value Reference Range Interpretation Comme nts RETIC Count Automated (test code = 2144831337) 1.50 % 0.51-1.90 RETIC Absolute Count (test c ode = 5484586671) 0.0590 0.0230-0.0950 IRF % (test code = 7966330438) 9.40 % 2.10-12.60 RETIC-HE (test code = 9755727861) 34.2 pg 28.1-35.8 Lab Interpretation (test cod e = 21878-1) Normal [facility]icsXR CHEST 1 [id number] 18:20:13HISTORY: Pain in sickle cell. TECHNIQUE: Portable AP view of the chest is obtained. FINDINGS: No acute pneumonia. No pneumothorax or pleural effusion orpulmonary congestion detected. Cardiac size is within normal limits. CONCLUSIONS: No signs of acute cardiopulmonary disease.[facility]icsPOCT GLUCOSE (AUTOMATED)2024-03-17 17:42:14* Test Item Value Reference Range Interpretation Comme nts POCT GLU (test code = 6608883451) 364 mg/dL 70-110 H Lab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 No ventriculomegaly. Paranasal sinuses: Visualized sinuses are unremarkable. No fluid levels. Mastoid air cells: Visualized mastoid air cells are well aerated. Bones/joints: Unremarkable. No acute fracture. Soft tissues: Unremarkable. IMPRESSION: No acute intracranial abnormality. Sebastian Martin MD On 04/12/2023 22:11:01; [id number] 02:14:00* Radiation Dose CTDIVOL = 0 (mGy): DLP = 739.68 (mGy-cm) PROCEDURE INFORMATION: Exam: CT Head Without Contrast Exam date and time: 01/01/2023 2:30 AM Age: 42 years old Clinical indication: Pain; Additional info: /headache TECHNIQUE: Imaging protocol: Computed tomography of the head without contrast. Radiation optimization: All CT scans at this facility use at least one of these dose optimization techniques: automated exposure control; mA and/or kV adjustment per patient size (includes targeted exams where dose is matched to clinical indication); or iterative reconstruction. REPORTING DATA: Count of CT and Cardiac NM exams in prior 12 months: This patient has received 0 known CTs and 0 known cardiac nuclear medicine studies in the 12 months prior to the current study. COMPARISON: No relevant prior studies available. RADIATION DOSE METRICS: Total DLP (mGy-cm): 739.68 FINDINGS: Brain: No acute ischemic change. No acute intracranial hemorrhage. Cerebral ventricles: No ventriculomegaly. Paranasal sinuses: Visualized sinuses are unremarkable. No fluid levels. Mastoid air cells: Visualized mastoid air cells are well aerated. Bones/joints: Unremarkable. No acute fracture. Soft tissues: Unremarkable. IMPRESSION: No acute intracranial abnormality. 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 There are no fractures, pars defects, or spondylolisthesis. The intervertebral disc spaces are normal. The posterior elements, spinous processes and transverse processes are normal. The paraspinal soft tissues are unremarkable. The visualized sacroiliac joints are unremarkable. If there is further concern or neurological abnormalities on clinical exam, MRI or CT of the lumbar spine may be performed for complete assessment. IMPRESSION: Unremarkable lumbar spine series. SL: ELPIDIO Roslyn
[2024-07-26] MEDS ORDERED: dexAMETHasone 10 MG/ML VIAL ONE (20:03)
[2024-07-26] MEDS ORDERED: KETOROLAC 30 MG/ML INJ ONE (20:03)
[2024-07-26] MEDS ORDERED: METOCLOPRAMIDE 10 MG/2mL INJ ONE (20:03)
[2024-07-26] MEDS ORDERED: DIPHENHYDRAMINE 50 MG/ML VIAL ONE (20:03)
[2024-07-26] MEDS ORDERED: NA CHLORIDE 0.9% 1,000 ML ONE ×2 (20:04→21:03)
[2024-07-26 20:24] LABS: Absolute Basophils 0.1 K/uL (0-0.5); Absolute Eosinophils 0.2 K/uL (0-0.5); Absolute Lymphocytes (CBC) 3.4 K/uL (0.7-4.9); Absolute Monocytes 0.5 K/uL (0.1-1.3); Absolute Neutrophil 5.7 K/uL (1.8-8.0); Basophils % 0.9 % (0-1.3); Eosinophils % 1.5 % (0-4.4); Hematocrit 38.7 % (36.0-45.0); Hemoglobin 12.8 g/dL (12.0-15.0); Lymphocytes % 34.5 % (15.3-44.8); MCH 29.6 pg (27.0-35.0); MCV 89.8 fL (80-100); MPV 8.4 fL (7.6-11.3); Monocytes % 5.1 % (3.3-12.3); Nucleated Red Blood Cells % 0.1 % (0-0); Platelets 337 thou/uL (152-406); RBC Red Blood Cell Count 4.31 M/uL (3.86-4.86); Red Cell Distribution Width 12.6 % (12.1-15.2)
[2024-07-26 20:39] LABS: ALT/SGPT 16 U/L (13-56); AST/SGOT < 10 U/L (15-37); Albumin 3.7 g/dL (3.4-5.0); Alkaline Phosphatase 152 U/L (45-117); Anion Gap 11.5 mEq/L (5.0-15.0); BUN Blood Urea Nitrogen 15 mg/dL (7-18); Bicarbonate 25 mEq/L (21-32); Bilirubin Total 0.2 mg/dL (0.2-1.0); Globulin 3.8 g/dL (2.3-3.5); Glomerular Filtration Rate 68 ml/min (=/>90); Lipase 64 U/L (13-75); Potassium 3.5 mEq/L (3.5-5.1); Protein, Total 7.5 g/dL (6.4-8.2); Sodium Level 130 mEq/L (136-145)
[2024-07-26 20:42] LABS: Glucose Level 592 mg/dL (74-106)
[2024-07-26] MEDS ORDERED: MORPHINE 4 MG/ML SYR ONE (21:03)
[2024-07-26] MEDS ORDERED: INSULIN REGULAR (HUMAN) 100 UNIT/ML ONE (21:03)
[2024-07-26 21:04] LABS: Specific Gravity 1.023 (1.005-1.030)
[2024-07-26 21:05] LABS: Specific Gravity 1.023 (1.005-1.030); Urine Bilirubin NEGATIVE (Negative); Urine Blood Negative (Negative); Urine Clarity Clear (Clear); Urine Color Colorless (Yellow); Urine Glucose 4+ (Over) (Negative); Urine Ketones NEGATIVE (Negative); Urine Microscopic Reflex YN NO UMIC; Urine Nitrite NEGATIVE (Negative); Urine Protein NEGATIVE (Negative); Urine Urobilinogen Normal (Normal); Urine pH 5.5 (5.0-7.0)
[2024-07-26 21:21] LABS: Influenza A Ag Negative; Influenza B Ag Negative; SARS-CoV-2 Antigen Rapid Res Negative (Negative)
--- NOTE | 2024-07-26 21:35 | RAD REPORT ---
EXAM: Right upper quadrant ultrasound. CLINICAL HISTORY: ABD PAIN COMPARISON: None. FINDINGS: Gallbladder: Normal. Bile ducts: No intrahepatic or extrahepatic biliary dilatation. Common bile duct measures 3 mm. Limited imaging of the liver shows no concerning finding. IMPRESSION: Unremarkable exam.
--- NOTE | 2024-07-26 22:23 | ER ---
Nurse's Notes [facility] Name: Jeffrey Diaz Age: 43 yrs Sex: Female : 1980 Arrival Date: 07/26/2024 Time: 19:42 Bed 14 Private MD: Diagnosis: Noninfective gastroenteritis and colitis, unspecified;Hyperglycemia, unspecified;Migraine without aura, not intractable Presentation: 07/26 19:59 Chief complaint: Patient states: c/o migraine 01/28 "pounding", n/v/d that started at 4 me1 am. Fever of 101.3 at 10 am today. C/o diffuse abdominal pain, cramping in nature. Coronavirus screen: Vaccine status: Patient reports receiving the 2nd dose of the covid vaccine. Ebola Screen: No symptoms or risks identified at this time. Initial Sepsis Screen: Does the patient meet any 2 criteria? HR > 90 bpm. Does the patient have a suspected source of infection? No. Patient's initial sepsis screen is negative. Risk Assessment: Do you want to hurt yourself or someone else? Patient reports no desire to harm self or others. Onset of symptoms was July 26, 2024 at 04:00. 19:59 Method Of Arrival: Ambulatory ak1 19:59 Acuity: NADER 3 me1 Triage Assessment: 20:10 Headache History: The patient has had previous headaches and this one is similar to rg5 previous episodes. 20:10 General: Appears uncomfortable, Behavior is calm, cooperative, appropriate for age. rg5 Pain: Complains of pain in head Pain began gradually, 4 hours ago. Also complains of nausea. 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 - Infectious Disease History:: Denies. - Social history:: Smoking status: Patient reports the use of cigarette tobacco products, denies chronic smoking, but will smoke occasionally. Screenin:18 [facility] ED Fall Risk Assessment (Adult) History of falling in the last 3 months, rg5 including since admission No falls in past 3 months (0 pts) Confusion or Disorientation No (0 pts) Intoxicated or Sedated No (0 pts) Impaired Gait No (0 pts) Mobility Assist Device Used No (0 pt) Altered Elimination No (0 pt) Score/Fall Risk Level 0 - 2 = Low Risk Oriented to surroundings, Maintained a safe environment, Hourly rounding (assess needs \\T\\ fall precautionary measures) done. Abuse screen: Denies threats or abuse. Nutritional screening: No deficits noted. Tuberculosis screening: No symptoms or risk factors identified. Assessment: 20:18 General: Appears in no apparent distress. Behavior is calm, cooperative, appropriate rg5 for age, Reports fever for 12-24 hours. Pain: Complains of pain in head Pain currently is 9 out of 10 on a pain scale. Quality of pain is described as aching. Neuro: Level of Consciousness is awake, alert, obeys commands, Oriented to person, place, time, situation, Reports headache. Cardiovascular: Denies chest pain, Patient's skin is warm and dry. Respiratory: Airway is patent Trachea midline Respiratory effort is even, unlabored, Respiratory pattern is regular, symmetrical. GI: Abdomen is flat, non-distended, Abd is soft and non tender Reports upper abdominal pain, diarrhea, nausea. : No signs and/or symptoms were reported regarding the genitourinary system. EENT: No deficits noted. Derm: Skin is intact, Skin is dry, Skin is normal, Skin temperature is warm. Musculoskeletal: Circulation, motion, and sensation intact. Range of motion: intact in all extremities. 21:00 Reassessment: No changes from previously documented assessment. Patient and/or family rg5 updated on plan of care and expected duration. Pain level reassessed. Patient is alert, oriented x 3, equal unlabored respirations, skin warm/dry/pink. 22:04 Reassessment: Patient and/or family updated on plan of care and expected duration. Pain rg5 level reassessed. Patient is alert, oriented x 3, equal unlabored respirations, skin warm/dry/pink. Patient states symptoms have improved. Vital Signs: 19:59 BP 159 / 90; Pulse 110; Resp 20; Temp 98.6; Pulse Ox 100% ; Weight 65.77 kg; Height 5 me1 ft. 0 in. ; Pain 10/10; 20:18 BP 150 / 90; Pulse 99; Resp 18; Pulse Ox 100% on R/A; Pain 9/10; rg5 21:00 BP 92 / 79; Pulse 97; Resp 18; Pulse Ox 100% on R/A; rg5 22:00 BP 118 / 85; Pulse 98; Resp 18; Pulse Ox 100% on R/A; rg5 19:59 Body Mass Index 28.32 (65.77 kg, 152.4 cm) me1 19:59 Pain Scale: Adult me1 20:18 Pain Scale: Adult rg5 ED Course: 19:49 Patient arrived in ED. al6 19:50 Debora Kennedy FNP-C is [facility]. kb 19:50 Priyanka Martinez MD is Attending Physician. kb 19:52 Heriberto Wing RN is Primary Nurse. rg5 20:01 Triage completed. me1 20:01 Arm band placed on Patient placed in an exam room. me1 20:18 Patient has correct armband on for positive identification. Bed in low position. Call rg5 light in reach. Side rails up X 1. Door closed. Noise minimized. Lights dimmed. 20:18 No provider procedures requiring assistance completed. Inserted saline lock: 20 gauge rg5 in right antecubital area, using aseptic technique. Blood collected. Flushed with 10 mL NS. Patient maintains SpO2 saturation greater than 95% on room air. 21:30 US Abdomen Limited In Process Unspecified. EDMS 22:33 Provided Education on: post er care. rg5 22:33 IV discontinued, bleeding controlled, No redness/swelling at site. Pressure dressing rg5 applied. Administered Medications: 20:14 Drug: TORadol - Ketorolac IVP 15 mg IVP once Route: IVP; Site: right antecubital; rg5 20:55 Follow up: Response: No adverse reaction; Pain is decreased rg5 20:14 Drug: NS 0.9% IV 1000 ml IV at 1 bolus Per protocol; to be given as a bolus over 60 rg5 minutes Route: IV; Rate: 1 bolus; Site: right antecubital; 20:33 Follow up: IV Status: Completed infusion; IV Intake: 1000ml rg5 20:14 Drug: metoCLOPramide IVP 10 mg IVP once; over 1 to 2 minutes Route: IVP; Site: right rg5 antecubital; 20:54 Follow up: Response: No adverse reaction; Pain is decreased rg5 20:14 Drug: diphenhydrAMINE IVP 12.5 mg IVP once Route: IVP; Site: right antecubital; rg5 20:54 Follow up: Response: No adverse reaction; Pain is decreased rg5 20:14 Drug: Decadron - Dexamethasone IVP 10 mg IVP once Route: IVP; Site: right antecubital; rg5 20:54 Follow up: Response: No adverse reaction; Pain is decreased rg5 21:10 Drug: NS 0.9% IV 1000 ml IV at 1000 ml once; to be given as a bolus over 60 minutes rg5 Route: IV; Rate: 1000 ml; Site: right antecubital; 22:25 Follow up: IV Status: Completed infusion; IV Intake: 1000ml rg5 21:10 Drug: Insulin Regular Human IVP 10 units IVP once {Co-Signature: br2 (Chelsie Ceron RN).} Route: IVP; Site: right antecubital; 22:02 Follow up: Response: No adverse reaction rg5 21:10 Drug: morphine IVP or IV 4 mg IVP once over 4 mins Route: IVP; Infused Over: 4 mins; rg5 Site: right antecubital; 22:02 Follow up: Response: No adverse reaction; Pain is decreased rg5 Medication: 20:18 VIS not applicable for this client. rg5 Point of Care Testing: Blood Glucose: 22:17 Blood Glucose: 113 mg/dL; rg5 Ranges: Intake: 20:33 IV: 1000ml; Total: 1000ml. rg5 22:25 IV: 1000ml; Total: 2000ml. rg5 Outcome: 22:23 Discharge ordered by . kb 22:32 Condition: stable rg5 22:32 Discharge instructions given to patient, Instructed on discharge instructions, follow up and referral plans. Demonstrated understanding of instructions, Prescriptions given X 1, 22:33 Discharged to home ambulatory, rg5 22:48 Patient left the ED. ha1 Signatures: Dispatcher [employer] Debora Jones, CASSIA UMANA-Mary Torres RN RN ha1 Magda Tapia RN RN ak1 Heriberto Wing RN RN rg5 Shraddha Costa al6 Chelsie Ceron RN br2 Corrections: (The following items were deleted from the chart) 20:26 20:22 Pain: Also complains of rg5 rg5
--- NOTE | 2024-07-26 22:23 | EDPHYS ---
Physician Documentation [facility] Name: Jeffrey Diaz Age: 43 yrs Sex: Female : 1980 Arrival Date: 07/26/2024 Time: 19:42 Bed 14 Private MD: ED Physician Priyanka Martinez HPI: 07/26 21:03 This 43 yrs old Black Female presents to ER via Ambulatory with complaints of Headache, kb Vomiting/Diarrhea, Fever. 21:03 Pt is a 43 year old female who presents for nausea, vomiting, diarrhea, upper abd pain, kb fever and headache that started this morning. Reports history of migraines similar to this. . 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 - Infectious Disease History:: Denies. - Social history:: Smoking status: Patient reports the use of cigarette tobacco products, denies chronic smoking, but will smoke occasionally. ROS: 20:28 Constitutional: As per HPI kb Exam: 20:28 Constitutional: This is a well developed, well nourished patient who is awake, alert, kb and in no acute distress. Head/Face: Normocephalic, atraumatic. ENT: Moist Mucous membranes Cardiovascular: Regular rate Respiratory: Respirations even and unlabored. No increased work of breathing. Talking in full sentences Skin: Warm, dry with normal turgor. Normal color. MS/ Extremity: Pulses equal, no cyanosis. Neurovascular intact. Full, normal range of motion. Neuro: Awake and alert, GCS 15, oriented to person, place, time, and situation. 21:03 Abdomen/GI: Inspection: abdomen appears normal, Bowel sounds: normal, Palpation: soft, kb in all quadrants, moderate abdominal tenderness, in the right upper quadrant, Vital Signs: 19:59 BP 159 / 90; Pulse 110; Resp 20; Temp 98.6; Pulse Ox 100% ; Weight 65.77 kg; Height 5 me1 ft. 0 in. ; Pain 10/10; 20:18 BP 150 / 90; Pulse 99; Resp 18; Pulse Ox 100% on R/A; Pain 9/10; rg5 21:00 BP 92 / 79; Pulse 97; Resp 18; Pulse Ox 100% on R/A; rg5 22:00 BP 118 / 85; Pulse 98; Resp 18; Pulse Ox 100% on R/A; rg5 19:59 Body Mass Index 28.32 (65.77 kg, 152.4 cm) me1 19:59 Pain Scale: Adult me1 20:18 Pain Scale: Adult rg5 MDM: 19:50 Medical Screening Exam initiated kb 22:21 Data reviewed: vital signs, nurses notes. kb 22:21 Differential diagnosis: viral gastroenteritis, cholelithiasis, dehydration, DKA, kb hyperglycemia. Consideration of Admission/Observation Escalation of care including admission/observation considered. admission considered but pt is feeling better, BGL decreased, no DKA. . Counseling: I had a detailed discussion with the patient and/or guardian regarding the historical points, exam findings, and any diagnostic results supporting the discharge/admit diagnosis, lab results, radiology results, the need for outpatient follow up, a family practitioner, to return to the emergency department if symptoms worsen or persist or if there are any questions or concerns that arise at home. 07/26 19:59 Order name: CBC with Diff; Complete Time: 20:47 kb 07/26 19:59 Order name: CMP; Complete Time: 20:47 kb 07/26 19:59 Order name: Lipase; Complete Time: 20:47 kb 07/26 19:59 Order name: Test, Urine; Complete Time: 21:09 kb 07/26 19:59 Order name: Urinalysis w/ reflexes; Complete Time: 21:09 kb 07/26 20:29 Order name: COVID-19 Ag + Flu A+B Ag; Complete Time: 21:27 kb 07/26 21:10 Order name: Glucose, Ancillary Testing; Complete Time: 21:11 EDMS 07/26 22:28 Order name: Glucose, Ancillary Testing; Complete Time: 22:30 EDMS 07/26 20:53 Order name: US Abdomen Limited; Complete Time: 21:40 kb 07/26 19:59 Order name: IV Saline Lock; Complete Time: 20:14 kb 07/26 19:59 Order name: Labs collected and sent; Complete Time: 20:14 kb Administered Medications: 20:14 Drug: TORadol - Ketorolac IVP 15 mg IVP once Route: IVP; Site: right antecubital; rg5 20:55 Follow up: Response: No adverse reaction; Pain is decreased rg5 20:14 Drug: NS 0.9% IV 1000 ml IV at 1 bolus Per protocol; to be given as a bolus over 60 rg5 minutes Route: IV; Rate: 1 bolus; Site: right antecubital; 20:33 Follow up: IV Status: Completed infusion; IV Intake: 1000ml rg5 20:14 Drug: metoCLOPramide IVP 10 mg IVP once; over 1 to 2 minutes Route: IVP; Site: right rg5 antecubital; 20:54 Follow up: Response: No adverse reaction; Pain is decreased rg5 20:14 Drug: diphenhydrAMINE IVP 12.5 mg IVP once Route: IVP; Site: right antecubital; rg5 20:54 Follow up: Response: No adverse reaction; Pain is decreased rg5 20:14 Drug: Decadron - Dexamethasone IVP 10 mg IVP once Route: IVP; Site: right antecubital; rg5 20:54 Follow up: Response: No adverse reaction; Pain is decreased rg5 21:10 Drug: NS 0.9% IV 1000 ml IV at 1000 ml once; to be given as a bolus over 60 minutes rg5 Route: IV; Rate: 1000 ml; Site: right antecubital; 22:25 Follow up: IV Status: Completed infusion; IV Intake: 1000ml rg5 21:10 Drug: Insulin Regular Human IVP 10 units IVP once {Co-Signature: br2 (Chelsie Ceron 5 RN).} Route: IVP; Site: right antecubital; 22:02 Follow up: Response: No adverse reaction rg5 21:10 Drug: morphine IVP or IV 4 mg IVP once over 4 mins Route: IVP; Infused Over: 4 mins; rg5 Site: right antecubital; 22:02 Follow up: Response: No adverse reaction; Pain is decreased rg5 Point of Care Testing: Blood Glucose: 22:17 Blood Glucose: 113 mg/dL; rg5 Ranges: Critical Glucose Levels:Adult <50 mg/dl or >400 mg/dl <40 mg/dl or >180 mg/dl Disposition Summary: 07/26/24 22:23 Discharge Ordered Notes: Location: Home kb Condition: Stable kb Diagnosis - Noninfective gastroenteritis and colitis, unspecified kb - Hyperglycemia, unspecified kb - Migraine without aura, not intractable kb Followup: kb - With: Emergency Department - When: As needed - Reason: Worsening of condition Followup: kb - With: Private Physician - When: 2 - 3 days - Reason: Recheck today's complaints, Continuance of care, Re-evaluation by your physician Discharge Instructions: - Discharge Summary Sheet kb - Food Choices to Help Relieve Diarrhea, Adult kb - Viral Gastroenteritis, Adult, Ajum-dt-Fwal kb - Migraine Headache, Qqhs-ne-Mqdm kb - Hyperglycemia, Qctd-dy-Ugsk kb Forms: - Medication Reconciliation Form kb - Antibiotic Education kb - Prescription Opioid Use kb - Patient Portal Instructions kb - Leadership Thank You Letter kb - Work release form kmf Prescriptions: - Zofran 4 mg Oral tablet - take 1 tablet ORAL route every 6 hours As needed; 12 tablet; Refills: 0, kb Product Selection Permitted Signatures: Dispatcher [employer] EDDebora Pollard, [employer]LE [employer] BUTTON MAKER-C [employer] MAKER-Esdrasb Priyanka Martinez MD MD sp3 Magda Tapia, RN RN me1 Heriberto Wing RN RN rg5 Chelsie Ceron RN br2
[2024-07-26 22:54] VITALS: TEMP 98.6; O2SAT 100
[2024-07-26 22:59] VITALS: BP 118/85
== END 2024-07-26 22:48 | disposition home or self-care (01) ==
LOC: ER 19:42
DX: K52.9 Noninfective gastroenteritis and colitis, unspecified (principal); E11.65 Type 2 diabetes mellitus with hyperglycemia; G43.009 Migraine without aura, not intractable, without status migrainosus; F17.210 Nicotine dependence, cigarettes, uncomplicated; Z11.52 Encounter for screening for COVID-19
CPT/HCPCS: 96361; 85025; 36415; 81025; 82947 ×2; 81003; 83690; 80053; 76705; 96375; 96374; 99284; 87428; J2765; J1200; J1100; J1815; J7030 ×2